=== PATIENT | female | born 1955 | race Caucasian/White ===

== ENCOUNTER 2016-08-06 21:04 | Emergency (ER) | payer OTHER ==
[2016-08-06 21:08] VITALS: RESP 18
[2016-08-06] MEDS ORDERED: RX INFO: IV CONTRAST WAS GIVEN 1 EACH MISC MISCELLANE PRN (21:36)
[2016-08-06] MEDS ORDERED: HYDROmorphone 1 MG/ML 1 ML SYRINGE IVP STA (21:36)
[2016-08-06] MEDS ORDERED: ONDANSETRON 4 MG/2 ML VIAL IVP STA (21:36)
[2016-08-06] MEDS ORDERED: SODIUM CHLORIDE 0.9% 1,000 ML IV STA (21:36)
--- NOTE | 2016-08-06 21:55 | ED ---
Abdominal Pain HPI - General Chief Complaint: Abdominal Pain Stated Complaint: L side pain Time Seen by Provider: 08/06/16 21:32 Source: patient, RN notes reviewed Mode of arrival: wheelchair Limitations: no limitations - History of Present Illness Initial Comments: This a 61-year-old female presents emergency Department with chief complaint of left sided abdominal pain. Patient states that she felt she had some pain a few months ago but states the last few days she's had intense left-sided abdominal pain. Patient states she took her pain medication [place] at home with no relief for her pain. Patient denies any diarrhea, constipation, melena or hematochezia. Patient had some nausea no vomiting. Patient states that nothing seems to make the pain feel better or worse. Patient has no history of kidney stones. She did admit to some urinary frequency and dysuria. Patient states that she called her primary care physician who advised her to come emergency department. Patient denies any history of diverticulitis. Patient states she had a colonoscopy a few years ago which showed no acute abnormality. - Related Data Home Medications Medication Instructions Recorded Confirmed ALPRAZolam [Xanax] 0.25 mg PO TID PRN 08/10/13 08/06/16 Albuterol Nebulized [Ventolin 2.5 mg INHALATION RT-Q6H PRN 08/10/13 08/06/16 Nebulized] Albuterol Sulfate [Ventolin HFA] 2 puff INHALATION RT-Q4H PRN 08/10/13 08/06/16 DULoxetine HCL [Cymbalta] 90 mg PO HS 08/10/13 08/06/16 Fluticasone Propionate [Flonase] 1 spray EA NOSTRIL BID 08/10/13 08/06/16 Levothyroxine Sodium [Synthroid] 25 mcg PO DAILY 08/10/13 08/06/16 Meclizine HCl [Antivert] 12.5 mg PO TID PRN 08/10/13 08/06/16 Omeprazole [PriLOSEC] 20 mg PO AC-BRKFST 08/10/13 08/06/16 Simvastatin [Simvastatin] 40 mg PO HS 08/10/13 08/06/16 Sucralfate [Carafate] 1 gm PO BID 08/10/13 08/06/16 Acetaminophen Tab [Tylenol Tab] 500 mg PO BID PRN 07/13/15 08/06/16 traMADol HCL [Ultram] 50 mg PO Q6H PRN 07/13/15 08/06/16 traZODone HCL [Desyrel] 50 mg PO HS 07/13/15 08/06/16 Amoxicillin 500 mg PO Q8H 08/06/16 08/06/16 Cetirizine HCl [Zyrtec] 5 mg PO DAILY 08/06/16 08/06/16 Diphenox-Atrop 2.5-0.025 mg 1 tab PO QID PRN 08/06/16 08/06/16 [Lomotil] Ferrous Sulfate [Feosol] 325 mg PO BID 08/06/16 08/06/16 HYDROcodone/APAP 5-325MG [[place] 0.5 tab PO Q6H PRN 08/06/16 08/06/16 5-325] HYDROcodone/APAP 5-325MG [[place] 1 tab PO Q6HR PRN 08/06/16 08/06/16 5-325] Pregabalin [Lyrica] 75 mg PO HS 08/06/16 08/06/16 Ranitidine HCl [Zantac] 150 mg PO HS 08/06/16 08/06/16 Previous Rx's Medication Instructions Recorded Bisacodyl [Dulcolax] 5 mg PO DAILY #30 tablet. 08/06/16 Allergies Allergy/AdvReac Type Severity Reaction Status Date / Time aspirin AdvReac Severe GI Bleeding Verified 08/06/16 21:52 codeine AdvReac Abdominal Verified 08/06/16 21:08 Pain menthol AdvReac Chest Pain Verified 08/06/16 21:52 NSAIDS (Non-Steroidal AdvReac Abdominal Verified 08/06/16 21:08 Anti-Inflamma Pain Tetracyclines AdvReac Diarrhea Verified 08/06/16 21:08 Review of Systems ROS Statement: Those systems with pertinent positive or pertinent negative responses have been documented in the HPI. ROS Other: All systems not noted in ROS Statement are negative. 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 HTN IN PAST. HAD STEROID INJ X2 IN PAST WK TO LT SIDE OF THIGH - HAS BURNING PAIN, SCHEDULED TO HAVE EMG. History of Any Multi-Drug Resistant Organisms: None Reported Past Surgical History: Ear Surgery, Joint Replacement, Orthopedic Surgery, Tonsillectomy Additional Past Surgical History / Comment(s): TOTAL LT KNEE. LT ROTATOR CUFF REPAIR. LT HAND JOINT SURG X2. SINUS SURG Past Anesthesia/Blood Transfusion Reactions: Postoperative Nausea & Vomiting ( PONV) Past Psychological History: Anxiety, Depression, Panic Disorder Smoking Status: Never smoker Past Alcohol Use History: None Reported Past Drug Use History: None Reported - Past Family History Mother Family Medical History: Deep Vein Thrombosis (DVT) General Exam Limitations: no limitations General appearance: alert, in no apparent distress Respiratory exam: Present: normal lung sounds bilaterally. Absent: respiratory distress, wheezes, rales, rhonchi, stridor Cardiovascular Exam: Present: regular rate, normal rhythm, normal heart sounds. Absent: systolic murmur, diastolic murmur, rubs, gallop, clicks GI/Abdominal exam: Present: soft, tenderness (Moderate left-sided abdominal tenderness), normal bowel sounds. Absent: distended, guarding, rebound, rigid Back exam: Present: CVA tenderness (L). Absent: CVA tenderness (R) Skin exam: Present: warm, dry, intact, normal color. Absent: rash Course Vital Signs 08/06/16 08/06/16 21:06 22:39 Temperature 98.0 F Pulse Rate 98 89 Respiratory 18 18 Rate Blood Pressure 141/70 134/68 O2 Sat by Pulse 96 96 Oximetry Medical Decision Making - Medical Decision Making 61-year-old female presents emergency Department with left-sided abdominal pain. Patient's laboratory, CT were reviewed there is no acute findings other than chronic constipation. Patient will be given laxatives and enemas to go home with. Return parameters discussed - Lab Data Result diagrams: 08/06/16 21:39 08/06/16 21:39 Lab Results 08/06/16 08/06/16 08/06/16 Range/Units 21:39 21:39 21:39 WBC 6.9 (3.8-10.6) k/uL RBC 4.57 (3.80-5.40) m/uL Hgb 15.1 (11.4-16.0) gm/dL Hct 45.3 (34.0-46.0) % MCV 99.2 (80.0-100.0) fL MCH 33.0 (25.0-35.0) pg MCHC 33.2 (31.0-37.0) g/dL RDW 13.0 (11.5-15.5) % Plt Count 276 (150-450) k/uL Neutrophils % 45 % Lymphocytes % 43 % Monocytes % 5 % Eosinophils % 4 % Basophils % 1 % Neutrophils # 3.1 (1.3-7.7) k/uL Lymphocytes # 3.0 (1.0-4.8) k/uL Monocytes # 0.4 (0-1.0) k/uL Eosinophils # 0.3 (0-0.7) k/uL Basophils # 0.1 (0-0.2) k/uL PT 10.2 (9.0-12.0) sec INR 1.0 (<1.1) APTT 24.1 (22.0-30.0) sec Sodium 143 (137-145) mmol/L Potassium 4.0 (3.5-5.1) mmol/L Chloride 107 (98-107) mmol/L Carbon Dioxide 24 (22-30) mmol/L Anion Gap 12 mmol/L BUN 15 (7-17) mg/dL Creatinine 0.59 (0.52-1.04) mg/dL Est GFR (MDRD) Af Amer >60 (>60 ml/min/1.73 sqM) Est GFR (MDRD) Non-Af >60 (>60 ml/min/1.73 sqM) Glucose 104 H (74-99) mg/dL Calcium 8.8 (8.4-10.2) mg/dL Total Bilirubin 0.5 (0.2-1.3) mg/dL AST 23 (14-36) U/L ALT 28 (9-52) U/L Alkaline Phosphatase 89 (38-126) U/L Total Protein 7.1 (6.3-8.2) g/dL Albumin 4.0 (3.5-5.0) g/dL Amylase 35 (30-110) U/L Lipase 80 (23-300) U/L Urine Color Urine Appearance (Clear) Urine pH (5.0-8.0) Ur Specific [place] (1.001-1.035) Urine Protein (Negative) Urine Glucose (UA) (Negative) Urine Ketones (Negative) Urine Blood (Negative) Urine Nitrite (Negative) Urine Bilirubin (Negative) Urine Urobilinogen (<2.0) mg/dL Ur Leukocyte Esterase (Negative) Urine RBC (0-5) /hpf Urine Mucus (None) /hpf 08/06/16 Range/Units 22:23 WBC (3.8-10.6) k/uL RBC (3.80-5.40) m/uL Hgb (11.4-16.0) gm/dL Hct (34.0-46.0) % MCV (80.0-100.0) fL MCH (25.0-35.0) pg MCHC (31.0-37.0) g/dL RDW (11.5-15.5) % Plt Count (150-450) k/uL Neutrophils % % Lymphocytes % % Monocytes % % Eosinophils % % Basophils % % Neutrophils # (1.3-7.7) k/uL Lymphocytes # (1.0-4.8) k/uL Monocytes # (0-1.0) k/uL Eosinophils # (0-0.7) k/uL Basophils # (0-0.2) k/uL PT (9.0-12.0) sec INR (<1.1) APTT (22.0-30.0) sec Sodium (137-145) mmol/L Potassium (3.5-5.1) mmol/L Chloride (98-107) mmol/L Carbon Dioxide (22-30) mmol/L Anion Gap mmol/L BUN (7-17) mg/dL Creatinine (0.52-1.04) mg/dL Est GFR (MDRD) Af Amer (>60 ml/min/1.73 sqM) Est GFR (MDRD) Non-Af (>60 ml/min/1.73 sqM) Glucose (74-99) mg/dL Calcium (8.4-10.2) mg/dL Total Bilirubin (0.2-1.3) mg/dL AST (14-36) U/L ALT (9-52) U/L Alkaline Phosphatase (38-126) U/L Total Protein (6.3-8.2) g/dL Albumin (3.5-5.0) g/dL Amylase (30-110) U/L Lipase (23-300) U/L Urine Color Light Yellow Urine Appearance Clear (Clear) Urine pH 5.0 (5.0-8.0) Ur Specific [place] 1.026 (1.001-1.035) Urine Protein Negative (Negative) Urine Glucose (UA) Negative (Negative) Urine Ketones Negative (Negative) Urine Blood Negative (Negative) Urine Nitrite Negative (Negative) Urine Bilirubin Negative (Negative) Urine Urobilinogen <2.0 (<2.0) mg/dL Ur Leukocyte Esterase Moderate H (Negative) Urine RBC <1 (0-5) /hpf Urine Mucus Rare H (None) /hpf Disposition Clinical Impression: Constipation, Abdominal pain Disposition: HOME SELF-CARE Condition: Stable Instructions: Constipation (ED) Additional Instructions: Please return to the Emergency Department if symptoms worsen or any other concerns. Prescriptions: Bisacodyl [Dulcolax] 5 mg PO DAILY #30 tablet.dr Referrals: Reid Montano MD [Primary Care Provider] - 1-2 days Time of Disposition: 22:51
[2016-08-06 22:10] LABS: Basophils # (A) 0.1 k/uL (0-0.2); Basophils % (A) 1 %; CH 33.1; CHCM 33.5; Eosinophils # (A) 0.3 k/uL (0-0.7); Eosinophils % (A) 4 %; HCT 45.3 % (34.0-46.0); HDW 2.69; HGB 15.1 gm/dL (11.4-16.0); Luc # (Auto) 0.15; Luc % (Auto) 2; Lymphocytes % (A) 43 %; MCHC 33.2 g/dL (31.0-37.0); MCV 99.2 fL (80.0-100.0); Mean Platelet Volume 7.2; Monocytes # (A) 0.4 k/uL (0-1.0); Monocytes % (A) 5 %; Neutrophils # (A) 3.1 k/uL (1.3-7.7); Neutrophils % (A) 45 %; RBC 4.57 m/uL (3.80-5.40); WBC 6.9 k/uL (3.8-10.6); WBC (Perox) 6.61
[2016-08-06 22:20] LABS: Partial Thromboplastin Time 24.1 sec (22.0-30.0); Prothrombin Time 10.2 sec (9.0-12.0)
[2016-08-06 22:28] LABS: ALT 28 U/L (9-52); AST 23 U/L (14-36); Alkaline Phosphatase 89 U/L (38-126); Amylase 35 U/L (30-110); Anion Gap 12 mmol/L; Blood Urea Nitrogen 15 mg/dL (7-17); Calcium 8.8 mg/dL (8.4-10.2); Carbon Dioxide 24 mmol/L (22-30); Chloride 107 mmol/L (98-107); Glucose 104 mg/dL (74-99); Non-African American GFR(MDRD) >60 (>60 ml/min/1.73 sqM); Sodium 143 mmol/L (137-145); Total Bilirubin 0.5 mg/dL (0.2-1.3); Total Protein 7.1 g/dL (6.3-8.2)
[2016-08-06 22:40] VITALS: BP 134/68; PULSE 89
[2016-08-06 22:45] LABS: Appearance,Urine Clear (Clear); Bilirubin,Urine Negative (Negative); Glucose,Urine (UA) Negative (Negative); Ketones,Urine Negative (Negative); Leukocyte Esterase,Urine Moderate (Negative); Mucus,Urine Rare /hpf; Nitrite,Urine Negative (Negative); Particle Count 577; Protein,Urine Negative (Negative); RBC,Urine <1 /hpf (0-5); Specific Gravity,Urine 1.026 (1.001-1.035); UA Billing (MACRO vs. MICRO) MICRO; Urobilinogen,Urine <2.0 mg/dL (<2.0)
--- NOTE | 2016-08-06 22:47 | CT ---
EXAM: CT Abdomen and Pelvis With Intravenous Contrast CLINICAL HISTORY: Left-sided abdominal pain for 2 days. TECHNIQUE: Axial computed tomography images of the abdomen and pelvis with intravenous contrast. CTDI is 17.60 mGy and DLP is 858.70 mGy-cm. CTDI is 15.70 mGy and DLP is 367 mGy-cm. This CT exam was performed using one or more of the following dose reduction techniques: automated exposure control, adjustment of the mA and/or kV according to patient size, and/or use of iterative reconstruction technique. Coronal and sagittal reformatted images were created and reviewed. CONTRAST: 100 mL of Omniscan administered intravenously. COMPARISON: CT abdomen pelvis dated 04/07/14. FINDINGS: Lower thorax: No acute findings. ABDOMEN: Liver: Unremarkable. Gallbladder and bile ducts: Unremarkable. No calcified stones. Pancreas: Unremarkable. Spleen: Unremarkable. Adrenals: Unremarkable. Kidneys and ureters: Unremarkable. No solid mass. No hydronephrosis. Stomach and bowel: Moderate colonic stool suggesting constipation. No evidence of bowel obstruction. Few colonic diverticula. No evidence of diverticulitis. Appendix: No evidence of appendicitis. PELVIS: Bladder: Unremarkable. Reproductive: Unremarkable as visualized. ABDOMEN and PELVIS: Intraperitoneal space: Unremarkable. No free air. No significant fluid collection. Bones/joints: Degenerative changes. No acute fracture. Soft tissues: Unremarkable. Vasculature: Unremarkable as visualized. No abdominal aortic aneurysm. IMPRESSION: 1. No acute findings to explain left sided abdominal pain. 2. Moderate colonic stool suggesting constipation.
[2016-08-06] MEDS ORDERED: MAGNESIUM CITRATE 296 ML BOTTLE PO ONE (22:54)
[2016-08-06 22:57] VITALS: TEMP 97.4
== END 2016-08-06 22:59 | disposition home or self-care (01) ==
LOC: EC 21:04
DX: K59.00 Constipation, unspecified (principal); R10.9 Unspecified abdominal pain; R11.0 Nausea; R30.0 Dysuria; K21.9 Gastro-esophageal reflux disease without esophagitis; I10 Essential (primary) hypertension; E78.5 Hyperlipidemia, unspecified; E07.9 Disorder of thyroid, unspecified; F41.0 Panic disorder [episodic paroxysmal anxiety]; F32.9 Major depressive disorder, single episode, unspecified; Z79.899 Other long term (current) drug therapy; Z88.6 Allergy status to analgesic agent; Z88.5 Allergy status to narcotic agent; Z88.1 Allergy status to other antibiotic agents; Z88.8 Allergy status to other drugs, medicaments and biological substances
CPT/HCPCS: 36415; 80053; 82150; 83690; 85025; 85610; 85730; 81001; 74177; 99284; 96374; 96375; 96361; J2405; J1170; Q9967

== ENCOUNTER → 2016-12-20 | Outpatient (CLI) | payer OTHER ==
--- NOTE | 2016-12-20 14:39 | XR ---
EXAMINATION TYPE: XR chest 2V DATE OF EXAM: 12/20/2016 COMPARISON: Prior chest x-ray 02/09/2014 HISTORY: Shortness of breath and cough TECHNIQUE: Frontal and lateral views of the chest are obtained. FINDINGS: There is no focal air space opacity, pleural effusion, or pneumothorax seen. The cardiac silhouette size is within normal limits. The osseous structures are intact. IMPRESSION: No acute cardiopulmonary process.
== END | disposition home or self-care (01) ==
LOC: RADXRMAIN 10:17
PROVIDERS: ATTEND Internal Medicine Pulmonary Disease
DX: R05 Cough (principal); R06.02 Shortness of breath
CPT/HCPCS: 71020

== ENCOUNTER → 2017-02-19 | Outpatient (CLI) | payer OTHER | END | disposition home or self-care (01) | LOC: CPPFTMAIN 10:18 | PROVIDERS: ATTEND Internal Medicine | DX: R06.02 Shortness of breath (principal) | CPT/HCPCS: 94060; 94726; 94729 ==

== ENCOUNTER → 2017-03-19 | Outpatient (CLI) | payer OTHER ==
[2017-03-19 11:18] LABS: HCT 39.4 % (34.0-46.0); HGB 13.2 gm/dL (11.4-16.0); MCH 32.8 pg (25.0-35.0); MCHC 33.5 g/dL (31.0-37.0); MCV 97.7 fL (80.0-100.0); Mean Platelet Volume 7.1; Platelet Count 234 k/uL (150-450); RBC 4.03 m/uL (3.80-5.40); RDW 12.7 % (11.5-15.5); WBC 6.1 k/uL (3.8-10.6)
[2017-03-19 11:23] LABS: INR 1.1 (<1.2); Partial Thromboplastin Time 24.9 sec (22.0-30.0); Prothrombin Time 10.6 sec (9.0-12.0)
[2017-03-19 11:24] LABS: Appearance,Urine Clear (Clear); Bacteria,Urine Rare /hpf; Bilirubin,Urine Negative (Negative); Blood,Urine Negative (Negative); Color,Urine Light Yellow; Glucose,Urine (UA) Negative (Negative); Ketones,Urine Negative (Negative); Leukocyte Esterase,Urine Small (Negative); Mucus,Urine Rare /hpf; PH, Urine 5.5 (5.0-8.0); Protein,Urine Negative (Negative); Specific Gravity,Urine 1.003 (1.001-1.035); Squamous Epithelial Cell,Urine <1 /hpf (0-4); Urobilinogen,Urine <2.0 mg/dL (<2.0); WBC,Urine 2 /hpf (0-5)
[2017-03-19 11:35] LABS: ALT 19 U/L (9-52); AST 20 U/L (14-36); Albumin 3.9 g/dL (3.5-5.0); Alkaline Phosphatase 60 U/L (38-126); Anion Gap 8 mmol/L; Blood Urea Nitrogen 15 mg/dL (7-17); Carbon Dioxide 30 mmol/L (22-30); Chloride 105 mmol/L (98-107); Glucose 82 mg/dL (74-99); Potassium 4.1 mmol/L (3.5-5.1); Sodium 143 mmol/L (137-145); Total Bilirubin 0.3 mg/dL (0.2-1.3); Total Protein 6.5 g/dL (6.3-8.2)
== END | disposition home or self-care (01) ==
LOC: LABPAT 10:28
PROVIDERS: ATTEND Orthopaedic Surgery
DX: Z01.812 Encounter for preprocedural laboratory examination (principal); Z79.01 Long term (current) use of anticoagulants
CPT/HCPCS: 36415; 80053; 81001; 85027; 85610; 85730; 87070

== ENCOUNTER 2017-04-02 07:57 | Inpatient (IN) | payer OTHER ==
[2017-03-27 12:07] VITALS: BMI 34.3
[~2017-04-02 07:57] MED LIST: ACETAMINOPHEN TAB 500 MG TAB PO ONE; DEXAMETHASONE SOD PHOSPHATE 10 MG/ML 1 ML VIAL IV ONE; HYDROmorphone 0.5 MG/0.5 ML SYRINGE IVP PRN; LACTATED RINGERS 1,000 ML IV SCH; MELOXICAM 7.5 MG TAB PO ONE; MIDAZOLAM 2 MG/2 ML VIAL IV PRN; ONDANSETRON 4 MG/2 ML VIAL IVP ONE; Pre Op ABX Message 1 EACH MISC MISCELLANE ONE; ROPIVACAINE 246.25 MG, EPINEPHrine 0.5 MG, KETOROLAC 30 MG, cloNIDine HCL/PF 80 MCG, WA... MISCELLANE ONE; TRANEXAMIC ACID 1,000 MG in SODIUM CHLORIDE 0.9% 50 ML IVPB ONE; VANCOMYCIN 1,500 MG in SODIUM CHLORIDE 0.9% 250 ML IVPB ONE
[2017-04-02] MEDS ORDERED: LIDOCAINE 1% 20 ML VIAL (10MG/ML) FOR IV START INTRADERMA ONE (09:48)
--- NOTE | 2017-04-02 11:09 | P.ONQ ---
Anesthesiology Proc Note - PNB - Peripheral Nerve Block Performed Right Adductor Canal Infusion Time Out Performed: Yes Procedure Start Time: 10:53 Procedure Stop Time: 10:59 Indication: Acute Post-Operative Pain, Requested by physician Sedation Type: Sedate with meaningful contact maintained Preparation: Sterile Dressing Position: Supine Catheter: Indwelling Needle Types: On-Q Needle Size: 100mm (4") Needle Gauge: 21 Technique: Ultrasound Injectate: 0.5% Ropivacaine (see comment for volume) (ropi.5% 20cc) Blood Aspirated: No Pain Paresthesia on Injection Noted: No Resistance on Injection: Normal Events: Uneventful and Well Tolerated
[2017-04-02] MEDS ORDERED: ROPIVACAINE 1,100 MG, SODIUM CHLORIDE 0.9% 330 ML MISCELLANE PRN ×2 (11:10)
[2017-04-02] MEDS ORDERED: HYDROcodone/APAP 7.5-325MG 1 EACH TAB PO PRN (11:56)
[2017-04-02] MEDS ORDERED: ONDANSETRON 4 MG/2 ML VIAL IVP PRN (11:56)
[2017-04-02] MEDS ORDERED: NALOXONE 0.4 MG/ML 1 ML VIAL IV PRN (11:56)
[2017-04-02] MEDS ORDERED: NA PHOS,M-B/NA PHOS,DI-BA 133 ML ENEMA RECTAL PRN (11:56)
[2017-04-02] MEDS ORDERED: DIAZEPAM 5 MG TAB PO PRN (11:56)
[2017-04-02] MEDS ORDERED: BISACODYL 10 MG SUPP RECTAL PRN (11:56)
[2017-04-02] MEDS ORDERED: MAGNESIUM HYDROXIDE 2,400 MG/10 ML CUP PO PRN (11:56)
[2017-04-02] MEDS ORDERED: HYDROmorphone 0.5 MG/0.5 ML SYRINGE IVP PRN ×2 (11:56)
[2017-04-02] MEDS ORDERED: MIDAZOLAM 2 MG/2 ML VIAL ONE (12:12)
[2017-04-02] MEDS ORDERED: TRANEXAMIC ACID 1,000 MG/10 ML VIAL ONE (12:12)
[2017-04-02] MEDS ORDERED: LIDOCAINE 1% INJ 10MG/ML (20 ML MDV) ONE (12:12)
[2017-04-02] MEDS ORDERED: SODIUM CHLORIDE 0.9% 100 ML BAG ONE (12:12)
[2017-04-02] MEDS ORDERED: ePHEDrine SULFATE/0.9% NACL/PF 50 MG/5 ML SYRINGE IV ONE (12:12)
[2017-04-02] MEDS ORDERED: PROPOFOL 10 MG/ML 20 ML VIAL IV ONE (12:12)
[2017-04-02] MEDS ORDERED: fentaNYL (PF) 50 MCG/ML 2 ML AMP ONE (12:12)
--- NOTE | 2017-04-02 12:16 | P.OP ---
Date of Procedure: 04/02/17 Preoperative Diagnosis: Severe osteoarthritis right knee Postoperative Diagnosis: Severe osteoarthritis right knee Procedure(s) Performed: Right total knee arthroplasty Implants: Forrest [employer] Nephew Oxinium femoral component size 6, right Forrest [employer] Nephew Savi II right nonporous tibial baseplate size 5 Forrest [employer] Nephew size 11 mm Legion XLPE dished articular insert, size 5-6 Forrest [employer] Nephew Savi II resurfacing patellar component, 32 mm All components were cemented using Jil bone cement.. The articulation is Oxinium on polyethylene. Anesthesia: spinal Surgeon: Josr Mathis Managing Consultant Clinical Professor #1: Eleni Pruitt Estimated Blood Loss (ml): 50 Pathology: other (Bone and cartilage) Condition: stable Disposition: PACU Indications for Procedure: After failure of conservative treatment we discussed the surgical and nonsurgical treatment options at length. Patient wishes to proceed with a total knee arthroplasty. Complications specific to this procedure were discussed at length, including but not limited to infection, bleeding, stiffness , and nerve injury. Patient is aware of all these complications and informed consent was obtained Operative Findings: The operative findings are consistent with severe osteoarthritis of the right knee Description of Procedure: Patient was seen in the preoperative area consent was reviewed and operative site was marked with a skin marker. An adductor canal pain catheter was placed by anesthesia in the preoperative area. Patient was then brought to the operating room and given preoperative antibiotics intravenously. A spinal anesthetic was administered by the anesthesia department. A tourniquet was placed on the upper thigh and the lower extremity was prepped and draped in usual sterile fashion. A gram of transexamic acid was given. A universal timeout was then performed which confirmed the patient's name, surgical site, ALLERGIES, and consent. The lower extremity was then exsanguinated and tourniquet was inflated to 250 mmHg. A standard and anterior midline approach to the knee was performed. The skin and subcutaneous tissue was dissected down to the patellar tendon. A medial parapatellar arthrotomy was then performed. The knee was then extended, the patellar was everted, and the knee was again flexed. Anterior horns of both menisci were excised, and a release was performed to the posterior medial aspect of the knee. On gross visual inspection, there was complete loss of articular cartilage in the medial and patellofemoral joint spaces. There was also significant cartilage damage in the lateral compartment. There were multiple periarticular osteophytes which were then removed with a Ronguer. The femoral canal was then opened with the appropriate drill, and the intramedullary femoral cutting guide was then placed and set for 4 of valgus. The distal femoral cutting block was then pinned in place, and the distal femur was then cut. The cutting block was then removed and the cut was checked for flatness. Next, the sizing guide was then placed and set for 3 external rotation based off of the epicondylar axis and [place] line. After the femur was sized, the appropriate 4-in-1 cutting block was then pinned in place. The anterior condyles were cut without notching. The posterior and chamfer cuts were performed while protecting the collateral ligaments. The cutting block was then removed, and the femoral canal was plugged with autologous bone. Attention was then directed to the tibia. The remaining ACL was removed with a Ronguer, and the tibia was then gently subluxed forward with a large bent knee retractor. Any remaining menisci was excised. The posterior lateral corner was cauterized in order to cauterize the lateral geniculate artery. The extra medullary tibial cutting guide was then placed, set for the appropriate rotation , slope, and depth of resection. The proximal tibia cutting guide was then pinned in place. Proximal tibia was then cut and sized. Next trials were then placed with the appropriate-sized insert. The knee was able to fully extend and flex to 130 and was stable throughout all range of motion. The knee was then extended, patella everted. Patella was then measured, and then using an osteotomy guide, the patella was cut at the appropriate level. The patella was then measured and drilled and the patella trial was then placed. The knee was then taken through range of motion with the patella trial and the patella tracked normally. The knee was then extended patella trial was then removed and the patella was everted. Knee was then flexed and lug holes were drilled through the femoral trial and the femoral trial was then removed. The tibial was then exposed, and the tibial broach guide was then pinned in place after it was set for the appropriate rotation to allow for the most coverage without overhang. The tibia was then reamed and broached. The cut surfaces of bone were then irrigated with pulsatile lavage. The posterior structures were injected with the ropivacaine solution. The knee was also irrigated with Irrisept solution. The components were then opened, the cement was mixed, and the components were then cemented in place. The cement was allowed to harden with the knee in full extension. While the cement was hardening, the remaining soft tissues were then injected with a ropivacaine solution, which consisted of 246.25 mg of ropivacaine, 0.5 mg of epinephrine, 30 mg of Toradol, 80 g of clonidine, and 48.45 mL of sterile water, for a total of 100 mL of fluid injected. After the cemented hardened. The tourniquet was released, and hemostasis was obtained. A second gram of transexamic acid was given. The knee was again irrigated. The knee was again taken through range of motion and found to be stable throughout all range of motion of 0-130 , and the patella tracked normally. The fascia was then closed with #2 strata fix suture. The subcutaneous tissue was closed with 3-0 Vicryl and 3-0 strata fix. Dermabond glue was used for the skin and placed with the knee in flexion. The patient was placed in a sterile silver dressing. Patient was then transferred to recovery room in stable condition. The state tested nursing assistant MALU Brandt was required due the complexity surgery and the need for a skilled surgical orderly. She assisted in positioning, draping, retraction, and closure of the wound.
[2017-04-02] MEDS ORDERED: ceFAZolin 3,000 MG in SODIUM CHLORIDE 0.9% IRRIGATIO 3,000 ML IRRIGATION ONE (12:41)
--- NOTE | 2017-04-02 14:07 | XR ---
Limited right knee HISTORY: Postop 2 views of the right knee correlated to prior exam 10/29/2014 Patient is status post right knee arthroplasty. Alignment is maintained. Lucency in the soft tissues compatible with postop state. IMPRESSION: Orthopedic follow-up.
[2017-04-02] MEDS ORDERED: LACTATED RINGERS 1,000 ML IV ONE (14:48)
[2017-04-02] MEDS ORDERED: DIPHENOX-ATROP 2.5-0.025 MG 1 EACH TAB PO PRN (15:46)
[2017-04-02] MEDS ORDERED: MECLIZINE 12.5 MG TAB PO PRN (15:46)
[2017-04-02] MEDS ORDERED: ACETAMINOPHEN TAB 500 MG TAB PO PRN (15:46)
[2017-04-02] MEDS ORDERED: ALPRAZolam 0.25 MG TAB PO PRN (15:46)
[2017-04-02] MEDS ORDERED: ALBUTEROL NEBULIZED 2.5 MG/3 ML INHALATION PRN (15:46)
[2017-04-02] MEDS: SODIUM CHLORIDE 0.9% 1,000 ML IV SCH (16:06)
--- NOTE | 2017-04-02 17:24 | CONS ---
CONSULTATION DATE OF SERVICE: 04/02/2017 REASON FOR CONSULTATION: Advice regarding DVT, asthma, and other multiple medical issues requested by Dr. Mathis. HISTORY OF PRESENT ILLNESS: This 62-year-old woman with a past medical history of multiple medical problems, possible asthma, DVT, GERD, DJD, history of hypertension, apnea, being followed by Dr. Montano in the outpatient setting underwent right total knee arthroplasty for severe DJD by Dr. Mathis. The patient tolerated the procedure well. There is no history of chest pain. No palpitations. No headache, loss of conscious or seizures. No nausea or vomiting , diarrhea, shortness of breath at this time. PAST MEDICAL HISTORY: History of asthma, DVT, GERD, GI bleed, hypertension, hyperlipidemia, history of degenerative joint disease. MEDICATIONS: Prior to admission include home medications are: 1. Desyrel 100 mg at bedtime. 2. Ultram 50 mg q.6 hours. 3. Carafate 1 gm p.o. b.i.d. 4. Zantac 150 mg q.h.s. 5. Lyrica 75 mg p.o. b.i.d. 6. Prilosec 20 mg b.i.d. 7. Antivert 12.5 mg t.i.d. p.r.n. 8. Synthroid 25 mcg p.o. daily. 9. [place] 7.5 q.4h p.r.n. 10.Flonase 1 spray b.i.d. 11.Lomotil 2.5 q.i.d. p.r.n. 12.Cymbalta 90 mg p.o. q.h.s. 13.Zyrtec 35 mg q.h.s. 14.Pulmicort 1 puff b.i.d. 15.Lipitor 40 mg q.h.s. 16.Ventolin HFA 2 puffs q.4h p.r.n. 17.Tylenol 500 mg b.i.d. p.r.n. 18.Xanax 0.5 t.i.d. p.r.n. ALLERGIES: ARE NAPROSYN, TOPAMAX, ASPIRIN, BENADRYL, CODEINE, MENTHOL, NSAIDS, TETRACYCLINE. FAMILY HISTORY: History of DVT in the family. SOCIAL HISTORY: History of smoking. No history of alcohol intake. REVIEW OF SYSTEMS: ENT: No diminished vision. No diminished hearing. CARDIOVASCULAR: No angina. Respiratory: As mentioned earlier. GI no nausea or vomiting. : No dysuria. NERVOUS SYSTEM: As mentioned earlier. ALLERGY/IMMUNOLOGY: As mentioned earlier. Musculoskeletal: As mentioned earlier . Hematology/Oncology: No history of anemia. Endocrine: No diabetes. Hypothyroidism. Constitutional: As mentioned earlier. Dermatology: Negative. Rheumatology: Negative. Psychiatric: As mentioned earlier. PHYSICAL EXAM: Patient is alert, oriented x3. Pulse is 85, blood pressure 116/74, respiration 16, temp is normal. Pulse ox 94% on room air. HEENT: Conjunctivae normal. Oral mucosa moist. Neck is no jugular venous distention. No carotid bruit. No lymph node enlargement. Cardiovascular S1-S2 muffled. No S3, no S4. Respiratory: Breath sounds diminished in the bases. No rhonchi and no crackles. ABDOMEN: Soft, nontender. No mass palpable. Legs: Status post knee arthroplasty. Nervous system: Higher functions as mentioned earlier. Moves all four limbs. No focal deficits. Lymphatics: No lymph nodes palpable in the neck, axillae or groin. Skin no ulcer, rash or bleeding. LABS: The CBC/BMP within normal limits. Glucose 120. UA unremarkable. ASSESSMENT: 1. Status post right total knee joint arthroplasty. 2. History of asthma. 3. History of deep vein thrombosis. 4. History of gastrointestinal bleed. 5. Gastroesophageal reflux disease. 6. Hypertension. 7. Hyperlipidemia. 8. History of degenerative joint disease. 9. Hypothyroidism. 10.History of joint replacement. 11.Anxiety, depression, panic disorder. RECOMMENDATION: In this 62-year-old woman who presented after surgery at this time I recommend to continue current medications, management and symptomatic treatment. Otherwise I would recommend DVT prophylaxis and the patient is started resume the home medications. Symptomatic treatment. Xanax for anxiety. Otherwise, we will follow incentive spirometry. Follow the patient closely. The patient will also be asked to follow up with primary care physician closely after discharge. Thank you, Dr. Mathis for letting us participate in the care of this patient. MMODL / IJN: [id number] /
[2017-04-02] MEDS: ALBUTEROL NEBULIZED 2.5 MG/3 ML INHALATION PRN (20:25)
[2017-04-02] MEDS: BUDESONIDE 1 MG/2 ML NEBU INHALATION SCH (20:25)
[2017-04-02] MEDS ORDERED: VANCOMYCIN 1,250 MG in SODIUM CHLORIDE 0.9% 250 ML IVPB ONE (21:00)
[2017-04-02] MEDS: FLUTICASONE 50MCG/SPRAY NASAL 16GM EA NOSTRIL SCH (21:19)
[2017-04-02] MEDS: FAMOTIDINE 20 MG TAB PO SCH (21:20)
[2017-04-02] MEDS: SUCRALFATE 1 GM TAB PO SCH (21:20)
[2017-04-02] MEDS: traZODone HCL 50 MG TAB PO SCH (21:20)
[2017-04-02] MEDS: DULoxetine HCL 30 MG CAPSULE.DR PO SCH (21:20)
[2017-04-02] MEDS: ATORVASTATIN 40 MG TAB PO SCH (21:20)
[2017-04-02] MEDS: LORATADINE 10 MG TAB PO SCH (21:20)
[2017-04-02] MEDS: HEPARIN SODIUM,PORCINE 5,000 UNIT/ML 1 ML VIAL SQ SCH (21:21)
[2017-04-02] MEDS: SENNOSIDES-DOCUSATE SODIUM 1 EACH TAB PO SCH (21:28)
[2017-04-02] MEDS: PREGABALIN 75 MG CAP PO SCH (21:29)
[2017-04-03] MEDS: DIAZEPAM 5 MG TAB PO PRN ×2 (00:50→15:12)
[2017-04-03] MEDS: SODIUM CHLORIDE 0.9% 1,000 ML IV SCH ×3 (04:06→17:45)
[2017-04-03] MEDS: LEVOTHYROXINE 25 MCG TAB PO SCH (06:00)
--- NOTE | 2017-04-03 07:24 | P.PN ---
Progress Note - Text Progress Note Date: 04/03/17 . Postoperative day # 1 status post total knee arthroplasty,, and adductor canal catheter placed for postoperative analgesia, currently at ropivacaine 0.2 % 12 mL per hour , ( increased from 8 ) , continuous infusion, visual analogue scale is 5/10, patient using oral pain medication for breakthrough pain. Assessment and plan= Acute postoperative pain, adductor canal catheter for pain control, patient was complaining of pain , and the infusion increased to 12 mL per hour , we'll continue the same management.
[2017-04-03] MEDS: ALBUTEROL NEBULIZED 2.5 MG/3 ML INHALATION PRN (07:27)
[2017-04-03] MEDS: BUDESONIDE 1 MG/2 ML NEBU INHALATION SCH ×2 (07:27→19:06)
[2017-04-03] MEDS: PANTOPRAZOLE 40 MG TABLET PO SCH (07:49)
[2017-04-03 08:21] LABS: Basophils % (A) 0 %; Eosinophils % (A) 0 %; HCT 32.3 % (34.0-46.0); HGB 10.6 gm/dL (11.4-16.0); Lymphocytes # (A) 2.7 k/uL (1.0-4.8); Lymphocytes % (A) 23 %; MCH 31.4 pg (25.0-35.0); MCHC 32.8 g/dL (31.0-37.0); MCV 95.8 fL (80.0-100.0); Mean Platelet Volume 7.6; Monocytes # (A) 0.5 k/uL (0-1.0); Monocytes % (A) 5 %; Neutrophils # (A) 8.1 k/uL (1.3-7.7); Neutrophils % (A) 70 %; Platelet Count 215 k/uL (150-450); RBC 3.37 m/uL (3.80-5.40); RDW 12.9 % (11.5-15.5); WBC 11.5 k/uL (3.8-10.6)
[2017-04-03] MEDS ORDERED: MELOXICAM 7.5 MG TAB PO SCH (09:00)
[2017-04-03] MEDS: HEPARIN SODIUM,PORCINE 5,000 UNIT/ML 1 ML VIAL SQ SCH (09:04)
[2017-04-03] MEDS: SUCRALFATE 1 GM TAB PO SCH ×2 (09:05→22:58)
[2017-04-03] MEDS: FLUTICASONE 50MCG/SPRAY NASAL 16GM EA NOSTRIL SCH ×2 (09:05→23:00)
[2017-04-03] MEDS: PREGABALIN 75 MG CAP PO SCH ×2 (09:05→23:00)
--- NOTE | 2017-04-03 09:06 | P.PN ---
Subjective Progress Note Date: 04/03/17 This is a 62-year-old female who is status post right total knee arthroplasty. This is postoperative day #1. Patient is seen and evaluated at bedside with Dr. Josr Mathis. Patient does complain of muscle cramping to the back of her right lower leg with walking. Patient states she has not been walking with physical therapy yet. Patient denies any fever/chills, numbness, weakness, tingling, abdominal pain, shortness of breath or chest pain. Objective - Vital Signs Vital signs: Vital Signs Temp 98.4 F 04/03/17 07:00 Pulse 80 04/03/17 07:42 Resp 16 04/03/17 07:00 BP 129/74 04/03/17 07:00 Pulse Ox 96 04/03/17 07:00 Intake & Output 04/02/17 04/03/17 04/03/17 18:59 06:59 18:59 Intake Total 1451 715 Output Total 50 Balance 1401 715 Weight 87.997 kg Intake: IV 1451 Intake, IV Titration 715 Amount Sodium Chloride 0.9% 1, 715 000 ml @ 65 mls/hr IV . Q29H18B [facility] Rx#:[id number] Output: Estimated Blood Loss 50 Other: Voiding Method Toilet - Exam Vital signs are stable. Patient is in no acute distress and is alert and oriented 3. Calf is soft but tender to palpation. Discomfort with Mendy's sign. Dressing is clean, dry, and intact. Patient has full foot and ankle motion without difficulty. Neurovascular status and circulatory status are intact. - Labs CBC & Chem 7: 04/03/17 07:35 Labs: Abnormal Lab Results - Last 24 Hours (Table) 04/03/17 Range/Units 07:35 WBC 11.5 H (3.8-10.6) k/uL RBC 3.37 L (3.80-5.40) m/uL Hgb 10.6 L (11.4-16.0) gm/dL Hct 32.3 L (34.0-46.0) % Neutrophils # 8.1 H (1.3-7.7) k/uL Assessment and Plan (1) Primary osteoarthritis of right knee Current Visit: Yes Status: Acute Code(s): M17.11 - UNILATERAL PRIMARY OSTEOARTHRITIS, RIGHT KNEE SNOMED Code(s): 831340824843213 (2) S/P total knee arthroplasty Current Visit: Yes Status: Acute Code(s): Z96.659 - PRESENCE OF UNSPECIFIED ARTIFICIAL KNEE JOINT SNOMED Code(s): 0161330128259 Plan: #1 Continue with routine postoperative care, leave dressing in place for 10 days. #2 Anticoagulation with Coumadin per ortho protocol. Doppler of right lower extremity pending. #3 Physical therapy and CPM today. #4 Appreciate input from medicine. #5 Anticipate discharge to rehab Saturday.
--- NOTE | 2017-04-03 10:25 | US ---
EXAMINATION TYPE: US venous doppler duplex LE RT DATE OF EXAM: 04/03/2017 10:12 AM COMPARISON: Prior right lower extremity venous ultrasound February 09, 2014 CLINICAL HISTORY: pain. Right total knee replacement yesterday (04/02/17). Pain and edema right leg SIDE PERFORMED: right TECHNIQUE: The lower extremity deep venous system is examined utilizing real time linear array sonog raghav with graded compression, doppler sonography and color-flow sonography. VESSELS IMAGED: External Iliac Vein (EIV) Common Femoral Vein Deep Femoral Vein Greater Saphenous Vein * Femoral Vein Popliteal Vein Small Saphenous Vein * Proximal Calf Veins (* superficial vessels) Right Leg: *Technical limitations due to recent surgery and swelling. No evidence of acute DVT as vi sualized. Unable to visualize lower femoral vein for compression. limited evaluation of popliteal vei n due to compression from edema. Grayscale, color doppler, spectral doppler imaging performed of the deep veins of the lower extremiti es. There is normal flow, compressibility, vascular waveforms in visualized portions. Some portions are suboptimally evaluated near site of surgery distal superficial femoral vein and popliteal vein. IMPRESSION: No evidence of acute DVT in visualized portion of right lower extremity above site of s urgery.
[2017-04-03 10:51] LABS: INR 1.3 (<1.2); Prothrombin Time 12.5 sec (9.0-12.0)
[2017-04-03] MEDS ORDERED: HYDROmorphone 2 MG TAB PO PRN ×2 (13:51)
--- NOTE | 2017-04-03 14:27 | XR ---
EXAMINATION TYPE: XR chest 1V DATE OF EXAM: 04/03/2017 COMPARISON: Prior chest x-ray 12/20/2016 HISTORY: Rehabilitation placement TECHNIQUE: Single frontal view of the chest is obtained. FINDINGS: There is no focal air space opacity, pleural effusion, or pneumothorax seen. The cardiac silhouette size is within normal limits. Calcified granuloma present right lower lobe. The osseous structures are intact. IMPRESSION: No acute process.
[2017-04-03] MEDS ORDERED: WARFARIN 5 MG TAB PO ONE (18:00)
[2017-04-03] MEDS ORDERED: WARFARIN 7.5 MG TAB PO ONE (18:00)
[2017-04-03] MEDS ORDERED: WARFARIN 2.5 MG TAB PO ONE (18:00)
[2017-04-03] MEDS: hydrOXYzine PAMOATE 25 MG CAP PO PRN (19:29)
[2017-04-03] MEDS: HYDROcodone/APAP 7.5-325MG 1 EACH TAB PO PRN (19:30)
[2017-04-03] MEDS: ATORVASTATIN 40 MG TAB PO SCH (22:58)
[2017-04-03] MEDS: FAMOTIDINE 20 MG TAB PO SCH (22:59)
[2017-04-03] MEDS: DULoxetine HCL 30 MG CAPSULE.DR PO SCH (22:59)
[2017-04-03] MEDS: LORATADINE 10 MG TAB PO SCH (23:00)
[2017-04-03] MEDS: traZODone HCL 50 MG TAB PO SCH (23:00)
[2017-04-03] MEDS: SENNOSIDES-DOCUSATE SODIUM 1 EACH TAB PO SCH (23:00)
--- NOTE | 2017-04-03 23:00 | PN ---
PROGRESS NOTE DATE OF SERVICE: 04/03/2017 This 62-year-old woman who was admitted after right total knee arthroplasty improved significantly. No chest pain. No palpitations. No fever. EXAM: Alert and oriented x 3. Pulse 90, blood pressure 140/66, respirations 16, temperature 97.8, pulse ox 97% on room air. HEENT: Conjunctivae normal. NECK: No jugular venous distention. CARDIOVASCULAR: S1, S2 muffled. RESPIRATORY: Breath sounds diminished in the bases. A few scattered rhonchi. No crackles. ABDOMEN: Soft, nontender. LEGS: Status post surgery. NERVOUS SYSTEM: Nonfocal. LABS: WBC 7.8, hemoglobin is 10.8, INR 1.3. ASSESSMENT: 1. Status post right total knee arthroplasty. 2. History of asthma. 3. History of deep venous thrombosis. 4. History of gastrointestinal bleed. 5. Gastroesophageal reflux disease. 6. Hypertension. 7. Hyperlipidemia. 8. History of degenerative joint disease. 9. History of hypothyroidism. 10.History of joint replacement. 11.History of anxiety, depression, panic disorder. RECOMMENDATION AND DISCUSSION: Recommend to continue current medical management and symptomatic treatment. incentive spirometry, DVT prophylaxis. Closely follow with Orthopedic Surgery. The patient is started on orthopedic Coumadin protocol. Continue to monitor. Further recommendations to follow. MMODL / IJN: [id number] /
[2017-04-04] MEDS: HYDROcodone/APAP 7.5-325MG 1 EACH TAB PO PRN ×2 (01:04→07:14)
[2017-04-04] MEDS: DIAZEPAM 5 MG TAB PO PRN (01:04)
--- NOTE | 2017-04-04 06:34 | P.PN ---
Progress Note - Text Progress Note Date: 04/04/17 The patient is doing well status post RT total knee replacement on 04/02/17. Her pain is well controlled by a combination of local anesthetic infusion through her adductor canal catheter and oral analgesics. There are no signs of infection around the catheter skin entry site. The local anesthetic infusion will be continued as per protocol.
[2017-04-04] MEDS: LEVOTHYROXINE 25 MCG TAB PO SCH (07:14)
[2017-04-04 07:18] LABS: INR 1.4 (<1.2); Prothrombin Time 13.1 sec (9.0-12.0)
[2017-04-04 07:40] VITALS: BP 119/68; RESP 14; TEMP 97.9
[2017-04-04] MEDS: PREGABALIN 75 MG CAP PO SCH (07:44)
[2017-04-04] MEDS: PANTOPRAZOLE 40 MG TABLET PO SCH (07:44)
[2017-04-04] MEDS: SUCRALFATE 1 GM TAB PO SCH (07:44)
[2017-04-04] MEDS: FLUTICASONE 50MCG/SPRAY NASAL 16GM EA NOSTRIL SCH (07:44)
[2017-04-04] MEDS: SODIUM CHLORIDE 0.9% 1,000 ML IV SCH (07:45)
[2017-04-04] MEDS ORDERED: HYDROcodone/APAP 10-325MG 1 EACH TAB PO PRN ×2 (09:05)
--- NOTE | 2017-04-04 09:09 | P.PN ---
Subjective Progress Note Date: 04/04/17 This is a 62-year-old female who is status post right total knee arthroplasty. This is postoperative day #2. Patient states she had quite a bit of pain in the right knee overnight. Patient states she was up and walking with physical therapy and to the bathroom several times last night. Patient denies any new complaints today. Patient denies any fever/chills, numbness, weakness, tingling , abdominal pain, shortness of breath or chest pain. Objective - Vital Signs Vital signs: Vital Signs Temp 97.9 F 04/04/17 07:00 Pulse 80 04/04/17 07:00 Resp 14 04/04/17 07:00 BP 119/68 04/04/17 07:00 Pulse Ox 96 04/04/17 07:00 Intake & Output 04/03/17 04/04/17 04/04/17 18:59 06:59 18:59 Intake Total 500 Balance 500 Intake: Oral 500 Other: Voiding Method Toilet Toilet # Voids 2 1 - Exam Vital signs are stable. Patient is in no acute distress and is alert and oriented 3. Calf is soft and nontender to palpation. Dressing is clean, dry, and intact. Patient has full foot and ankle motion without difficulty. Neurovascular status and circulatory status are intact. - Labs CBC & Chem 7: 04/03/17 07:35 Labs: Abnormal Lab Results - Last 24 Hours (Table) 04/03/17 04/04/17 Range/Units 10:28 06:52 PT 12.5 H 13.1 H (9.0-12.0) sec INR 1.3 H 1.4 H (<1.2) Assessment and Plan (1) Primary osteoarthritis of right knee Current Visit: Yes Status: Acute Code(s): M17.11 - UNILATERAL PRIMARY OSTEOARTHRITIS, RIGHT KNEE SNOMED Code(s): 907275064979373 (2) S/P total knee arthroplasty Current Visit: Yes Status: Acute Code(s): Z96.659 - PRESENCE OF UNSPECIFIED ARTIFICIAL KNEE JOINT SNOMED Code(s): 8017449921868 Plan: #1 Continue with routine postoperative care, leave dressing in place for 10 days. #2 Anticoagulation with Coumadin per ortho protocol. Doppler of right lower extremity is negative for DVT. #3 Physical therapy and CPM today. #4 Appreciate input from medicine. #5 Will increase [place] for better pain control. #6 Anticipate discharge to rehab Saturday.
[2017-04-04] MEDS: BUDESONIDE 1 MG/2 ML NEBU INHALATION SCH (09:12)
[2017-04-04 09:16] VITALS: PULSE 66
--- NOTE | 2017-04-04 12:53 | P.DS ---
Providers Date of admission: 04/02/17 07:57 Expected date of discharge: 04/04/17 Attending physician: Josr Mathis Consults: 04/02/17 11:56 Consult Physician Routine Consulting Provider: Mac Austin Consult Reason/Comments: medical management and anticoagulation Do you want consulting provider notified?: Yes Primary care physician: Reid Montano - Discharge Diagnosis(es) (1) Primary osteoarthritis of right knee Current Visit: Yes Status: Acute (2) S/P total knee arthroplasty Current Visit: Yes Status: Acute Hospital Course: This is a 62-year-old female with known history of degenerative arthritis of the right knee. The patient presents for evaluation. After discussion and consideration patient elects to proceed with total knee arthroplasty. The patient is seen preoperatively by Dr. Mathis and cleared for surgery. Patient is admitted to [facility] on 04/02/2017 for total knee arthroplasty. The procedures performed without complication or sequelae. The patient is doing well postoperatively. Labs and vital signs are stable on day of discharge. Patient did have a venous Doppler ultrasound of the right lower extremity during admission and this was negative for DVT. On day of discharge patient's knee incision is healing well. There is minimal erythema. There is no drainage noted at this time. There is minimal soft tissue swelling to the knee. Patient has full foot and ankle motion without difficulty or pain. Neurovascular status to the right lower extremity is intact. Patient is discharged to rehab in good condition. Please see med rec for accurate list of home medications. Plan - Discharge Summary Discharge Rx Participant: No New Discharge Prescriptions: New Sennosides-Docusate Sodium [Senokot-S] 2 each PO HS tab HYDROcodone/APAP 10-325MG [Dwight 10-325] 1 - 2 tab PO Q4-6H PRN #90 tab PRN Reason: Pain Warfarin Sodium [Coumadin] 2.5 mg PO DAILY #30 tablet Continue Albuterol Nebulized [Ventolin Nebulized] 2.5 mg INHALATION RT-Q6H PRN PRN Reason: Dyspnea Levothyroxine Sodium [Synthroid] 25 mcg PO DAILY Omeprazole [PriLOSEC] 20 mg PO BID Fluticasone Propionate [Flonase] 1 spray EA NOSTRIL BID DULoxetine HCL [Cymbalta] 90 mg PO HS Sucralfate [Carafate] 1 gm PO BID Meclizine HCl [Antivert] 12.5 mg PO TID PRN PRN Reason: Vertigo Albuterol Sulfate [Ventolin HFA] 2 puff INHALATION RT-Q4H PRN PRN Reason: Dyspnea ALPRAZolam [Xanax] 0.25 mg PO TID PRN PRN Reason: Anxiety/Insomnia Acetaminophen Tab [Tylenol] 500 mg PO BID PRN PRN Reason: Pain traMADol HCL [Ultram] 50 mg PO Q6H PRN PRN Reason: Pain traZODone HCL [Desyrel] 100 mg PO HS Pregabalin [Lyrica] 75 mg PO BID Cetirizine HCl [Zyrtec] 5 mg PO HS Diphenox-Atrop 2.5-0.025 mg [Lomotil] 1 tab PO QID PRN PRN Reason: Diarrhea Ranitidine HCl [Zantac] 150 mg PO HS HYDROcodone/APAP 7.5-325MG [Dwight 7.5-325] 1 tab PO Q4-6H PRN PRN Reason: Pain Atorvastatin [Lipitor] 40 mg PO HS Budesonide [Pulmicort Flexhaler] 1 puff INHALATION RT-BID Discharge Medication List ALPRAZolam [Xanax] 0.25 mg PO TID PRN 08/10/13 [History] Albuterol Nebulized [Ventolin Nebulized] 2.5 mg INHALATION RT-Q6H PRN 08/10/13 [ History] Albuterol Sulfate [Ventolin HFA] 2 puff INHALATION RT-Q4H PRN 08/10/13 [History] DULoxetine HCL [Cymbalta] 90 mg PO HS 08/10/13 [History] Fluticasone Propionate [Flonase] 1 spray EA NOSTRIL BID 08/10/13 [History] Levothyroxine Sodium [Synthroid] 25 mcg PO DAILY 08/10/13 [History] Meclizine HCl [Antivert] 12.5 mg PO TID PRN 08/10/13 [History] Omeprazole [PriLOSEC] 20 mg PO BID 08/10/13 [History] Sucralfate [Carafate] 1 gm PO BID 08/10/13 [History] Acetaminophen Tab [Tylenol] 500 mg PO BID PRN 07/13/15 [History] traMADol HCL [Ultram] 50 mg PO Q6H PRN 07/13/15 [History] traZODone HCL [Desyrel] 100 mg PO HS 07/13/15 [History] Cetirizine HCl [Zyrtec] 5 mg PO HS 08/06/16 [History] Diphenox-Atrop 2.5-0.025 mg [Lomotil] 1 tab PO QID PRN 08/06/16 [History] Pregabalin [Lyrica] 75 mg PO BID 08/06/16 [History] Ranitidine HCl [Zantac] 150 mg PO HS 08/06/16 [History] Atorvastatin [Lipitor] 40 mg PO HS 03/27/17 [History] Budesonide [Pulmicort Flexhaler] 1 puff INHALATION RT-BID 03/27/17 [History] HYDROcodone/APAP 7.5-325MG [Dwight 7.5-325] 1 tab PO Q4-6H PRN 03/27/17 [History] Sennosides-Docusate Sodium [Senokot-S] 2 each PO HS tab 04/03/17 [Rx] HYDROcodone/APAP 10-325MG [Dwight 10-325] 1 - 2 tab PO Q4-6H PRN #90 tab [Rx] Warfarin Sodium [Coumadin] 2.5 mg PO DAILY #30 tablet 04/04/17 [Rx] Follow up Appointment(s)/Referral(s): Reid Montano MD [Primary Care Provider] - 1 Week Josr Mathis DO [Doctor of Osteopathic Medicine] - 04/18/17 1:00 pm (With Eleni) Ambulatory/Diagnostic Orders: Continuous Passive Motion (CPM) Machine [DME.AMB1] Time Frame: 3 Weeks, Location : Determined By Patient Activity/Diet/Wound Care/Special Instructions: Weightbearing as tolerated with a walker CPM 5-6h daily Leave dressing intact. May be removed by home care nurse in 10 days, 2017. May shower with dressing on. [facility] with questions or concerns [phone] Discharge Disposition: TRANSFER TO SNF/ECF
--- NOTE | 2017-04-04 13:44 | PN ---
PROGRESS NOTE DATE OF SERVICE: 04/04/2017 This 62-year-old woman who was admitted after right total knee arthroplasty is improving significantly. No chest pain. No palpitations. No fever. PHYSICAL EXAM: Alert and oriented x3. Pulse 80, blood pressure 119/60, respirations 14, temperature 97.2, pulse ox 98% on room air. HEENT: Conjunctivae normal. Oral mucosa moist. Neck is no jugular venous distention. No carotid bruit. No lymph node enlargement. No thyroid enlargement. CARDIOVASCULAR: S1, S2. No S3, no S4. RESPIRATORY: Breath sounds diminished in the bases. No rhonchi, no crackles. ABDOMEN: Soft. LEGS: Status post knee arthroplasty. NERVOUS SYSTEM: No focal deficits. LABS: INR 1.4. ASSESSMENT: 1. Status post right total knee joint arthroplasty. 2. History of asthma. 3. History of deep vein thrombosis. 4. History of GI bleed. 5. History of gastroesophageal reflux disease. 6. Hypertension. 7. Hyperlipidemia. 8. History of degenerative joint disease. 9. Hypothyroidism. 10.History of joint replacement. 11.Anxiety, depression and panic disorder. RECOMMENDATIONS AND DISCUSSION I recommend to continue current management and symptomatic treatment. Otherwise closely monitor. PT, OT evaluation, possible ECF rehab. Closely follow with outpatient surgery. Further recommendations to follow. MMODL / IJN: [id number] /
[2017-04-04] MEDS: hydrOXYzine PAMOATE 25 MG CAP PO PRN (14:25)
[2017-04-04] MEDS ORDERED: WARFARIN 7.5 MG TAB PO ONE (18:00)
== END 2017-04-04 15:50 | DRG 470 ==
LOC: 2ORMAIN 07:57 → 3SUR 14:43
PROVIDERS: ADMIT Orthopaedic Surgery; ATTEND Orthopaedic Surgery
PROC: 0SRC069 Replacement of Right Knee Joint with Oxidized Zirconium on Polyethylene Synthetic Substitute, Cemented, Open Approach (ICD-10-PCS; principal; 2017-04-02 11:35)
DX: M17.11 Unilateral primary osteoarthritis, right knee (principal); E03.9 Hypothyroidism, unspecified; H91.90 Unspecified hearing loss, unspecified ear; J45.909 Unspecified asthma, uncomplicated; G89.18 Other acute postprocedural pain; F32.9 Major depressive disorder, single episode, unspecified; E78.5 Hyperlipidemia, unspecified; K21.9 Gastro-esophageal reflux disease without esophagitis; I10 Essential (primary) hypertension; F41.0 Panic disorder [episodic paroxysmal anxiety]; Z79.51 Long term (current) use of inhaled steroids; Z79.899 Other long term (current) drug therapy; Z87.891 Personal history of nicotine dependence; Z87.81 Personal history of (healed) traumatic fracture; Z86.718 Personal history of other venous thrombosis and embolism; Z96.652 Presence of left artificial knee joint; Z90.710 Acquired absence of both cervix and uterus; Z87.11 Personal history of peptic ulcer disease; Z88.6 Allergy status to analgesic agent; Z88.1 Allergy status to other antibiotic agents; Z88.5 Allergy status to narcotic agent; Z88.8 Allergy status to other drugs, medicaments and biological substances
CPT/HCPCS: 71045; 85025; 85610; 88300; 94640

== ENCOUNTER → 2017-07-16 | Outpatient (CLI) | payer OTHER ==
--- NOTE | 2017-07-16 10:51 | XR ---
EXAMINATION TYPE: XR ribs RT w pa chest xray DATE OF EXAM: 07/16/2017 COMPARISON: 04/03/2017 HISTORY: Pain TECHNIQUE: 4 views of the ribs and a PA view of the chest are submitted FINDINGS: Arthropathy of the AC joint noted. Lung the anterolateral margin of the right sixth rib the re is a cortical step-off suspicious for a minimally displaced fracture. The lungs are clear. Biapical pleural thickening. No pneumothorax. Linear density in the left upper l obe stable. IMPRESSION: 1. Findings are suggestive of a acute fracture anterolateral right sixth rib.
== END | disposition home or self-care (01) ==
LOC: RADXRMAIN 09:58
PROVIDERS: ATTEND Family Medicine
DX: R07.82 Intercostal pain (principal)

== ENCOUNTER 2022-02-15 16:15 | Inpatient (IN) | payer MEDICARE, OTHER ==
--- NOTE | 2022-02-15 17:48 | XR ---
EXAMINATION: XR chest 2V: 02/15/2022 5:26 PM CLINICAL INDICATION: Chest Pain TECHNIQUE: Departmental protocol COMPARISON: 07/16/2017 FINDINGS: The lungs are clear. The pleural spaces are negative. The cardiac silhouette is not enlarged. The remainder of the mediastinal silhouette is unremarkable. The skeletal structures and soft tissues are negative for acute findings. IMPRESSION: No acute process.
[2022-02-15 17:56] LABS: Basophils # (A) 0.1 k/uL (0-0.2); Basophils % (A) 1 %; Eosinophils # (A) 0.2 k/uL (0-0.7); Eosinophils % (A) 2 %; HCT 39.2 % (34.0-46.0); HGB 13.7 gm/dL (11.4-16.0); Lymphocytes # (A) 2.5 k/uL (1.0-4.8); Lymphocytes % (A) 34 %; MCH 32.2 pg (25.0-35.0); MCHC 34.9 g/dL (31.0-37.0); MCV 92.1 fL (80.0-100.0); Mean Platelet Volume 7.9; Monocytes # (A) 0.4 k/uL (0-1.0); Monocytes % (A) 5 %; Neutrophils # (A) 4.1 k/uL (1.3-7.7); Neutrophils % (A) 55 %; Platelet Count 292 k/uL (150-450); RBC 4.26 m/uL (3.80-5.40); RDW 12.7 % (11.5-15.5); WBC 7.5 k/uL (3.8-10.6)
[2022-02-15 18:18] LABS: ALT 19 U/L (4-34); AST 35 U/L (14-36); African American GFR (CKD) >90 (>60 ml/min/1.73 sqM); Albumin 4.1 g/dL (3.5-5.0); Alkaline Phosphatase 77 U/L (38-126); Anion Gap 6 mmol/L; Blood Urea Nitrogen 16 mg/dL (7-17); Calcium 8.8 mg/dL (8.4-10.2); Carbon Dioxide 27 mmol/L (22-30); Chloride 108 mmol/L (98-107); Glucose 102 mg/dL (74-99); Non-African American GFR(CKD) >90 (>60 ml/min/1.73 sqM); Potassium 4.1 mmol/L (3.5-5.1); Sodium 141 mmol/L (137-145); Total Bilirubin 0.5 mg/dL (0.2-1.3); Total Protein 6.8 g/dL (6.3-8.2)
[2022-02-15 18:30] LABS: Partial Thromboplastin Time 24.8 sec (22.0-30.0); Prothrombin Time 10.3 sec (9.0-12.0)
[2022-02-15] MEDS ORDERED: HEPARIN SODIUM 1,000 UN/ML (10ML VL) IV ONE (20:12)
[2022-02-15] MEDS ORDERED: HEPARIN SODIUM 1,000 UN/ML (10ML VL) IV PRN (20:12)
--- NOTE | 2022-02-15 20:43 | ED ---
Chest Pain HPI - General Chief Complaint: Chest Pain Stated Complaint: Irregular labs-sent by PCP Time Seen by Provider: 02/15/22 20:00 Source: patient, family Mode of arrival: ambulatory Limitations: no limitations - History of Present Illness Initial Comments: 67-year-old female with past medical history of gastric ulcer, hypertension, hyperlipidemia who presents to the emergency department with abnormal labs. States that she had some heartburn sensation yesterday morning. She went into the clinic for evaluation. She had her labs drawn. This morning she received a call stating that her labs were abnormal and she had a going to the emergency room for evaluation. Patient denies any current pain. No history of CO. Denies fevers, chills or cough. No ripping or tearing sensation to her back. She does have a history of gastric ulcer however this was several years ago. Denies any active black or bloody stools. No abdominal pain. No other alleviating, precipitating or modifying factors - Related Data Home Medications Medication Instructions Recorded Confirmed Albuterol Nebulized [Ventolin 2.5 mg INHALATION RT-Q6H PRN 08/10/13 02/15/22 Nebulized] Albuterol Sulfate [Ventolin HFA] 2 puff INHALATION RT-Q4H PRN 08/10/13 02/15/22 DULoxetine HCL [Cymbalta] 90 mg PO HS 08/10/13 02/15/22 Fluticasone Propionate [Flonase] 1 spray EA NOSTRIL BID 08/10/13 02/15/22 Levothyroxine Sodium [Synthroid] 25 mcg PO DAILY 08/10/13 02/15/22 Omeprazole [PriLOSEC] 20 mg PO DAILY 08/10/13 02/15/22 Acetaminophen Tab [Tylenol] 500 mg PO BID PRN 07/13/15 02/15/22 traZODone HCL [Desyrel] 50 mg PO HS 07/13/15 02/15/22 Cetirizine HCl [Zyrtec] 5 mg PO HS 08/06/16 02/15/22 Atorvastatin [Lipitor] 40 mg PO HS 03/27/17 02/15/22 ALPRAZolam [Xanax] 0.125 mg PO DAILY PRN 02/15/22 02/15/22 Ascorbic Acid [Vitamin C] 1,000 mg PO DAILY 02/15/22 02/15/22 Budesonide [Pulmicort Flexhaler] 1 puff INHALATION RT-BID 02/15/22 02/15/22 Cholecalciferol [Vitamin D3 (25 25 mcg PO DAILY 02/15/22 02/15/22 Mcg = 1000 Iu)] Montelukast [Singulair] 10 mg PO DAILY 02/15/22 02/15/22 Vitamin B Complex 1 cap PO DAILY 02/15/22 02/15/22 Zinc Gluconate [Zinc] 50 mg PO DAILY 02/15/22 02/15/22 flaxseed oiL [[place]-3 Flaxseed Oil] 1,000 mg PO DAILY 02/15/22 02/15/22 Previous Rx's Medication Instructions Recorded Diphenox-Atrop 2.5-0.025 mg 1 tab PO QID PRN #10 tab 04/04/17 [Lomotil] Aspirin 81 mg PO DAILY tab 02/18/22 Nitroglycerin Sl Tabs [Nitrostat] 0.4 mg SUBLINGUAL Q5M PRN #30 tab 02/18/22 Allergies Allergy/AdvReac Type Severity Reaction Status Date / Time naproxen [From Aleve] Allergy Abdominal Verified 02/15/22 20:23 Pain topiramate [From Topamax] Allergy Abdominal Verified 02/15/22 20:23 Pain aspirin AdvReac Severe GI Bleeding Verified 02/15/22 20:23 diphenhydramine AdvReac Severe Wheezing Verified 02/15/22 20:23 [From Benadryl] codeine AdvReac Abdominal Verified 02/15/22 20:23 Pain menthol AdvReac Chest Pain Verified 02/15/22 20:23 NSAIDS (Non-Steroidal AdvReac Abdominal Verified 02/15/22 20:23 Anti-Inflamma Pain Tetracyclines AdvReac Diarrhea Verified 02/15/22 20:23 Review of Systems ROS Statement: Those systems with pertinent positive or pertinent negative responses have been documented in the HPI. ROS Other: All systems not noted in ROS Statement are negative. EKG Findings - EKG Comments: EKG Findings:: EKG demonstrates sinus rhythm with a rate of 97. CT interval 139. QRS 102. QTC of 434. No acute ST segment elevations or depressions Past Medical History Past Medical History: Asthma, GERD/Reflux, GI Bleed, Hearing Disorder / Deafness, Hyperlipidemia, Hypertension, Musculoskeletal Disorder, Osteoarthritis (OA), Thyroid Disorder Additional Past Medical History / Comment(s): DEAF LT EAR, TABLE MOUNTAIN RT EAR. HTN IN PAST. HAD STEROID INJ X2 IN PAST WK TO LT SIDE OF THIGH - HAS BURNING PAIN, SCHEDULED TO HAVE EMG. History of Any Multi-Drug Resistant Organisms: None Reported Past Surgical History: Ear Surgery, Joint Replacement, Orthopedic Surgery, Tonsillectomy Additional Past Surgical History / Comment(s): TOTAL LT KNEE. LT ROTATOR CUFF REPAIR. LT HAND JOINT SURG X2. SINUS SURG, LEFT FEMUR SURGERY, TOTAL RIGHT KNEE Past Anesthesia/Blood Transfusion Reactions: Postoperative Nausea & Vomiting (PONV) Past Psychological History: Anxiety, Depression, Panic Disorder Past Alcohol Use History: None Reported Past Drug Use History: None Reported - Past Family History Brother(s) Family Medical History: Cancer Mother Family Medical History: Deep Vein Thrombosis (DVT) General Exam Limitations: no limitations General appearance: alert, in no apparent distress Head exam: Present: atraumatic, normocephalic, normal inspection Eye exam: Present: normal appearance, PERRL, EOMI. Absent: scleral icterus, conjunctival injection, periorbital swelling ENT exam: Present: normal exam, mucous membranes moist Neck exam: Present: normal inspection. Absent: tenderness, meningismus, lymphadenopathy Respiratory exam: Present: normal lung sounds bilaterally. Absent: respiratory distress, wheezes, rales, rhonchi, stridor Cardiovascular Exam: Present: regular rate, normal rhythm, normal heart sounds. Absent: systolic murmur, diastolic murmur, rubs, gallop, clicks GI/Abdominal exam: Present: soft, normal bowel sounds. Absent: distended, te nderness, guarding, rebound, rigid Extremities exam: Present: normal inspection, full ROM, normal capillary refill. Absent: tenderness, pedal edema, joint swelling, calf tenderness Back exam: Present: normal inspection Neurological exam: Present: alert, oriented X3, CN II-XII intact Psychiatric exam: Present: normal affect, normal mood Skin exam: Present: warm, dry, intact, normal color. Absent: rash Course Vital Signs 02/15/22 02/15/22 02/15/22 16:53 19:29 22:20 Temperature 97.7 F Pulse Rate 95 90 97 Pulse Rate [ 90 Apical] Respiratory 16 16 16 Rate Blood Pressure 157/87 180/96 154/77 O2 Sat by Pulse 95 97 97 Oximetry 02/16/22 02/16/22 02/16/22 01:49 04:34 08:35 Temperature Pulse Rate 77 81 87 Pulse Rate [ Apical] Respiratory 16 14 18 Rate Blood Pressure 118/73 117/74 122/75 O2 Sat by Pulse 96 97 95 Oximetry Chest Pain MDM - MDM Was pt. sent in by a medical professional or institution? PCP office Did you speak to anyone other than the patient for history? brother and niece Did you review nursing and triage notes? yes and I agree Were old charts reviewed? None Differential Diagnosis? pleurisy, NSTEMI, STEMI, coronary vasospasm, takosubo, lab error. This list is not all inclusive EKG interpreted by me (3pts min.)? yes X-rays interpreted by me (1pt min.)? yes CT interpreted by me (1pt min.)? no U/S interpreted by me (1pt. min.)? no What testing was considered but not performed? (CT, X-rays, U/S, labs)? Why? none What meds were considered but not given? Why? SL nitro - patient not having any pain Did you discuss the management of the patient with other professionals? Admitting physician - Dr. redd Did you reconcile home meds? yes Was smoking cessation discussed for >3mins.? no Was critical care preformed (if so, how long)? yes, 35 minutes Were there social determinants of health that impacted care today? How? (Homelessness, low income, unemployed, alcoholism, drug addiction, transportation, low edu. Level, literacy, decrease access to med. care, skilled nursing, rehab)? no Was there de-escalation of care discussed even if they declined? (Discuss DNR or withdrawal of care, Hospice)? no What co-morbidities impacted this encounter? (DM, HTN, Smoking, COPD, CAD, Cancer, CVA, Hep., AIDS, mental health diagnosis, sleep apnea, morbid obesity)? @ -[htn, hld, gi bleed Was patient admitted / discharged? @ -Upon arrival patient was placed into room 28. A thorough history and physical exam was performed. Laboratory studies are conducted. Patient does have a markedly elevated troponin of 0.665. I did recommend aspirin however patient refuses as she does have history of ulcers. States that she cannot have aspirin because she will bleed. She is agreeable to heparin IV. Patient will be admitted for cardiac evaluation and possible cath. Spoke with Dr. Redd who agreed to admission. Undiagnosed new problem with uncertain prognosis? yes Drug Therapy requiring intensive monitoring for toxicity (Heparin, Nitro, Insulin, Cardizem)? heparin Were any procedures done? no Diagnosis/symptom? NSTEMI Acute, or Chronic, or Acute on Chronic? acute Uncomplicated (without systemic symptoms) or Complicated (systemic symptoms)? complicated Side effects of treatment? none Exacerbation, Progression, or Severe Exacerbation] no Poses a threat to life or bodily function? yes Critical Care Time Critical Care Time: Yes Critical Care Time: 35 minutes Disposition Clinical Impression: Acute non-ST elevation myocardial infarction (NSTEMI), Chest pain Disposition: ADMITTED IP TO THIS HOSP Is patient prescribed a controlled substance at d/c from ED?: No Time of Disposition: 20:45 Decision to Admit Reason: Admit from EC Decision Date: 02/15/22 Decision Time: 20:45
[2022-02-15] MEDS ORDERED: NALOXONE 0.4 MG/ML 1 ML VIAL IV PRN (20:51)
[2022-02-15] MEDS ORDERED: ALPRAZolam 0.25 MG TAB PO PRN (21:27)
[2022-02-15] MEDS: HEPARIN SOD,PORK IN 0.45% NACL 25,000 UNIT in 0.45% NACL 1 250ML.BAG IV SCH (21:37)
[2022-02-15] MEDS: traZODone HCL 50 MG TAB PO SCH (21:46)
[2022-02-15] MEDS: DULoxetine HCL 30 MG CAPSULE.DR PO SCH (22:19)
[2022-02-16] MEDS ORDERED: ATORVASTATIN 40 MG TAB PO STA (00:18)
[2022-02-16 02:24] LABS: Basophils # (A) 0.1 k/uL (0-0.2); Basophils % (A) 1 %; Eosinophils # (A) 0.2 k/uL (0-0.7); Eosinophils % (A) 2 %; HCT 37.9 % (34.0-46.0); HGB 12.9 gm/dL (11.4-16.0); Lymphocytes # (A) 3.5 k/uL (1.0-4.8); Lymphocytes % (A) 43 %; MCHC 34.1 g/dL (31.0-37.0); MCV 93.8 fL (80.0-100.0); Mean Platelet Volume 8.1; Monocytes # (A) 0.5 k/uL (0-1.0); Monocytes % (A) 6 %; Neutrophils # (A) 3.7 k/uL (1.3-7.7); Neutrophils % (A) 45 %; Platelet Count 258 k/uL (150-450); RBC 4.04 m/uL (3.80-5.40); WBC 8.2 k/uL (3.8-10.6)
[2022-02-16 02:47] LABS: Partial Thromboplastin Time 45.5 sec (22.0-30.0); Prothrombin Time 10.7 sec (9.0-12.0)
[2022-02-16 08:30] LABS: Basophils # (A) 0.1 k/uL (0-0.2); Basophils % (A) 1 %; Eosinophils # (A) 0.2 k/uL (0-0.7); Eosinophils % (A) 3 %; HGB 13.3 gm/dL (11.4-16.0); Lymphocytes # (A) 2.6 k/uL (1.0-4.8); Lymphocytes % (A) 43 %; MCH 31.6 pg (25.0-35.0); MCHC 34.1 g/dL (31.0-37.0); MCV 92.7 fL (80.0-100.0); Mean Platelet Volume 8.1; Monocytes # (A) 0.4 k/uL (0-1.0); Monocytes % (A) 6 %; Neutrophils # (A) 2.8 k/uL (1.3-7.7); Neutrophils % (A) 45 %; Platelet Count 265 k/uL (150-450); RBC 4.21 m/uL (3.80-5.40); RDW 13.2 % (11.5-15.5); WBC 6.1 k/uL (3.8-10.6)
[2022-02-16] MEDS: MONTELUKAST 10 MG TAB PO SCH (08:32)
[2022-02-16] MEDS: PANTOPRAZOLE 40 MG TABLET PO SCH (08:32)
[2022-02-16] MEDS: LEVOTHYROXINE 25 MCG TAB PO SCH (08:33)
[2022-02-16 08:50] LABS: African American GFR (CKD) >90 (>60 ml/min/1.73 sqM); Anion Gap 6 mmol/L; Blood Urea Nitrogen 15 mg/dL (7-17); Carbon Dioxide 26 mmol/L (22-30); Chloride 108 mmol/L (98-107); Glucose 110 mg/dL (74-99); Non-African American GFR(CKD) >90 (>60 ml/min/1.73 sqM); Sodium 140 mmol/L (137-145)
[2022-02-16 08:51] LABS: Calcium 8.3 mg/dL (8.4-10.2)
[2022-02-16] MEDS ORDERED: ALBUTEROL HFA INHALER INHALATION PRN (09:16)
[2022-02-16] MEDS ORDERED: ALBUTEROL NEBULIZED 2.5 MG/3 ML INHALATION PRN (09:16)
[2022-02-16] MEDS ORDERED: DIPHENOX-ATROP 2.5-0.025 MG 1 EACH TAB PO PRN (09:16)
[2022-02-16] MEDS ORDERED: ACETAMINOPHEN TAB 500 MG TAB PO PRN (09:16)
[2022-02-16] MEDS ORDERED: NITROGLYCERIN SL TABS 0.4 MG TAB SUBLINGUAL PRN (11:04)
[2022-02-16] MEDS ORDERED: ALPRAZolam 0.5 MG TAB PO PRN (11:04)
[2022-02-16] MEDS ORDERED: ALPRAZolam 0.25 MG TAB PO PRN (11:04)
[2022-02-16] MEDS ORDERED: ATORVASTATIN 80 MG TAB PO STA (11:04)
--- NOTE | 2022-02-16 11:17 | P.CRDCN ---
History of Present Illness Consult date: 02/16/22 Consult reason: non-Q-wave SD, chest pain History of present illness: History of present illness: This is a 67-year-old female patient of Dr. Arriaga with past medical history ofhyperlipidemia, asthma, hypothyroidism, gastroesophageal reflux disease, hypertension, asthma. Patient complains of burning in the upper chest area that started at night and thought it was just acid reflux but lasted all day. She had it recur when she was sitting upright. Patient states she went to the [facility] days ago and received a call yesterday that she needed to come in the hospital due to abnormal blood work which was an elevated troponin. She denies having any shortness of breath or difficulty breathing. No nausea. No lightheadedness or dizziness. No cough. Patient denies history of cardiac catheterization. She had a stress test that approximately 2 years ago. Initial blood pressure 157/87 and 180/96. Blood pressure now is 122/75, heart rate in the 80s, playground monitor sinus rhythm. Patient is seen in the emergency center as patient is waiting for a bed on the cardiac stepdown unit. EKG Sinus rhythm with no acute ST changes Chest x-ray reveals no acute process WBC 6.1, hemoglobin 13.3, platelet count 265. Sodium 140, potassium 4.0, BUN 15 and creatinine 0.62. Troponins 0.665, 0.6-0 and 0.584. Home cardiac medications: Atorvastatin 40 mg at bedtime Review Of Systems: At the time of my evaluation: Constitutional: No fever, no chills. No weakness, fatigue or lethargy. EENT: No headache. No dizziness. Lungs: No shortness of breath, cough, no sputum production. No wheezing. Cardiovascular: No chest pain, no lower extremity edema. No palpitations. No paroxysmal nocturnal dyspnea. No orthopnea. No lightheadedness or dizziness. No syncopal episodes. Abdominal: No abdominal pain. No nausea, vomiting. No diarrhea. No constipation. No bloody or tarry stools. No loss of appetite. Genitourinary: No dysuria.. No urinary retention. Musculoskeletal: No myalgias. No muscle weakness, no gait dysfunction, no frequent falls. No back pain. No neck pain. Integumentary: No wounds, no lesions. No rash or pruritus. No unusual bruising. Neurologic: No aphasia. No facial droop. No change in mentation. No head injury. No headache. No paralysis. No paresthesia. Psychiatric: No depression. No anxiety. Endocrine: No abnormal blood sugars. Physical examination: Gen: This is a 67-year-old female. She is resting on ER stretcher and appears to be in no acute distress VS: reviewed HEENT: Head is atraumatic, normocephalic. Pupils equal, round. Sclerae is anicteric. NECK: Supple. No JVD. No lymphadenopathy. No thyromegaly. LUNGS: Clear to auscultation. No wheezes or rhonchi. No intercostal retractions. HEART: Regular rate and rhythm. . ABDOMEN: Soft. Bowel sounds are present. No masses. No tenderness. EXTREMITIES: No pedal edema. No calf tenderness. NEUROLOGICAL: Patient is awake, alert and oriented x3. Cranial nerves 2 through 12 are grossly intact. Assessment: Non-ST elevated myocardial infarction Hypertension Hyperlipidemia asthma Gastroesophageal reflux disease Hypothyroidism Plan: Patient will be scheduled for cardiac catheterization with Dr. Arriaga for today Continue patient on heparin drip Note that patient has a listed allergy to aspirin of GIB Obtain 2-D echocardiogram and Doppler study to assess cardiac structure and function Further recommendations to follow based upon clinical course Thank you kindly for this consultation. Nurse practitioner note has been reviewed, I agree with documented findings and plan of care. Patient was seen and examined. Past Medical History Past Medical History: Asthma, GERD/Reflux, GI Bleed, Hearing Disorder / Deafness, Hyperlipidemia, Hypertension, Musculoskeletal Disorder, Osteoarthritis (OA), Thyroid Disorder Additional Past Medical History / Comment(s): DEAF LT EAR, HABEMATOLEL RT EAR. HTN IN PAST. HAD STEROID INJ X2 IN PAST WK TO LT SIDE OF THIGH - HAS BURNING PAIN, SCHEDULED TO HAVE EMG. History of Any Multi-Drug Resistant Organisms: None Reported Past Surgical History: Ear Surgery, Joint Replacement, Orthopedic Surgery, Tonsillectomy Additional Past Surgical History / Comment(s): TOTAL LT KNEE. LT ROTATOR CUFF REPAIR. LT HAND JOINT SURG X2. SINUS SURG, LEFT FEMUR SURGERY, TOTAL RIGHT KNEE Past Anesthesia/Blood Transfusion Reactions: Postoperative Nausea & Vomiting (PONV) Past Psychological History: Anxiety, Depression, Panic Disorder Past Alcohol Use History: None Reported Past Drug Use History: None Reported - Past Family History Brother(s) Family Medical History: Cancer Mother Family Medical History: Deep Vein Thrombosis (DVT) Medications and Allergies Home Medications Medication Instructions Recorded Confirmed Type Albuterol Nebulized [Ventolin 2.5 mg INHALATION RT-Q6H PRN 08/10/13 02/15/22 History Nebulized] Albuterol Sulfate [Ventolin HFA] 2 puff INHALATION RT-Q4H PRN 08/10/13 02/15/22 History DULoxetine HCL [Cymbalta] 90 mg PO HS 08/10/13 02/15/22 History Fluticasone Propionate [Flonase] 1 spray EA NOSTRIL BID 08/10/13 02/15/22 History Levothyroxine Sodium [Synthroid] 25 mcg PO DAILY 08/10/13 02/15/22 History Omeprazole [PriLOSEC] 20 mg PO DAILY 08/10/13 02/15/22 History Acetaminophen Tab [Tylenol] 500 mg PO BID PRN 07/13/15 02/15/22 History traZODone HCL [Desyrel] 50 mg PO HS 07/13/15 02/15/22 History Cetirizine HCl [Zyrtec] 5 mg PO HS 08/06/16 02/15/22 History Atorvastatin [Lipitor] 40 mg PO HS 03/27/17 02/15/22 History Diphenox-Atrop 2.5-0.025 mg 1 tab PO QID PRN #10 tab 04/04/17 02/15/22 Rx [Lomotil] ALPRAZolam [Xanax] 0.125 mg PO DAILY PRN 02/15/22 02/15/22 History Ascorbic Acid [Vitamin C] 1,000 mg PO DAILY 02/15/22 02/15/22 History Budesonide [Pulmicort Flexhaler] 1 puff INHALATION RT-BID 02/15/22 02/15/22 History Cholecalciferol [Vitamin D3 (25 25 mcg PO DAILY 02/15/22 02/15/22 History Mcg = 1000 Iu)] Montelukast [Singulair] 10 mg PO DAILY 02/15/22 02/15/22 History Vitamin B Complex 1 cap PO DAILY 02/15/22 02/15/22 History Zinc Gluconate [Zinc] 50 mg PO DAILY 02/15/22 02/15/22 History flaxseed oiL [[place]-3 Flaxseed Oil] 1,000 mg PO DAILY 02/15/22 02/15/22 History Allergies Allergy/AdvReac Type Severity Reaction Status Date / Time naproxen [From Aleve] Allergy Abdominal Verified 02/15/22 20:23 Pain topiramate [From Topamax] Allergy Abdominal Verified 02/15/22 20:23 Pain aspirin AdvReac Severe GI Bleeding Verified 02/15/22 20:23 diphenhydramine AdvReac Severe Wheezing Verified 02/15/22 20:23 [From Benadryl] codeine AdvReac Abdominal Verified 02/15/22 20:23 Pain menthol AdvReac Chest Pain Verified 02/15/22 20:23 NSAIDS (Non-Steroidal AdvReac Abdominal Verified 02/15/22 20:23 Anti-Inflamma Pain Tetracyclines AdvReac Diarrhea Verified 02/15/22 20:23 Physical Exam Vitals: Vital Signs Temp Pulse Pulse Resp BP Pulse Ox 02/16/22 04:34 81 14 117/74 97 02/16/22 01:49 77 16 118/73 96 02/15/22 22:20 97 16 154/77 97 02/15/22 19:29 90 90 16 180/96 97 02/15/22 16:53 97.7 F 95 16 157/87 95 Intake and Output 02/15/22 02/16/22 02/16/22 22:59 06:59 14:59 Other: Weight 99.79 kg Results 02/16/22 07:50 02/16/22 07:50 Cardiac Enzymes 02/15/22 02/15/22 02/15/22 Range/Units 17:39 17:39 21:45 AST 35 (14-36) U/L Troponin I 0.665 H* 0.620 H* (0.000-0.034) ng/mL 02/16/22 Range/Units 02:03 AST (14-36) U/L Troponin I 0.584 H* (0.000-0.034) ng/mL Coagulation 02/15/22 02/16/22 Range/Units 17:39 01:58 PT 10.3 10.7 (9.0-12.0) sec APTT 24.8 45.5 H (22.0-30.0) sec CBC 02/15/22 02/16/22 Range/Units 17:39 02:03 WBC 7.5 8.2 (3.8-10.6) k/uL RBC 4.26 4.04 (3.80-5.40) m/uL Hgb 13.7 12.9 (11.4-16.0) gm/dL Hct 39.2 37.9 (34.0-46.0) % Plt Count 292 258 (150-450) k/uL Comprehensive Metabolic Panel 02/15/22 Range/Units 17:39 Sodium 141 (137-145) mmol/L Potassium 4.1 (3.5-5.1) mmol/L Chloride 108 H (98-107) mmol/L Carbon Dioxide 27 (22-30) mmol/L BUN 16 (7-17) mg/dL Creatinine 0.61 (0.52-1.04) mg/dL Glucose 102 H (74-99) mg/dL Calcium 8.8 (8.4-10.2) mg/dL AST 35 (14-36) U/L ALT 19 (4-34) U/L Alkaline Phosphatase 77 (38-126) U/L Total Protein 6.8 (6.3-8.2) g/dL Albumin 4.1 (3.5-5.0) g/dL Current Medications Generic Name Dose Route Start Last Admin Trade Name Freq PRN Reason Stop Dose Admin Alprazolam 0.125 mg 02/15/22 21:27 Alprazolam 0.25 Mg Tab PO DAILY PRN Anxiety/Insomnia Duloxetine HCl 90 mg 02/15/22 21:45 02/15/22 22:19 Duloxetine Hcl 30 Mg Capsule.Dr PO 90 mg HS FARIBA Administration Heparin Sodium (Porcine) 0 unit 02/15/22 20:12 Heparin Sodium 1,000 Un/Ml (10ml Vl) IV PER PROTOCOL PRN Low PTT Protocol Heparin Sodium/Sodium Chloride 250 mls @ 9.979 mls/hr 02/15/22 20:15 02/15/22 21:37 25,000 unit/ Sodium Chloride IV 10 units/kg/hr .Q24H FARIBA 9.979 mls/hr Administration Protocol 10 UNITS/KG/HR Levothyroxine Sodium 25 mcg 02/16/22 06:30 Levothyroxine 25 Mcg Tab PO DAILY@0630 [facility] Montelukast Sodium 10 mg 02/16/22 09:00 Montelukast 10 Mg Tab PO DAILY [facility] Naloxone HCl 0.2 mg 02/15/22 20:51 Naloxone 0.4 Mg/Ml 1 Ml Vial IV Q2M PRN Opioid Reversal Pantoprazole Sodium 40 mg 02/16/22 09:00 Pantoprazole 40 Mg Tablet PO DAILY [facility] Trazodone HCl 50 mg 02/15/22 21:45 02/15/22 21:46 Trazodone Hcl 50 Mg Tab PO 50 mg [facility] Administration Intake and Output 02/15/22 02/16/22 02/16/22 22:59 06:59 14:59 Other: Weight 99.79 kg 02/16/22 02:03 02/15/22 17:39
[2022-02-16] MEDS ORDERED: CALCIUM CARBONATE 500 MG CHEWABLE PO PRN (11:29)
[2022-02-16] MEDS ORDERED: MELATONIN 3 MG TABLET PO PRN (11:29)
[2022-02-16] MEDS ORDERED: ONDANSETRON 4 MG/2 ML VIAL IVP PRN (11:29)
[2022-02-16] MEDS ORDERED: LACTULOSE 20 GM/30 ML CUP PO PRN (11:29)
[2022-02-16] MEDS: ASPIRIN 325 MG TAB PO STA ×2 (11:32→11:35)
[2022-02-16] MEDS: ASCORBIC ACID 500 MG TAB PO SCH (11:35)
[2022-02-16] MEDS ORDERED: VERAPAMIL 2.5 MG/ML 2 ML AMP ONE (11:56)
[2022-02-16] MEDS ORDERED: IV FLUID CONTINUATION 1,000 ML IV ONE (12:15)
[2022-02-16] MEDS ORDERED: fentaNYL (PF) 50 MCG/ML 2 ML AMP ONE (12:23)
[2022-02-16] MEDS ORDERED: HEPARIN SODIUM 1,000 UN/ML (10ML VL) ONE (12:25)
[2022-02-16] MEDS ORDERED: fentaNYL (PF) 50 MCG/ML 2 ML AMP IV ONE (12:26)
[2022-02-16] MEDS ORDERED: LIDOCAINE 1% INJ 10MG/ML (5 ML VIAL-PF) SQ ONE (12:26)
[2022-02-16] MEDS ORDERED: VERAPAMIL SYRINGE (5 MG/10 ML) INTRAARTER ONE (12:27)
[2022-02-16] MEDS ORDERED: HEPARIN SODIUM 1,000 UN/ML (10ML VL) IV ONE (12:33)
[2022-02-16] MEDS: MIDAZOLAM 2 MG/2 ML VIAL IV ONE ×2 (12:35→12:49)
[2022-02-16] MEDS ORDERED: IOPAMIDOL-370 125ML BTL INJ ONE (12:59)
--- NOTE | 2022-02-16 13:04 | P.HPIM ---
History of Present Illness H&P Date: 02/16/22 Chief Complaint: Chest burning This is a pleasant 67-year-old patient who follows with Dr. Montano. Transitional Living Specialist Dr. Arriaga. No prior cardiac history. Chronic stable medical conditions include asthma, GERD, decreased hearing, hypertension, hyperlipidemia, osteoarthritis, hypothyroid, anxiety depression. Patient does have baseline reflux intermittently. Patient started off 2 days ago what she described as a heartburn but much more severe and going across the chest to the left shoulder which progressively got worse yesterday. She did quit out of the clinic and had some blood draw. There was some positive troponin and she was sent in to the hospital. Same. Denies a ny shortness of breath dizziness perspiration did feel tired. Seen by cardiology today for cardiac catheterization. This heartburn feels quite different from her usual heartburn Review of systems: GEN.: Tired EYES: None HEENT: None NECK: None RESPIRATORY: None CARDIOVASCULAR: As above GASTROINTESTINAL: Heartburn GENITOURINARY: None MUSCULOSKELETAL: Joint pain LYMPHATICS: None HEMATOLOGICAL: None PSYCHIATRY: None NEUROLOGICAL: None. Past medical history to include: Asthma, GERD, GI bleed, decreased hearing, hypertension, hyperlipidemia, osteoporosis, hypothyroid, anxiety depression Social history: No smoking or alcohol. Lives alone. 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 Physical examination: VITAL SIGNS: Afebrile, 57, 95/75, 95% room air GENERAL: BMI 39, reclining but awake, not in distress. EYES: Pupils equal. Conjunctiva normal. HEENT: External appearance of nose and ears normal, oral cavity grossly normal. NECK: JVD not raised; masses not palpable. HEART: First and second heart sounds are normal; no edema. LUNGS: Respiratory rate normal; clear to auscultation. ABDOMEN: Soft, nontender, liver spleen not palpable, no masses palpable. PSYCH: Alert and oriented x3; mood and affect normal. MUSCULOSKELETAL:No Clubbing/cyanosis;muscles-grossly intact. OA NEUROLOGICAL: Cranial nerves grossly intact; no facial asymmetry, power and sensation grossly intact. LYMPHATICS: No lymph nodes palpable in the axilla and neck INVESTIGATIONS, reviewed in the clinical context: EKG tracing personally reviewed by me-no sinus rhythm. Chest x-ray film personally reviewed by me-unremarkable White count 6.1 hemoglobin 13.3 platelets 265 sodium 140 potassium 4 creatinine 0.62 Troponin I 0.065, 0.6-0, 0.584 Assessment and plan: -Possible acute non-Q wave ID. Cardiac risk factors include hypertension, hyperlipidemia, age. Patient declined today gastric Plavix because prior GI bleed. Was started on IV heparin the ER. Due for a cardiac cath by cardiology. -Obesity BMI 39 Weight loss measures -Hypothyroid Synthroid 25 g -Primary osteoarthritis Tylenol as needed -Hyperlipidemia Lipitor 40 mg daily at bedtime -GERD PPI -Depression and anxiety not otherwise specified Xanax when necessary, Cymbalta -IV heparin monitoring IV heparin. Home medications resumed. For cardiac catheterization this afternoon. Discussed with patient. Patient does not want to take any aspirin products because of prior GI bleed. 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 HTN IN PAST. HAD STEROID INJ X2 IN PAST WK TO LT SIDE OF THIGH - HAS BURNING PAIN, SCHEDULED TO HAVE EMG. History of Any Multi-Drug Resistant Organisms: None Reported Past Surgical History: Ear Surgery, Joint Replacement, Orthopedic Surgery, Tonsillectomy Additional Past Surgical History / Comment(s): TOTAL LT KNEE. LT ROTATOR CUFF REPAIR. LT HAND JOINT SURG X2. SINUS SURG, LEFT FEMUR SURGERY, TOTAL RIGHT K NEE Past Anesthesia/Blood Transfusion Reactions: Postoperative Nausea & Vomiting (PONV) Past Psychological History: Anxiety, Depression, Panic Disorder Past Alcohol Use History: None Reported Past Drug Use History: None Reported - Past Family History Brother(s) Family Medical History: Cancer Mother Family Medical History: Deep Vein Thrombosis (DVT) Medications and Allergies Home Medications Medication Instructions Recorded Confirmed Type Albuterol Nebulized [Ventolin 2.5 mg INHALATION RT-Q6H PRN 08/10/13 02/15/22 History Nebulized] Albuterol Sulfate [Ventolin HFA] 2 puff INHALATION RT-Q4H PRN 08/10/13 02/15/22 History DULoxetine HCL [Cymbalta] 90 mg PO HS 08/10/13 02/15/22 History Fluticasone Propionate [Flonase] 1 spray EA NOSTRIL BID 08/10/13 02/15/22 History Levothyroxine Sodium [Synthroid] 25 mcg PO DAILY 08/10/13 02/15/22 History Omeprazole [PriLOSEC] 20 mg PO DAILY 08/10/13 02/15/22 History Acetaminophen Tab [Tylenol] 500 mg PO BID PRN 07/13/15 02/15/22 History traZODone HCL [Desyrel] 50 mg PO HS 07/13/15 02/15/22 History Cetirizine HCl [Zyrtec] 5 mg PO HS 08/06/16 02/15/22 History Atorvastatin [Lipitor] 40 mg PO HS 03/27/17 02/15/22 History Diphenox-Atrop 2.5-0.025 mg 1 tab PO QID PRN #10 tab 04/04/17 02/15/22 Rx [Lomotil] ALPRAZolam [Xanax] 0.125 mg PO DAILY PRN 02/15/22 02/15/22 History Ascorbic Acid [Vitamin C] 1,000 mg PO DAILY 02/15/22 02/15/22 History Budesonide [Pulmicort Flexhaler] 1 puff INHALATION RT-BID 02/15/22 02/15/22 History Cholecalciferol [Vitamin D3 (25 25 mcg PO DAILY 02/15/22 02/15/22 History Mcg = 1000 Iu)] Montelukast [Singulair] 10 mg PO DAILY 02/15/22 02/15/22 History Vitamin B Complex 1 cap PO DAILY 02/15/22 02/15/22 History Zinc Gluconate [Zinc] 50 mg PO DAILY 02/15/22 02/15/22 History flaxseed oiL [[place]-3 Flaxseed Oil] 1,000 mg PO DAILY 02/15/22 02/15/22 History Allergies Allergy/AdvReac Type Severity Reaction Status Date / Time naproxen [From Aleve] Allergy Abdominal Verified 02/15/22 20:23 Pain topiramate [From Topamax] Allergy Abdominal Verified 02/15/22 20:23 Pain aspirin AdvReac Severe GI Bleeding Verified 02/15/22 20:23 diphenhydramine AdvReac Severe Wheezing Verified 02/15/22 20:23 [From Benadryl] codeine AdvReac Abdominal Verified 02/15/22 20:23 Pain menthol AdvReac Chest Pain Verified 02/15/22 20:23 NSAIDS (Non-Steroidal AdvReac Abdominal Verified 02/15/22 20:23 Anti-Inflamma Pain Tetracyclines AdvReac Diarrhea Verified 02/15/22 20:23 Physical Exam Vitals: Vital Signs Temp Pulse Pulse Resp BP Pulse Ox 02/16/22 08:35 87 18 122/75 95 02/16/22 04:34 81 14 117/74 97 02/16/22 01:49 77 16 118/73 96 02/15/22 22:20 97 16 154/77 97 02/15/22 19:29 90 90 16 180/96 97 02/15/22 16:53 97.7 F 95 16 157/87 95 Intake and Output 02/15/22 02/16/22 02/16/22 22:59 06:59 14:59 Other: Weight 99.79 kg Results CBC & Chem 7: 02/16/22 07:50 02/16/22 07:50 Labs: Abnormal Lab Results - Last 24 Hours (Table) 02/15/22 02/15/22 02/15/22 Range/Units 17:39 17:39 21:45 APTT (22.0-30.0) sec Chloride 108 H (98-107) mmol/L Glucose 102 H (74-99) mg/dL Calcium (8.4-10.2) mg/dL Troponin I 0.665 H* 0.620 H* (0.000-0.034) ng/mL 02/16/22 02/16/22 02/16/22 Range/Units 01:58 02:03 07:50 APTT 45.5 H (22.0-30.0) sec Chloride 108 H (98-107) mmol/L Glucose 110 H (74-99) mg/dL Calcium 8.3 L (8.4-10.2) mg/dL Troponin I 0.584 H* (0.000-0.034) ng/mL 02/16/22 Range/Units 07:50 APTT 39.1 H (22.0-30.0) sec Chloride (98-107) mmol/L Glucose (74-99) mg/dL Calcium (8.4-10.2) mg/dL Troponin I (0.000-0.034) ng/mL
[2022-02-16] MEDS ORDERED: RX INFO: IV CONTRAST WAS GIVEN 1 EACH MISC MISCELLANE PRN (13:06)
--- NOTE | 2022-02-16 13:14 | P.CARDCATH ---
Date of Procedure: 02/16/22 Description of Procedure: Cardiac Catheterization: The patient is a 67 year old female with known history of hyperlipidemia who has been complaining of severe heartburn 2 days ago had an outpatient troponin evaluation that was abnormal. She was referred to the emergency room, her EKG showed no acute changes. She was evaluated by Dr. Hamlin. Recommendations were made regarding cardiac catheterization, the risks and the complications were discussed with the patient who is in full understanding and agreement. Procedure Description: Patient was brought to veterinary laboratory technician in fasting semi-sedated state after receiving Fentanyl and Benadryl achieiving moderate conscious sedated state. Using Xylocaine Anesthesia and Seldinger technique, a 6-[place] sheath was introduced in the right radial artery . Subsequently, selective coronary angiography was performed using a 5-[place] 3- 1/2 bend right Carmen catheter, the left coronary artery was cannulated using a 5-[place] TIG 4.0 catheter. Attempt to cannulate the left main using a 3.5 left Carmen, 4 Carmen, and Cass catheter were unsuccessful. Multiple views of the coronary artery including hemiaxial views were obtained. The left Carmen catheter was used to cross the aortic valve and LVEDP was calculated. Following that, catheter and sheath were removed. Hemostasis was obtained with deployment of TR band . There was no immediate complication. Patient was returned to room in stable condition. Of note, the patient received a total of 5000 units of intravenous heparin as well as intra-arterial verapamil. Findings: Left main: This is a large size vessel, bifurcating into LAD and left circumflex, left main has no high-grade stenosis LAD: This is a large size vessel, giving rise to large proximal diagonal branch, the LAD tapers down in the distal third. The LAD and its branches have no evidence of high-grade stenosis. Left circumflex: This is a large nondominant vessel giving rise to one large obtuse marginal branch that has no evidence of high-grade stenosis RCA: This is a dominant vessel, large in caliber, bifurcating into PDA and PLV, the RCA and its branches have no evidence of obstructive coronary disease Left Ventriculogram: Not performed Hemodynamics: There was no gradient across the aortic valve, LVEDP was 15-18 mmHg Conclusion: 1. Normal coronary arteries 2. Right dominance Recommendations: I see no evidence of obstructive disease to explain her symptoms, we will continue with medical therapy, review her echocardiogram to rule out any evidence to suggest myocarditis or MIN[place]A. The findings and the recommendations were discussed with the patient and the family and they were in full understanding and agreement. Duration of sedation is 32 minutes.
[2022-02-16] MEDS ORDERED: SODIUM CHLORIDE 0.9% 1,000 ML IV SCH (13:15)
[2022-02-16] MEDS: FLUTICASONE 44 MCG INHALER INHALATION SCH ×2 (14:39→20:37)
[2022-02-16] MEDS: FLUTICASONE 50MCG/SPRAY NASAL 16GM EA NOSTRIL SCH ×2 (14:39→21:05)
[2022-02-16] MEDS: HEPARIN SOD,PORK IN 0.45% NACL 25,000 UNIT in 0.45% NACL 1 250ML.BAG IV SCH (14:40)
--- NOTE | 2022-02-16 17:22 | CA ---
Transthoracic Echo Report Name: Humaira Garza Age: 67 Gender: F : 1955 Exam Date: 02/16/2022 15:12 Exam Location: [facility] Ht (in): 63 Wt (lb): 220 Ordering Physician: Modesta Hedrick Attending/Referring Phys: [id number], [place] Automatic Serging Machine Operator Robyn Malave RDCS Procedure CPT: Indications: LVF Cardiac Hx: Technical Quality: Fair Contrast 1: Total Dose (mL): Contrast 2: Total Dose (mL): MEASUREMENTS (Male / Female) Normal Values 2D ECHO LV Diastolic Diameter PLAX 3.7 cm 4.2 - 5.9 / 3.9 - 5.3 cm LV Systolic Diameter PLAX 2.8 cm IVS Diastolic Thickness 1.2 cm 0.6 - 1.0 / 0.6 - 0.9 cm LVPW Diastolic Thickness 1.1 cm 0.6 - 1.0 / 0.6 - 0.9 cm LV Relative Wall Thickness 0.6 RV Internal Dim ED PLAX 2.9 cm LA Volume 68.0 cm??? 18 - 58 / 22 - 52 cm??? M-MODE Aortic Root Diameter MM 1.8 cm LA Systolic Diameter MM 3.8 cm LA Ao Ratio MM 2.1 AV Cusp Separation MM 1.7 cm DOPPLER AV Peak Velocity 153.9 cm/s AV Peak Gradient 9.5 mmHg AV Mean Velocity 121.3 cm/s AV Mean Gradient 6.3 mmHg AV Velocity Time Integral 34.1 cm LVOT Peak Velocity 132.0 cm/s LVOT Peak Gradient 7.0 mmHg MV Area PHT 4.8 cm??? Mitral E Point Velocity 72.5 cm/s Mitral A Point Velocity 87.3 cm/s Mitral E to A Ratio 0.8 MV Deceleration Time 157.5 ms MV E' Velocity 8.4 cm/s Mitral E to MV E' Ratio 8.6 TR Peak Velocity 178.5 cm/s TR Peak Gradient 12.7 mmHg Right Ventricular Systolic Press 17.6 mmHg FINDINGS Left Ventricle Mildly increased septal wall thickness. Mildly increased posterior wall thickness. Normal left ventricular systolic function with no obvious regional wall motion abnormalities. Left ventricular ejection fraction is estimated at 55-60 %. Right Ventricle Normal right ventricular size and function. Right ventricular systolic pressure within normal limits. Right Atrium Normal right atrial size. Left Atrium Moderately increased left atrial volume. Mildly increased left atrial area. Mitral Valve Structurally normal mitral valve. Mild mitral annular calcification. Mild mitral regurgitation. Aortic Valve No aortic valve stenosis or regurgitation. Tricuspid Valve Structurally normal tricuspid valve. Mild tricuspid regurgitation. Pulmonic Valve Structurally normal pulmonic valve. Trace pulmonic regurgitation. Pericardium No pericardial effusion. Aorta Normal size aortic root and proximal ascending aorta. Transthoracic does not fully evaluate descending aorta however appears to be echodensity of the descending aorta which does not appear clearly artifact. Consider CTA to further evaluate if clinically indicated with differential of dissection or mass. CONCLUSIONS Mild increased left ventricular wall thickness Normal left ventricular ejection fraction 55-60% Mild to moderately dilated left atrium Mild mitral annular calcification Mild mitral regurgitation Mild tricuspid regurgitation No pericardial effusion Transthoracic does not fully evaluate descending aorta however appears to be echodensity of the descending aorta which does not appear clearly artifact. Consider CTA to further evaluate if clinically indicated with differential of dissection or mass. Previewed by: Dr. Logan Ballard DO (Electronically Signed) Final Date: 16 February 2022 17:21
[2022-02-16] MEDS: DULoxetine HCL 30 MG CAPSULE.DR PO SCH (21:04)
[2022-02-16] MEDS: ATORVASTATIN 40 MG TAB PO SCH (21:04)
[2022-02-16] MEDS: traZODone HCL 50 MG TAB PO SCH (21:05)
[2022-02-16] MEDS: LORATADINE 10 MG TAB PO SCH (21:05)
--- NOTE | 2022-02-16 22:51 | CT ---
EXAMINATION TYPE: CT angio chest DATE OF EXAM: 02/16/2022 COMPARISON: None HISTORY: R/O DISSECTION CT DLP: 664.4 mGycm Automated exposure control for dose reduction was used. CONTRAST: Performed with IV Contrast, patient injected with 90 mL of Isovue 370. Images obtained from the thoracic inlet to the diaphragm without and with the IV contrast. There are Three-D postprocessed images. There is normal branching pattern of the great vessels on the aortic arch. Thoracic aorta is intact. No aneurysm or dissection. The ascending aorta measures 2.8 cm. No filling defects seen in the pulmon vaughn arteries. There is no mediastinal adenopathy. There are no hilar masses. The lungs are clear of consolidation. No evidence of a pulmonary mass. No pleural effusion. The upper abdominal soft tissues are intact. There is some spurring in the thoracic spine. No compression frac ture. Sternum is intact. IMPRESSION: Negative exam. No evidence of arterial aneurysm or dissection. No evidence of pulmonary embolism. No suspicious pulmonary mass.
[2022-02-17] MEDS: LEVOTHYROXINE 25 MCG TAB PO SCH (06:15)
[2022-02-17] MEDS ORDERED: HEPARIN SODIUM,PORCINE 2,500 UNIT in SODIUM CHLORIDE 0.9% 250 ML IRRIGATION PRN (07:00)
[2022-02-17] MEDS ORDERED: HEPARIN SODIUM,PORCINE 10,000 UNIT in SODIUM CHLORIDE 0.9% 1,000 ML IRRIGATION PRN (07:00)
[2022-02-17] MEDS: FLUTICASONE 44 MCG INHALER INHALATION SCH ×2 (07:51→19:33)
[2022-02-17] MEDS: ZINC SULFATE 220 MG CAP PO SCH (08:28)
[2022-02-17] MEDS: ASCORBIC ACID 500 MG TAB PO SCH (08:28)
[2022-02-17] MEDS: PANTOPRAZOLE 40 MG TABLET PO SCH (08:28)
[2022-02-17] MEDS: FLUTICASONE 50MCG/SPRAY NASAL 16GM EA NOSTRIL SCH ×2 (08:28→21:03)
[2022-02-17] MEDS: CHOLECALCIFEROL 25 MCG (1000 IU) TABLET PO SCH (08:28)
[2022-02-17] MEDS: MONTELUKAST 10 MG TAB PO SCH (08:28)
[2022-02-17] MEDS: ASPIRIN 81 MG PO SCH (08:29)
[2022-02-17] MEDS ORDERED: NON FORMULARY DRUG (Vitamin B Complex [Vitamin B Complex] 1 EACH Capsule) PO SCH (09:00)
[2022-02-17 11:51] LABS: African American GFR (CKD) >90 (>60 ml/min/1.73 sqM); Anion Gap 10 mmol/L; Blood Urea Nitrogen 16 mg/dL (7-17); Calcium 8.3 mg/dL (8.4-10.2); Carbon Dioxide 21 mmol/L (22-30); Chloride 110 mmol/L (98-107); Glucose 132 mg/dL (74-99); Non-African American GFR(CKD) >90 (>60 ml/min/1.73 sqM); Sodium 141 mmol/L (137-145)
[2022-02-17 11:54] LABS: Potassium 4.1 mmol/L (3.5-5.1)
--- NOTE | 2022-02-17 13:42 | P.PN ---
Subjective Progress Note Date: 02/17/22 This is Zheng Gonzalez NP, I'm dictating on behalf of Dr. Hamlin's H&P and A&P. Patient was interviewed and examined. Patient is a pleasant 67-year-old female who initially came to the hospital with acute chest pain and possible non-ST elevated ID. Patient underwent heart cath yesterday which demonstrated no obvious large vessel disease. Patient had an echocardiogram demonstrating an ejection fraction of 55-60%. Mild to moderately dilated left atrium, mild mitral annular calcification, mild mitral regurgitation, mild tricuspid regurgitation, no pericardial effusion, and what appeared to be a possible echodensity of the descending aorta which wasn't clearly appearing as artifact. Patient underwent a CT angiogram of the chest afterwards to determine the etiology of the echodensity, which was found to be shadow and no obvious acute abnormality. Patient reports today that she is feeling fine. She has had no more episodes of chest pain since admission. From a cardiovascular standpoint the patient can be discharged home. She should continue her atorvastatin and aspirin. She should follow-up with Dr. Arriaga in one week GENERAL: Well-appearing, well-nourished and in no acute distress. NECK: Supple without JVD or thyromegaly. LUNGS: Breath sounds clear to auscultation bilaterally. Respiration equal and unlabored. No wheezes, rales or rhonchi. HEART: Regular rate and rhythm without murmurs, rubs or gallops. S1 and S2 heard. EXTREMITIES: Normal range of motion, no edema. No clubbing or cyanosis. Peripheral pulses intact and strong. VITALS: Temp 98.4, pulse 75, respirations 18, blood pressure 141/64, O2 saturation 99% on room air TELEMETRY: Normal sinus rhythm LABS: Sodium 141, potassium 4.1, B1 16, creatinine 0.57, calcium 8.3 IMPRESSION: 1. Non-ST elevated ID 2. Hypertension 3. Hyperlipidemia 4. Asthma 5. Gastroesophageal reflux disease 6. Hypothyroidism PLAN: Patient may be discharged from a cardiology standpoint Patient should continue atorvastatin and aspirin as prescribed Follow-up with Dr. Arriaga in one week It's felt the origin of the elevated troponins may be from microvessel disease in the heart, as the patient's heart cath demonstrated no large vessel disease Thank you for allowing us to participate in the care of this patient. If leslie keene recommendations are needed, please do not hesitate to contact us. Objective - Vital Signs Vital signs: Vital Signs Temp 98.4 F 02/17/22 08:27 Pulse 85 02/17/22 11:56 Resp 16 02/17/22 11:56 BP 132/62 02/17/22 11:56 Pulse Ox 97 02/17/22 11:56 FiO2 Intake & Output 02/16/22 02/17/22 02/17/22 18:59 06:59 18:59 Intake Total 200 30 848 Balance 200 30 848 Intake: IV 200 30 0.9 30 Intake, IV Titration 250 Amount Heparin Sod,Pork in 0.45% 250 NaCl 25,000 unit In 0.45 % NaCl 1 250ml.bag @ 10 UNITS/KG/HR 9.979 mls/hr IV .Q24H [facility] Rx#: [id number] Oral 598 Other: Voiding Method Toilet Toilet # Voids 2 2 - Labs CBC & Chem 7: 02/16/22 07:50 02/17/22 10:31 Labs: Abnormal Lab Results - Last 24 Hours (Table) 02/17/22 Range/Units 10:31 Chloride 110 H (98-107) mmol/L Carbon Dioxide 21 L (22-30) mmol/L Glucose 132 H (74-99) mg/dL Calcium 8.3 L (8.4-10.2) mg/dL
--- NOTE | 2022-02-17 14:12 | P.PN ---
Progress Note - Text Progress Note Date: 02/17/22 Chief Complaint: Chest burning This is a pleasant 67-year-old patient who follows with Dr. Montano. 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 No prior cardiac history. Chronic stable medical conditions include asthma, GERD, decreased hearing, hypertension, hyperlipidemia, osteoarthritis, hypothyroid, anxiety depression. Patient does have baseline reflux intermittently. Patient started off 2 days ago what she described as a heartburn but much more severe and going across the chest to the left shoulder which progressively got worse yesterday. She did quit out of the clinic and had some blood draw. There was some positive troponin and she was sent in to the hospital. Same. Denies any shortness of breath dizziness perspiration did feel tired. Seen by cardiology today for cardiac catheterization. This heartburn feels quite different from her usual heartburn 02/17/2022: Patient had extravasation of contrast in the left forearm. Hard and cold treatment was done. Arm was elevated overnight. Pain swelling better. Able to make a fist much better. Computed tomography scan of the chest negative for dissection. Cardiac catheterization showed normal coronaries. [place] to be [place]. No chest pain or shortness of breath. Vascular consulted to evaluate left forearm Active Medications Acetaminophen (Acetaminophen Tab 500 Mg Tab) 500 mg PO BID PRN PRN Reason: Pain Albuterol Sulfate (Albuterol Nebulized 2.5 Mg/3 Ml) 2.5 mg INHALATION RT-Q6H PRN PRN Reason: Dyspnea Albuterol Sulfate (Albuterol Hfa Inhaler) 2 puff INHALATION RT-Q4H PRN PRN Reason: Dyspnea Alprazolam (Alprazolam 0.25 Mg Tab) 0.125 mg PO DAILY PRN PRN Reason: Anxiety/Insomnia Last Admin: 02/16/22 23:06 Dose: 0.125 mg Alprazolam (Alprazolam 0.25 Mg Tab) 0.25 mg PO Q6HR PRN PRN Reason: Mild Anxiety Alprazolam (Alprazolam 0.5 Mg Tab) 0.5 mg PO Q6HR PRN PRN Reason: Moderate Anxiety Ascorbic Acid (Ascorbic Acid 500 Mg Tab) 1,000 mg PO DAILY [facility] Last Admin: 02/17/22 08:28 Dose: 1,000 mg Aspirin (Aspirin 81 Mg) 81 mg PO DAILY [facility] Last Admin: 02/17/22 08:29 Dose: 81 mg Atorvastatin Calcium (Atorvastatin 40 Mg Tab) 40 mg PO HS [facility] Last Admin: 02/16/22 21:04 Dose: 40 mg Calcium Carbonate/Glycine (Calcium Carbonate 500 Mg Chewable) 1,000 mg PO Q4HR PRN PRN Reason: Dyspepsia Cholecalciferol (Cholecalciferol 25 Mcg (1000 Iu) Tablet) 25 mcg PO DAILY [facility] Last Admin: 02/17/22 08:28 Dose: 25 mcg Diphenoxylate HCl/Atropine (Diphenox-Atrop 2.5-0.025 Mg 1 Each Tab) 1 each PO QID PRN PRN Reason: Diarrhea Duloxetine HCl (Duloxetine Hcl 30 Mg Capsule.Dr) 90 mg PO [facility] Last Admin: 02/16/22 21:04 Dose: 90 mg Fluticasone Propionate (Fluticasone 44 Mcg Inhaler) 1 puff INHALATION RT-BID [facility] Last Admin: 02/17/22 07:51 Dose: 1 puff Fluticasone Propionate (Fluticasone 50mcg/Pyatt Nasal 16gm) 1 spray EA NOSTRIL BID [facility] Last Admin: 02/17/22 08:28 Dose: 1 spray Heparin Sodium (Porcine) 10, (000 unit/ Sodium Chloride) 1,001 mls @ 999 mls/hr IRRIGATION ONCE PRN PRN Reason: INTRA-OP Stop: 02/17/22 23:00 Heparin Sodium (Porcine) 2,500 (unit/ Sodium Chloride) 250.5 mls @ 250 mls/hr IRRIGATION ONCE PRN PRN Reason: INTRA-OP Stop: 02/17/22 23:00 Lactulose (Lactulose 20 Gm/30 Ml Cup) 20 gm PO DAILY PRN PRN Reason: Constipation Levothyroxine Sodium (Levothyroxine 25 Mcg Tab) 25 mcg PO DAILY@0630 [facility] Last Admin: 02/17/22 06:15 Dose: 25 mcg Loratadine (Loratadine 10 Mg Tab) 5 mg PO [facility] Last Admin: 02/16/22 21:05 Dose: 5 mg Melatonin (Melatonin 3 Mg Tablet) 3 mg PO HS PRN PRN Reason: Insomnia Miscellaneous Information (Rx Info: Iv Contrast Was Given 1 Each Misc) 1 each MISCELLANE DAILY PRN PRN Reason: Per Protocol Stop: 02/18/22 13:07 Montelukast Sodium (Montelukast 10 Mg Tab) 10 mg PO DAILY [facility] Last Admin: 02/17/22 08:28 Dose: 10 mg Naloxone HCl (Naloxone 0.4 Mg/Ml 1 Ml Vial) 0.2 mg IV Q2M PRN PRN Reason: Opioid Reversal Nitroglycerin (Nitroglycerin Sl Tabs 0.4 Mg Tab) 0.4 mg SUBLINGUAL Q5M PRN PRN Reason: Chest Pain Ondansetron HCl (Ondansetron 4 Mg/2 Ml Vial) 4 mg IVP Q8HR PRN PRN Reason: Nausea And Vomiting Pantoprazole Sodium (Pantoprazole 40 Mg Tablet) 40 mg PO DAILY [facility] Last Admin: 02/17/22 08:28 Dose: 40 mg Trazodone HCl (Trazodone Hcl 50 Mg Tab) 50 mg PO HS [facility] Last Admin: 02/16/22 21:05 Dose: 50 mg Zinc Sulfate (Zinc Sulfate 220 Mg Cap) 220 mg PO DAILY [facility] Last Admin: 02/17/22 08:28 Dose: 220 mg Past medical history to include: Asthma, GERD, GI bleed, decreased hearing, hypertension, hyperlipidemia, osteoporosis, hypothyroid, anxiety depression Social history: No smoking or alcohol. Lives alone. 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 Physical examination: VITAL SIGNS: 98.4, sitting 85, 16, 132/62, 97% room air GENERAL: BMI 98.4, 85, 16, 132/62, 97% room air EYES: Pupils equal. Conjunctiva normal. HEENT: External appearance of nose and ears normal, oral cavity grossly normal. NECK: JVD not raised; masses not palpable. HEART: First and second heart sounds are normal; no edema. LUNGS: Respiratory rate normal; clear to auscultation. ABDOMEN: Soft, nontender, liver spleen not palpable, no masses palpable. PSYCH: Alert and oriented x3; mood and affect normal. MUSCULOSKELETAL:No Clubbing/cyanosis;muscles-grossly intact. OA. Left forearm swelling. Able to somewhat make a fist. Some local tenderness. INVESTIGATIONS, reviewed in the clinical context: Chest CTA: Negative for aortic dissection 02/17/2022: Potassium 4.1 creatinine 0.57 EKG tracing personally reviewed by me-no sinus rhythm. Chest x-ray film personally reviewed by me-unremarkable White count 6.1 hemoglobin 13.3 platelets 265 sodium 140 potassium 4 creatinine 0.62 Troponin I 0.065, 0.6-0, 0.584 Assessment and plan: -Possible acute non-Q wave MT. Cardiac risk factors include hypertension, hyperlipidemia, age.[place] Cardiac catheterization [Dr. Arriaga] showing normal coronaries. Aspirin. -Left forearm swelling from contrast except physician.: Improving Has done better overnight with hot and cold compresses. Arm elevation. Vascular consult. -Obesity BMI 39 Weight loss measures -Hypothyroid Synthroid 25 g -Primary osteoarthritis Tylenol as needed -Hyperlipidemia Lipitor 40 mg daily at bedtime -GERD PPI -Depression and anxiety not otherwise specified Xanax when necessary, Cymbalta Pros and cons of aspirin and with a prior history of GI bleed discussed. Patient does want to take the aspirin with the PPI to continue. Vascular consult. Keep left arm elevated. Doing better.
[2022-02-17] MEDS: traZODone HCL 50 MG TAB PO SCH (21:03)
[2022-02-17] MEDS: ATORVASTATIN 40 MG TAB PO SCH (21:03)
[2022-02-17] MEDS: DULoxetine HCL 30 MG CAPSULE.DR PO SCH (21:03)
[2022-02-17] MEDS: LORATADINE 10 MG TAB PO SCH (21:03)
[2022-02-18] MEDS: LEVOTHYROXINE 25 MCG TAB PO SCH (06:28)
[2022-02-18] MEDS: ASCORBIC ACID 500 MG TAB PO SCH (07:43)
[2022-02-18] MEDS: CHOLECALCIFEROL 25 MCG (1000 IU) TABLET PO SCH (07:43)
[2022-02-18] MEDS: FLUTICASONE 50MCG/SPRAY NASAL 16GM EA NOSTRIL SCH (07:43)
[2022-02-18] MEDS: ASPIRIN 81 MG PO SCH (07:43)
[2022-02-18] MEDS: PANTOPRAZOLE 40 MG TABLET PO SCH (07:43)
[2022-02-18] MEDS: MONTELUKAST 10 MG TAB PO SCH (07:43)
[2022-02-18] MEDS: ZINC SULFATE 220 MG CAP PO SCH (07:43)
[2022-02-18 07:48] VITALS: RESP 16; TEMP 98.3
[2022-02-18] MEDS: FLUTICASONE 44 MCG INHALER INHALATION SCH (08:42)
[2022-02-18 11:22] VITALS: BP 139/75; PULSE 90
--- NOTE | 2022-02-18 13:07 | P.GSCN ---
History of Present Illness Consult date: 02/18/22 Reason for Consult: Possible compartment syndrome left upper extremity. History of present illness: Patient is a 67-year-old female who had undergone computed tomography scan with contrast. 2 separate times the contrast agent went subcutaneously. This occurred approximate 48 hours ago. Her hand and arm swelled significantly however over the last 48 hours her symptoms of arm edema have completely resolved. She denies any pain currently. She indicates she is full and normal range of motion of the shoulder, elbow, wrist and finger joints. 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 HTN IN PAST. HAD STEROID INJ X2 IN PAST WK TO LT SIDE OF THIGH - HAS BURNING PAIN, SCHEDULED TO HAVE EMG. History of Any Multi-Drug Resistant Organisms: None Reported Past Surgical History: Ear Surgery, Joint Replacement, Orthopedic Surgery, Tonsillectomy Additional Past Surgical History / Comment(s): TOTAL LT KNEE. LT ROTATOR CUFF REPAIR. LT HAND JOINT SURG X2. SINUS SURG, LEFT FEMUR SURGERY, TOTAL RIGHT KNEE Past Anesthesia/Blood Transfusion Reactions: Postoperative Nausea & Vomiting (PONV) Past Psychological History: Anxiety, Depression, Panic Disorder Past Alcohol Use History: None Reported Past Drug Use History: None Reported - Past Family History Brother(s) Family Medical History: Cancer Mother Family Medical History: Deep Vein Thrombosis (DVT) Medications and Allergies Home Medications Medication Instructions Recorded Confirmed Type Albuterol Nebulized [Ventolin 2.5 mg INHALATION RT-Q6H PRN 08/10/13 02/15/22 History Nebulized] Albuterol Sulfate [Ventolin HFA] 2 puff INHALATION RT-Q4H PRN 08/10/13 02/15/22 History DULoxetine HCL [Cymbalta] 90 mg PO HS 08/10/13 02/15/22 History Fluticasone Propionate [Flonase] 1 spray EA NOSTRIL BID 08/10/13 02/15/22 History Levothyroxine Sodium [Synthroid] 25 mcg PO DAILY 08/10/13 02/15/22 History Omeprazole [PriLOSEC] 20 mg PO DAILY 08/10/13 02/15/22 History Acetaminophen Tab [Tylenol] 500 mg PO BID PRN 07/13/15 02/15/22 History traZODone HCL [Desyrel] 50 mg PO HS 07/13/15 02/15/22 History Cetirizine HCl [Zyrtec] 5 mg PO HS 08/06/16 02/15/22 History Atorvastatin [Lipitor] 40 mg PO HS 03/27/17 02/15/22 History Diphenox-Atrop 2.5-0.025 mg 1 tab PO QID PRN #10 tab 04/04/17 02/15/22 Rx [Lomotil] ALPRAZolam [Xanax] 0.125 mg PO DAILY PRN 02/15/22 02/15/22 History Ascorbic Acid [Vitamin C] 1,000 mg PO DAILY 02/15/22 02/15/22 History Budesonide [Pulmicort Flexhaler] 1 puff INHALATION RT-BID 02/15/22 02/15/22 History Cholecalciferol [Vitamin D3 (25 25 mcg PO DAILY 02/15/22 02/15/22 History Mcg = 1000 Iu)] Montelukast [Singulair] 10 mg PO DAILY 02/15/22 02/15/22 History Vitamin B Complex 1 cap PO DAILY 02/15/22 02/15/22 History Zinc Gluconate [Zinc] 50 mg PO DAILY 02/15/22 02/15/22 History flaxseed oiL [[place]-3 Flaxseed Oil] 1,000 mg PO DAILY 02/15/22 02/15/22 History Aspirin 81 mg PO DAILY tab 02/18/22 Rx Nitroglycerin Sl Tabs [Nitrostat] 0.4 mg SUBLINGUAL Q5M PRN #30 tab 02/18/22 Rx Allergies Allergy/AdvReac Type Severity Reaction Status Date / Time naproxen [From Aleve] Allergy Abdominal Verified 02/15/22 20:23 Pain topiramate [From Topamax] Allergy Abdominal Verified 02/15/22 20:23 Pain aspirin AdvReac Severe GI Bleeding Verified 02/15/22 20:23 diphenhydramine AdvReac Severe Wheezing Verified 02/15/22 20:23 [From Benadryl] codeine AdvReac Abdominal Verified 02/15/22 20:23 Pain menthol AdvReac Chest Pain Verified 02/15/22 20:23 NSAIDS (Non-Steroidal AdvReac Abdominal Verified 02/15/22 20:23 Anti-Inflamma Pain Tetracyclines AdvReac Diarrhea Verified 02/15/22 20:23 Surgical - Exam Osteopathic Statement: *. No significant issues noted on an osteopathic structural exam other than those noted in the History and Physical/Consult. Vital Signs Temp Pulse Resp BP Pulse Ox 97.7 F 95 16 157/87 95 02/15/22 16:53 02/15/22 16:53 02/15/22 16:53 02/15/22 16:53 02/15/22 16:53 Axillary, brachial, radial pulses are intact on the left. There is no arm edema. Soft tissues are soft and nontender to palpation. Results - Labs 02/16/22 07:50 02/17/22 10:31 Assessment and Plan Assessment: No evidence of compartment syndrome left upper extremity. Plan: There are no forthcoming recommendations from a vascular surgical standpoint is there is no evidence of compartment syndrome or vascular injury. Time with Patient: Less than 30
--- NOTE | 2022-02-18 19:27 | P.DS ---
Providers Date of admission: 02/15/22 20:53 Expected date of discharge: 02/18/22 Attending physician: Mac Austin Consults: 02/15/22 20:51 Consult Physician Urgent Consulting Provider: [facility] Consult Reason/Comments: acute chest pain, nstemi Do you want consulting provider notified?: Yes 02/17/22 12:20 Consult Physician Urgent Consulting Provider: Rd Aguayo Consult Reason/Comments: contrast extravasation in arm, concern for compression synd Do you want consulting provider notified?: Yes [facility] Course: Chief Complaint: Chest burning This is a pleasant 67-year-old patient who follows with Dr. Montano. 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 No prior cardiac history. Chronic stable medical conditions include asthma, GERD, decreased hearing, hypertension, hyperlipidemia, osteoarthritis, hypothyroid, anxiety depression. Patient does have baseline reflux intermittently. Patient started off 2 days ago what she described as a heartburn but much more severe and going across the chest to the left shoulder which progressively got worse yesterday. She did quit out of the clinic and had some blood draw. There was some positive troponin and she was sent in to the hospital. Same. Denies any shortness of breath dizziness perspiration did feel tired. Seen by cardiology today for cardiac catheterization. This heartburn feels quite different from her usual heartburn 02/17/2022: Patient had extravasation of contrast in the left forearm. Hard and cold treatment was done. Arm was elevated overnight. Pain swelling better. Able to make a fist much better. Computed tomography scan of the chest negative for dissection. Cardiac catheterization showed normal coronaries. [place] to be [place]. No chest pain or shortness of breath. Vascular consulted to evaluate left forearm. 02/18/2022: Feeling well. Left forearm swelling was resolved. Care was discussed with the patient. Cardiac diagnosis discussed. Follow-up with cardiology. Ambulatory. No guarding symptoms. Discussion and discharge planning more than 35 minutes Past medical history to include: Asthma, GERD, GI bleed, decreased hearing, hypertension, hyperlipidemia, osteoporosis, hypothyroid, anxiety depression Social history: No smoking or alcohol. Lives alone. 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 Physical examination: VITAL SIGNS: 98.3, 85, 16, 139 with 75, 98% room air GENERAL: Sitting at the edge of the bed, comfortable EYES: Pupils equal. Conjunctiva normal. HEENT: External appearance of nose and ears normal, oral cavity grossly normal. NECK: JVD not raised; masses not palpable. HEART: First and second heart sounds are normal; no edema. LUNGS: Respiratory rate normal; clear to auscultation. ABDOMEN: Soft, nontender, liver spleen not palpable, no masses palpable. PSYCH: Alert and oriented x3; mood and affect normal. MUSCULOSKELETAL:No Clubbing/cyanosis;muscles-grossly intact. OA. Left forearm swelling. Able to somewhat make a fist. Some local tenderness. INVESTIGATIONS, reviewed in the clinical context: Chest CTA: Negative for aortic dissection 02/17/2022: Potassium 4.1 creatinine 0.57 EKG tracing personally reviewed by me-no sinus rhythm. Chest x-ray film personally reviewed by me-unremarkable White count 6.1 hemoglobin 13.3 platelets 265 sodium 140 potassium 4 creatinine 0.62 Troponin I 0.065, 0.6-0, 0.584 Assessment and plan: - acute non-Q wave ND, could be plaque rupture. Cardiac risk factors include hypertension, hyperlipidemia, age.[place] Cardiac catheterization [Dr. Arriaga] showing normal coronaries. Aspirin. -Left forearm swelling from contrast except physician.: Much improved Has done better overnight with hot and cold compresses. Arm elevation. Seen by vascular surgery -Obesity BMI 39 Weight loss measures -Hypothyroid Synthroid 25 g -Primary osteoarthritis Tylenol as needed -Hyperlipidemia Lipitor 40 mg daily at bedtime -GERD PPI -Depression and anxiety not otherwise specified Xanax when necessary, Cymbalta Disposition: Home Plan - Discharge Summary New Discharge Prescriptions: New Aspirin 81 mg PO DAILY tab Nitroglycerin Sl Tabs [Nitrostat] 0.4 mg SUBLINGUAL Q5M PRN #30 tab PRN Reason: Chest Pain Continue Albuterol Nebulized [Ventolin Nebulized] 2.5 mg INHALATION RT-Q6H PRN PRN Reason: Dyspnea Levothyroxine Sodium [Synthroid] 25 mcg PO DAILY Omeprazole [PriLOSEC] 20 mg PO DAILY Fluticasone Propionate [Flonase] 1 spray EA NOSTRIL BID DULoxetine HCL [Cymbalta] 90 mg PO HS Albuterol Sulfate [Ventolin HFA] 2 puff INHALATION RT-Q4H PRN PRN Reason: Dyspnea Acetaminophen Tab [Tylenol] 500 mg PO BID PRN PRN Reason: Pain traZODone HCL [Desyrel] 50 mg PO HS Cetirizine HCl [Zyrtec] 5 mg PO HS Atorvastatin [Lipitor] 40 mg PO HS Diphenox-Atrop 2.5-0.025 mg [Lomotil] 1 tab PO QID PRN #10 tab PRN Reason: Diarrhea Zinc Gluconate [Zinc] 50 mg PO DAILY Vitamin B Complex 1 cap PO DAILY Cholecalciferol [Vitamin D3 (25 Mcg = 1000 Iu)] 25 mcg PO DAILY Ascorbic Acid [Vitamin C] 1,000 mg PO DAILY flaxseed oiL [[place]-3 Flaxseed Oil] 1,000 mg PO DAILY Budesonide [Pulmicort Flexhaler] 1 puff INHALATION RT-BID Montelukast [Singulair] 10 mg PO DAILY ALPRAZolam [Xanax] 0.125 mg PO DAILY PRN PRN Reason: Anxiety/Insomnia Discharge Medication List Albuterol Nebulized [Ventolin Nebulized] 2.5 mg INHALATION RT-Q6H PRN 08/10/13 [History] Albuterol Sulfate [Ventolin HFA] 2 puff INHALATION RT-Q4H PRN 08/10/13 [History] DULoxetine HCL [Cymbalta] 90 mg PO HS 08/10/13 [History] Fluticasone Propionate [Flonase] 1 spray EA NOSTRIL BID 08/10/13 [History] Levothyroxine Sodium [Synthroid] 25 mcg PO DAILY 08/10/13 [History] Omeprazole [PriLOSEC] 20 mg PO DAILY 08/10/13 [History] Acetaminophen Tab [Tylenol] 500 mg PO BID PRN 07/13/15 [History] traZODone HCL [Desyrel] 50 mg PO HS 07/13/15 [History] Cetirizine HCl [Zyrtec] 5 mg PO HS 08/06/16 [History] Atorvastatin [Lipitor] 40 mg PO HS 03/27/17 [History] Diphenox-Atrop 2.5-0.025 mg [Lomotil] 1 tab PO QID PRN #10 tab 04/04/17 [Rx] ALPRAZolam [Xanax] 0.125 mg PO DAILY PRN 02/15/22 [History] Ascorbic Acid [Vitamin C] 1,000 mg PO DAILY 02/15/22 [History] Budesonide [Pulmicort Flexhaler] 1 puff INHALATION RT-BID 02/15/22 [History] Cholecalciferol [Vitamin D3 (25 Mcg = 1000 Iu)] 25 mcg PO DAILY 02/15/22 [History] Montelukast [Singulair] 10 mg PO DAILY 02/15/22 [History] Vitamin B Complex 1 cap PO DAILY 02/15/22 [History] Zinc Gluconate [Zinc] 50 mg PO DAILY 02/15/22 [History] flaxseed oiL [[place]-3 Flaxseed Oil] 1,000 mg PO DAILY 02/15/22 [History] Aspirin 81 mg PO DAILY tab 02/18/22 [Rx] Nitroglycerin Sl Tabs [Nitrostat] 0.4 mg SUBLINGUAL Q5M PRN #30 tab 02/18/22 [Rx] Follow up Appointment(s)/Referral(s): Maryam Arriaga MD [STAFF PHYSICIAN] - 2 Weeks (call Saturday to schedule. Tell them you were discharged from [facility] for chest pain and had a heart cath. ) Reid Montano MD [Primary Care Provider] - 1-2 days (call Saturday to schedule. Tell them you were discharged from [facility] for chest pain and had a heart cath. ) Patient Instructions/Handouts: *Surgery [facility] - After Heart Catheterization - Agricultural Equipment Test Engineer Instructions Activity/Diet/Wound Care/Special Instructions: CARDIAC CATH Support your puncture site by applying firm, steady pressure whenever you cough, laugh, sneeze or bear down to have a bowel movement (2-day restriction). Watch for any excessive bruising, active bleeding, a firm knot forming under your skin, extreme tenderness and signs of infection (redness, swelling, fever). Shower daily, do not soak puncture in a tub bath, jacuzzi, pool, mohr etc. for 1 week. This is to prevent risk of infection. Drink plenty of fluids the day of and day after your procedure to flush contrast dye out of your kidneys. Take all medications as directed. Never stop any new medication without your physicians OK. No driving for 2 days after procedure. 10- pound weight lifting restriction for 1 week. Low sodium/low fat diet. Activity limited until follow up appointment with your felled seam operator chainstitch. In case of any problems, please call [facility] [place] @ [phone]. Discharge/Stand Alone Forms: Who Do I Call?, Personal Engineering Surveyor Discharge Disposition: HOME SELF-CARE
== END 2022-02-18 13:08 | disposition home or self-care (01) | DRG 281 ==
LOC: EC 16:15 → 3SCARD 20:53
PROVIDERS: ADMIT Hospitalist; ATTEND Hospitalist
PROC: 05HC33Z Insertion of Infusion Device into Left Basilic Vein, Percutaneous Approach (ICD-10-PCS; 2022-02-16)
PROC: 4A023N7 Measurement of Cardiac Sampling and Pressure, Left Heart, Percutaneous Approach (ICD-10-PCS; principal; 2022-02-16 09:40)
PROC: B2111ZZ Fluoroscopy of Multiple Coronary Arteries using Low Osmolar Contrast (ICD-10-PCS; principal; 2022-02-16 09:40)
DX: I21.4 Non-ST elevation (NSTEMI) myocardial infarction (principal); T80.818A Extravasation of other vesicant agent, initial encounter; M79.89 Other specified soft tissue disorders; E03.9 Hypothyroidism, unspecified; Z28.310 Unvaccinated for COVID-19; I10 Essential (primary) hypertension; E78.00 Pure hypercholesterolemia, unspecified; E66.9 Obesity, unspecified; Z68.39 Body mass index [BMI] 39.0-39.9, adult; I08.1 Rheumatic disorders of both mitral and tricuspid valves; J45.909 Unspecified asthma, uncomplicated; K21.9 Gastro-esophageal reflux disease without esophagitis; F32.A Depression, unspecified; F41.9 Anxiety disorder, unspecified; F41.0 Panic disorder [episodic paroxysmal anxiety]; G47.00 Insomnia, unspecified; K59.00 Constipation, unspecified; H91.92 Unspecified hearing loss, left ear; M81.0 Age-related osteoporosis without current pathological fracture; M19.91 Primary osteoarthritis, unspecified site; Z79.51 Long term (current) use of inhaled steroids; Z79.890 Hormone replacement therapy; Z79.899 Other long term (current) drug therapy; Z87.11 Personal history of peptic ulcer disease; Z96.653 Presence of artificial knee joint, bilateral; Z88.6 Allergy status to analgesic agent; Z88.1 Allergy status to other antibiotic agents; Z88.5 Allergy status to narcotic agent; Z88.8 Allergy status to other drugs, medicaments and biological substances
CPT/HCPCS: 36415; 71046; 71275; 80048; 80053; 83735; 84484; 85025; 85610; 85730; 93005; 93306; 93458; 94640; 96365; 96366; 99291

== ENCOUNTER → 2022-12-06 | Outpatient (CLI) | payer MEDICARE, OTHER ==
--- NOTE | 2022-12-06 19:03 | NM ---
EXAMINATION TYPE: NM bone/joint limited DATE OF EXAM: 12/06/2022 COMPARISON: NONE CLINICAL INDICATION: Female, 67 years old with history of M79.671 PAIN IN RIGHT FOOT M79.672; TECHNIQUE: After the intravenous administration of 19.1 mCi Tc 99m MDP. Images acquired 3 hours pos t injection. Multiple views of nuclear medicine stress with coronary are submitted. Findings: There is abnormal uptake in the midfoot bilaterally in the posterior aspect of the left ank le. IMPRESSION: Evidence for bilateral midfoot and left posterior osteoarthrosis changes. Correlate with MRI and/or plain film radiographs.
== END | disposition home or self-care (01) ==
LOC: RADNMMAIN 10:20
PROVIDERS: ATTEND Family Medicine
DX: M19.071 Primary osteoarthritis, right ankle and foot (principal); M19.072 Primary osteoarthritis, left ankle and foot
CPT/HCPCS: 78300; A9503

== ENCOUNTER → 2023-02-06 | Outpatient (CLI) | payer MEDICARE, OTHER ==
--- NOTE | 2023-02-06 15:18 | XR ---
EXAMINATION TYPE: XR shoulder complete RT DATE OF EXAM: 02/06/2023 12:22 PM CLINICAL INDICATION:Female, 68 years old with history of M19.019; [facility] COMPARISON: None TECHNIQUE: XR shoulder complete RT; shoulder was examined in AP, internally rotated and scapular Y p rojections. FINDINGS: Degeneration changes with osteophyte formation of the glenoid the acromion and the distal c lavicle. Joint body in the AC joint measuring up to 2 mm. There is severe joint space in the glenohum eral joint. No evidence of fracture. Enthesophyte formation at the insertion of the suprasellar space tendon likely representing tendinopathy. IMPRESSION: Severe glenohumeral and moderate to severe, clavicular joint osteoporosis.
== END | disposition home or self-care (01) ==
LOC: RADXRMAIN 12:12
PROVIDERS: ATTEND Family Medicine
DX: M19.011 Primary osteoarthritis, right shoulder (principal); M81.0 Age-related osteoporosis without current pathological fracture

== ENCOUNTER 2023-07-17 08:34 | Observation (INO) | payer MEDICARE, OTHER ==
--- NOTE | 2023-07-17 09:06 | ED ---
Chest Pain HPI - General Source: patient, RN notes reviewed Mode of arrival: ambulatory Limitations: no limitations - History of Present Illness MD Complaint: chest pain <Fidelina Ibrahim - Last Filed: 07/17/23 09:09> <Joaquín Red - Last Filed: 07/17/23 11:45> - General Chief Complaint: Recheck/Abnormal Lab/Rx Stated Complaint: heartburn Time Seen by Provider: 07/17/23 09:03 - History of Present Illness Initial Comments: Quick Note: This is a 68-year-old female who presents to the emergency department for chest pain. States that it started around 2:30 AM. Describes this as a sharp pain. Patient has a history of coronary artery disease and states that she was diagnosed with this about 16 months ago. The pain feels similar to acid reflux, but states that this is also how the pain felt when she was diagnosed with coronary artery disease. Denies any nausea, vomiting, or shortness of breath. (Fidelina Ibrahim) Dictation was produced using [employer] dictation software. please excuse any grammatical, word or spelling errors. Chief Complaint: 68-year-old female presents to the emergency department with burning sensation of the chest History of Present Illness: Patient is a 68-year-old female states that she was diagnosed with "small artery disease."' States that she burning sensation in her chest woke her up this morning. Pain is nonradiating. She denies any history of heart attacks or coronary artery disease. Patient states that perhaps is her reflux. Patient denies any symptoms at this time. She tried eating and drinking today which did not exacerbate her symptoms. No associated nausea or diaphoresis. The ROS documented in this emergency department record has been reviewed and confirmed by me. Those systems with pertinent positive or negative responses have been documented in the HPI. All other systems are other negative and/or noncontributory. (Joaquín Red) - Related Data Home Medications Medication Instructions Recorded Confirmed Albuterol Nebulized [Ventolin 2.5 mg INHALATION RT-Q6H PRN 08/10/13 02/15/22 Nebulized] Albuterol Sulfate [Ventolin HFA] 2 puff INHALATION RT-Q4H PRN 08/10/13 02/15/22 DULoxetine HCL [Cymbalta] 90 mg PO HS 08/10/13 02/15/22 Fluticasone Propionate [Flonase] 1 spray EA NOSTRIL BID 08/10/13 02/15/22 Levothyroxine Sodium [Synthroid] 25 mcg PO DAILY 08/10/13 02/15/22 Omeprazole [PriLOSEC] 20 mg PO DAILY 08/10/13 02/15/22 Acetaminophen Tab [Tylenol] 500 mg PO BID PRN 07/13/15 02/15/22 traZODone HCL [Desyrel] 50 mg PO HS 07/13/15 02/15/22 Cetirizine HCl [Zyrtec] 5 mg PO HS 08/06/16 02/15/22 Atorvastatin [Lipitor] 40 mg PO HS 03/27/17 02/15/22 ALPRAZolam [Xanax] 0.125 mg PO DAILY PRN 02/15/22 02/15/22 Ascorbic Acid [Vitamin C] 1,000 mg PO DAILY 02/15/22 02/15/22 Budesonide [Pulmicort Flexhaler] 1 puff INHALATION RT-BID 02/15/22 02/15/22 Cholecalciferol [Vitamin D3 (25 25 mcg PO DAILY 02/15/22 02/15/22 Mcg = 1000 Iu)] Montelukast [Singulair] 10 mg PO DAILY 02/15/22 02/15/22 Vitamin B Complex 1 cap PO DAILY 02/15/22 02/15/22 Zinc Gluconate [Zinc] 50 mg PO DAILY 02/15/22 02/15/22 flaxseed oiL [[place]-3 Flaxseed Oil] 1,000 mg PO DAILY 02/15/22 02/15/22 Previous Rx's Medication Instructions Recorded Diphenox-Atrop 2.5-0.025 mg 1 tab PO QID PRN #10 tab 04/04/17 [Lomotil] Aspirin 81 mg PO DAILY tab 02/18/22 Nitroglycerin Sl Tabs [Nitrostat] 0.4 mg SUBLINGUAL Q5M PRN #30 tab 02/18/22 Allergies Allergy/AdvReac Type Severity Reaction Status Date / Time naproxen [From Aleve] Allergy Abdominal Verified 07/17/23 08:41 Pain topiramate [From Topamax] Allergy Abdominal Verified 07/17/23 08:41 Pain aspirin AdvReac Severe GI Bleeding Verified 07/17/23 08:41 diphenhydramine AdvReac Severe Wheezing Verified 07/17/23 08:41 [From Benadryl] codeine AdvReac Abdominal Verified 07/17/23 08:41 Pain menthol AdvReac Chest Pain Verified 07/17/23 08:41 NSAIDS (Non-Steroidal AdvReac Abdominal Verified 07/17/23 08:41 Anti-Inflamma Pain Tetracyclines AdvReac Diarrhea Verified 07/17/23 08:41 Review of Systems ROS Other: All systems not noted in ROS Statement are negative. <Fidelina Ibrahim - Last Filed: 07/17/23 09:09> ROS Other: All systems not noted in ROS Statement are negative. <Joaquín Red - Last Filed: 07/17/23 11:45> ROS Statement: Those systems with pertinent positive or pertinent negative responses have been documented in the HPI. Past Medical History Past Medical History: Asthma, GERD/Reflux, GI Bleed, Hearing Disorder / Deafness, Hyperlipidemia, Hypertension, Musculoskeletal Disorder, Osteoarthritis (OA), Thyroid Disorder Additional Past Medical History / Comment(s): DEAF LT EAR, [place] BAND RT EAR. HTN IN PAST. HAD STEROID INJ X2 IN PAST WK TO LT SIDE OF THIGH - HAS BURNING PAIN, SCHEDULED TO HAVE EMG. History of Any Multi-Drug Resistant Organisms: None Reported Past Surgical History: Ear Surgery, Joint Replacement, Orthopedic Surgery, Tonsillectomy Additional Past Surgical History / Comment(s): TOTAL LT KNEE. LT ROTATOR CUFF REPAIR. LT HAND JOINT SURG X2. SINUS SURG, LEFT FEMUR SURGERY, TOTAL RIGHT KNEE Past Anesthesia/Blood Transfusion Reactions: Postoperative Nausea & Vomiting (PONV) Past Psychological History: Anxiety, Depression, Panic Disorder Past Alcohol Use History: None Reported Past Drug Use History: None Reported - Past Family History Brother(s) Family Medical History: Cancer Mother Family Medical History: Deep Vein Thrombosis (DVT) <Fidelina Ibrahim - Last Filed: 07/17/23 09:09> General Exam Limitations: no limitations <Fidelina Ibrahim - Last Filed: 07/17/23 09:09> <Joaquín Red - Last Filed: 07/17/23 11:45> - General Exam Comments Initial Comments: Visual Physical Exam Vital signs reviewed General: Well-appearing, nontoxic, no acute distress. Head: Normocephalic, atraumatic Eyes: PERRLA, EOMI ENT: Airway patent Chest: Nonlabored breathing Skin: No visual rash, normal skin tone Neuro: Alert and oriented 3 Musculoskeletal: No gross abnormalities (Fidelina Ibrahim) PHYSICAL EXAM: General Impression: Alert and oriented x3, not in acute distress HEENT: Normocephalic atraumatic, extra-ocular movements intact, pupils equal and reactive to light bilaterally, mucous membranes moist. Cardiovascular: Heart regular rate and rhythm Chest: Able to complete full sentences, no retractions, no tachypnea Abdomen: abdomen soft, non-tender, non-distended, no organomegaly Musculoskeletal: Pulses present and equal in all extremities, no peripheral edema Motor: no focal deficits noted Neurological: CN II-XII grossly intact, no focal motor or sensory deficits noted Skin: Intact with no visualized rashes Psych: Normal affect and mood (Joaquín Red) Course Vital Signs 07/17/23 07/17/23 07/17/23 08:36 09:57 10:31 Temperature 98.2 F Pulse Rate 95 76 Pulse Rate [ 68 Pulse Oximetery ] Respiratory 18 18 Rate Blood Pressure 155/75 149/86 O2 Sat by Pulse 98 97 Oximetry Chest Pain MDM <Fidelina Ibrahim - Last Filed: 07/17/23 09:09> <Joaquín Red - Last Filed: 07/17/23 11:45> - MDM I performed the QuickNote portion of this chart. Signed Fidelina Ibrahim PA-C. (Fidelina Ibrahim) My EKG interpretation: Ventricular rate 70, sinus rhythm,. 133, cures 89, QTc 411. No [place] prolongation, no QTC prolongation, no ST or T-wave changes noted. Overall, this EKG is unremarkable Was pt. sent in by a medical professional or institution ([facility], [facility], urgent care, hospital, or residential...) When possible be specific @ -No Did you speak to anyone other than the patient for history (EMS, parent, family, police, friend...)? What history was obtained from this source @ -No Did you review nursing and triage notes (agree or disagree)? Why? @ -I reviewed and agree with nursing and triage notes Were old charts reviewed (outside hosp., previous admission, EMS record, old EKG, old radiological studies, urgent care reports/EKG's, residential records)? Report findings @ -Previous cardiac cath was reviewed from July of last year showing normal coronaries Differential Diagnosis (chest pain, altered mental status, abdominal pain women, abdominal pain men, vaginal bleeding, musculoskeletal, weakness, fever, dyspnea, syncope, headache, dizziness, GI bleed, back pain, seizure, CVA, palpatations, mental health)? @ -Differential Chest Pain: Stable Angina, Unstable Angina, STEMI, NSTEMI Aortic Dissection, Pneumothorax, Musculoskeletal, Esophageal Spasm GERD, Cholecystitis, Pancreatitis, Zoster, this is not meant to be an all-inclusive list. EKG interpreted by me (3pts min.). @ -None done X-rays interpreted by me (1pt min.). @ -Chest x-ray is nonacute CT interpreted by me (1pt min.). @ -None done U/S interpreted by me (1pt. min.). @ -None done What testing was considered but not performed or refused? (CT, X-rays, U/S, labs)? Why? @ -None What meds were considered but not given or refused? Why? @ -None Did you discuss the management of the patient with other professionals (professionals i.e. , PA, JIG MAKER, lab, RT, psych nurse, social media marketing analyst, open hearth melter, teacher, fare enforcement officer, test case developer)? Give summary @ -Case discussed with hospitalist for admission Was smoking cessation discussed for >3mins.? @ -No Was critical care preformed (if so, how long)? @ -No Were there social determinants of health that impacted care today? How? (Homelessness, low income, unemployed, alcoholism, drug addiction, transportation, low edu. Level, literacy, decrease access to med. care, fpc, rehab)? @ -No Was there de-escalation of care discussed even if they declined (Discuss DNR or withdrawal of care, Hospice)? DNR status @ -No What co-morbidities impacted this encounter? (DM, HTN, Smoking, COPD, CAD, Cancer, CVA, ARF, Chemo, Hep., AIDS, mental health diagnosis, sleep apnea, morbid obesity)? @ -None Was patient admitted / discharged? Hospital course, mention meds given and route, prescriptions, significant lab abnormalities, going to OR and other pertinent info. @ -68-year-old female presents emergency department atypical chest pain typical features. Vital signs are stable. Patient had cardiac catheter February of last year that showed normal coronary arteries. Laboratory evaluation obtained. Troponin is negative. Rest of labs within acceptable limits. X-ray is nonacute. Patient be admitted for serial troponins Undiagnosed new problem with uncertain prognosis? @ -No Drug Therapy requiring intensive monitoring for toxicity (Heparin, Nitro, Insulin, Cardizem)? @ -No Were any procedures done? @ -No Diagnosis/symptom? Acute, or Chronic, or Acute on Chronic? Uncomplicated (without systemic symptoms) or Complicated (systemic symptoms)? @ -Atypical chest pain typical features Side effects of treatment? @ -No Exacerbation, Progression, or Severe Exacerbation? @ -No Poses a threat to life or bodily function? How? (Chest pain, USA, CT, pneumonia, PE, COPD, DKA, ARF, appy, cholecystitis, CVA, Diverticulitis, Homicidal, Suicidal, threat to staff... and all critical care pts) @ -yes (Joaquín Red) Disposition <Fidelina Ibrahim - Last Filed: 07/17/23 09:09> Decision Time: 11:45 <Joaquín Red - Last Filed: 07/17/23 11:45> Clinical Impression: Chest pain Disposition: ADMITTED IP TO THIS HOSP Condition: Fair Referrals: Reid Montano MD [Primary Care Provider] - 1-2 days
[2023-07-17 09:47] LABS: Basophils # (A) 0.1 k/uL (0-0.2); Basophils % (A) 1 %; Eosinophils # (A) 0.2 k/uL (0-0.7); Eosinophils % (A) 3 %; HCT 41.4 % (34.0-46.0); HGB 13.5 gm/dL (11.4-16.0); Lymphocytes # (A) 2.5 k/uL (1.0-4.8); Lymphocytes % (A) 39 %; MCH 31.1 pg (25.0-35.0); MCHC 32.7 g/dL (31.0-37.0); MCV 95.4 fL (80.0-100.0); Mean Platelet Volume 7.6; Monocytes # (A) 0.4 k/uL (0-1.0); Monocytes % (A) 6 %; Neutrophils # (A) 3.1 k/uL (1.3-7.7); Neutrophils % (A) 48 %; Platelet Count 261 k/uL (150-450); RBC 4.34 m/uL (3.80-5.40); RDW 12.8 % (11.5-15.5); WBC 6.4 k/uL (3.8-10.6)
[2023-07-17 09:59] LABS: Partial Thromboplastin Time 23.9 sec (22.0-30.0); Prothrombin Time 10.7 sec (10.0-12.5)
[2023-07-17 10:01] LABS: ALT 17 U/L (4-34); AST 32 U/L (14-36); African American GFR (CKD) >90 (>60 ml/min/1.73 sqM); Alkaline Phosphatase 87 U/L (38-126); Anion Gap 5 mmol/L; Blood Urea Nitrogen 14 mg/dL (7-17); Calcium 8.9 mg/dL (8.4-10.2); Carbon Dioxide 27 mmol/L (22-30); Chloride 107 mmol/L (98-107); Glucose 100 mg/dL (74-99); Non-African American GFR(CKD) >90 (>60 ml/min/1.73 sqM); Potassium 4.2 mmol/L (3.5-5.1); Sodium 139 mmol/L (137-145); Total Bilirubin 0.7 mg/dL (0.2-1.3); Total Protein 6.7 g/dL (6.3-8.2)
--- NOTE | 2023-07-17 11:05 | XR ---
EXAMINATION TYPE: XR chest 2V DATE OF EXAM: 07/17/2023 10:05 AM CLINICAL INDICATION:Female, 68 years old with history of pain; COMPARISON: Chest radiographs from on 02/15/2022. TECHNIQUE: XR chest 2V Frontal and lateral views of the chest. FINDINGS: Lungs/Pleura: There is flattening of the diaphragm with increased lucency of the lungs. No evidence o f pneumothorax, pleural effusion or focal consolidation. Pulmonary vascularity: Unremarkable. Heart/mediastinum: Cardiomediastinal silhouette is unremarkable. Musculoskeletal: No acute osseous pathology. IMPRESSION: 1. No acute cardiopulmonary disease process. 2. COPD changes.
[2023-07-17] MEDS ORDERED: NITROGLYCERIN SL TABS 0.4 MG TAB SUBLINGUAL PRN (11:42)
[2023-07-17] MEDS: ASPIRIN 81 MG PO STA (12:02)
[2023-07-17] MEDS ORDERED: ALBUTEROL NEBULIZED 2.5 MG/3 ML INHALATION PRN (14:10)
[2023-07-17] MEDS ORDERED: ALPRAZolam 0.25 MG TAB PO PRN (14:10)
--- NOTE | 2023-07-17 20:18 | P.HPIM ---
History of Present Illness H&P Date: 07/17/23 Chief Complaint: Burning in the chest This is a pleasant 68-year-old patient who follows with Dr. Montano. Rent And Housing Investigator Dr. Arriaga. Chronic stable medical conditions include asthma, GERD, decreased hearing, hypertension, hyperlipidemia, osteoarthritis, hypothyroid, anxiety depression. baseline reflux intermittently. Patient was here in February 2022. With acute non-Q wave [place]. Cardiac catheterization showed normal coronaries. [place] to be [place] From about 230 this morning. Patient having burning sensation in the chest. No radiation. No dizziness no lightheadedness. Note some tiredness. Has nitroglycerin but decided not to take it as she was not sure this is reflux. Review of systems: GEN.: Tired EYES: None HEENT: None NECK: None RESPIRATORY: None CARDIOVASCULAR: As above GASTROINTESTINAL: Heartburn GENITOURINARY: None MUSCULOSKELETAL: Joint pain LYMPHATICS: None HEMATOLOGICAL: None PSYCHIATRY: None NEUROLOGICAL: None. Past medical history to include: Asthma, GERD, GI bleed, decreased hearing, hypertension, hyperlipidemia, osteoporosis, hypothyroid, anxiety depression,[place]-acute non-Q wave [place] with normal coronaries Social history: No smoking or alcohol. Lives alone. 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 Physical examination: VITAL SIGNS: 98.4, 85, 18, 129/89, 97% room air GENERAL: Thing in bed comfortable EYES: Pupils equal. Conjunctiva normal. HEENT: External appearance of nose and ears normal, oral cavity grossly normal. NECK: JVD not raised; masses not palpable. HEART: First and second heart sounds are normal; no edema. LUNGS: Respiratory rate normal; clear to auscultation. ABDOMEN: Soft, nontender, liver spleen not palpable, no masses palpable. PSYCH: Alert and oriented x3; mood and affect normal. MUSCULOSKELETAL:No Clubbing/cyanosis;muscles-grossly intact. OA. Left forearm swelling. Able to somewhat make a fist. Some local tenderness. NEUROLOGICAL: Cranial nerves grossly intact; no facial asymmetry, power and sensation grossly intact. LYMPHATICS: No lymph nodes palpable in the axilla and neck INVESTIGATIONS, reviewed in the clinical context: July 17, 2023: White count 6.4 globin 13.5 platelets 261 potassium 4.2 BUN 14 creatinine 0.58 Troponin I less than 0.12 x 3 EKG tracing personally reviewed by me-normal sinus rhythm Chest x-ray film personally reviewed by me-unremarkable Assessment and plan: -Anterior chest wall burning sensation. Like a previous presentation of acute non-Q wave [place]. Cardiac catheterization that time showed normal coronaries. It was felt to be[place] Troponins x 3 negative Telemetry. Cardiology consulted -Obesity BMI 36.6 Weight loss measures -Hypothyroid Synthroid 25 g -Primary osteoarthritis Tylenol as needed -Hyperlipidemia Lipitor 40 mg daily at bedtime -GERD PPI -Depression and anxiety not otherwise specified Xanax when necessary, Cymbalta -Full code Care was discussed with the patient. Past Medical History Past Medical History: Asthma, GERD/Reflux, GI Bleed, Hearing Disorder / Deafness, Hyperlipidemia, Hypertension, Musculoskeletal Disorder, Osteoarthritis (OA), Thyroid Disorder Additional Past Medical History / Comment(s): DEAF LT EAR, [place] RT EAR. HTN IN PAST. HAD STEROID INJ X2 IN PAST WK TO LT SIDE OF THIGH - HAS BURNING PAIN, SCHEDULED TO HAVE EMG. History of Any Multi-Drug Resistant Organisms: None Reported Past Surgical History: Ear Surgery, Joint Replacement, Orthopedic Surgery, Tons illectomy Additional Past Surgical History / Comment(s): TOTAL LT KNEE. LT ROTATOR CUFF REPAIR. LT HAND JOINT SURG X2. SINUS SURG, LEFT FEMUR SURGERY, TOTAL RIGHT KNEE Past Anesthesia/Blood Transfusion Reactions: Postoperative Nausea & Vomiting (P ONV) Past Psychological History: Anxiety, Depression, Panic Disorder Additional Psychological History / Comment(s): HX PANIC ATTACK Smoking Status: Never smoker Past Alcohol Use History: None Reported Past Drug Use History: None Reported - Past Family History Brother(s) Family Medical History: Cancer Mother Family Medical History: Deep Vein Thrombosis (DVT) Medications and Allergies Home Medications Medication Instructions Recorded Confirmed Type Albuterol Sulfate [Ventolin HFA] 2 puff INHALATION RT-Q4H PRN 08/10/13 07/17/23 History DULoxetine HCL [Cymbalta] 90 mg PO HS 08/10/13 07/17/23 History Fluticasone Propionate [Flonase] 1 spray EA NOSTRIL DAILY 08/10/13 07/17/23 History Omeprazole [PriLOSEC] 20 mg PO HS 08/10/13 07/17/23 History traZODone HCL [Desyrel] 50 mg PO HS 07/13/15 07/17/23 History Cetirizine HCl [Zyrtec] 5 mg PO HS 08/06/16 07/17/23 History Atorvastatin [Lipitor] 40 mg PO HS 03/27/17 07/17/23 History ALPRAZolam [Xanax] 0.25 mg PO Q8H PRN 02/15/22 07/17/23 History Ascorbic Acid [Vitamin C] 1,000 mg PO BID 02/15/22 07/17/23 History Budesonide [Pulmicort Flexhaler] 1 puff INHALATION RT-DAILY 02/15/22 07/17/23 History Cholecalciferol [Vitamin D3 (25 25 mcg PO BID 02/15/22 07/17/23 History Mcg = 1000 Iu)] Montelukast [Singulair] 10 mg PO DAILY 02/15/22 07/17/23 History Vitamin B Complex 1 cap PO DAILY 02/15/22 07/17/23 History Zinc Gluconate [Zinc] 50 mg PO BID 02/15/22 07/17/23 History flaxseed oiL [[place]-3 Flaxseed Oil] 1,000 mg PO DAILY 02/15/22 07/17/23 History Aspirin 81 mg PO DAILY tab 02/18/22 07/17/23 Rx Nitroglycerin Sl Tabs [Nitrostat] 0.4 mg SUBLINGUAL Q5M PRN #30 tab 02/18/22 07/17/23 Rx Calcium Carbonate [Calcium] 600 mg PO DAILY 07/17/23 07/17/23 History Levothyroxine Sodium [Synthroid] 50 mcg PO DAILY 07/17/23 07/17/23 History Allergies Allergy/AdvReac Type Severity Reaction Status Date / Time naproxen [From Aleve] Allergy Abdominal Verified 07/17/23 12:10 Pain topiramate [From Topamax] Allergy Abdominal Verified 07/17/23 12:10 Pain aspirin AdvReac Severe GI Bleeding Verified 07/17/23 12:10 diphenhydramine AdvReac Severe Wheezing Verified 07/17/23 12:10 [From Benadryl] codeine AdvReac Abdominal Verified 07/17/23 12:10 Pain menthol AdvReac Chest Pain Verified 07/17/23 12:10 NSAIDS (Non-Steroidal AdvReac Abdominal Verified 07/17/23 12:10 Anti-Inflamma Pain Tetracyclines AdvReac Diarrhea Verified 07/17/23 12:10 Physical Exam Vitals: Vital Signs Temp Pulse Pulse Resp BP BP Pulse Ox 07/17/23 17:43 98.4 F 85 18 129/89 97 07/17/23 15:38 97.6 F 87 16 128/79 96 07/17/23 14:39 92 18 149/83 96 07/17/23 10:31 76 18 149/86 97 07/17/23 09:57 68 07/17/23 08:36 98.2 F 95 18 155/75 98 Intake and Output 07/17/23 07/17/23 07/17/23 06:59 14:59 22:59 Other: Weight 90.718 kg 90.718 kg Results CBC & Chem 7: 07/17/23 09:04 07/17/23 09:04 Labs: Abnormal Lab Results - Last 24 Hours (Table) 07/17/23 Range/Units 09:04 Glucose 100 H (74-99) mg/dL Thrombosis Risk Factor Assmnt - Choose All That Apply Any of the Below Risk Factors Present?: Yes Each Factor Represents 1 point: Obesity (BMI >25) Each Risk Factor Represents 2 Points: Age 61-74 years Other congenital or acquired thrombophilia - If yes, enter type in comment: No Thrombosis Risk Factor Assessment Total Risk Factor Score: 3 Thrombosis Risk Factor Assessment Level: Moderate Risk
[2023-07-17] MEDS: LORATADINE 10 MG TAB PO SCH (20:21)
[2023-07-17] MEDS: ATORVASTATIN 40 MG TAB PO SCH (20:21)
[2023-07-17] MEDS: traZODone HCL 50 MG TAB PO SCH (20:21)
[2023-07-17] MEDS: CHOLECALCIFEROL 25 MCG (1000 IU) TABLET PO SCH (20:22)
[2023-07-17] MEDS: ASCORBIC ACID 500 MG TAB PO SCH (20:22)
[2023-07-17] MEDS: DULoxetine HCL 30 MG CAPSULE.DR PO SCH (20:22)
[2023-07-18] MEDS: LEVOTHYROXINE 50 MCG TAB PO SCH (06:24)
[2023-07-18 07:45] VITALS: RESP 16
[2023-07-18] MEDS ORDERED: DOBUTamine DRIP for NUC MED 500 MG in DEXTROSE/WATER 1 250ML.BAG IV PRN (07:58)
[2023-07-18] MEDS ORDERED: DOBUTamine DRIP for NUC MED 500 MG/250 ML BAG IV ONE (08:00)
[2023-07-18] MEDS: FLUTICASONE 50MCG/SPRAY NASAL 16GM EA NOSTRIL SCH (08:39)
--- NOTE | 2023-07-18 08:44 | P.CRDCN ---
History of Present Illness History of present illness: HISTORY OF PRESENT ILLNESS: This is a 68-year-old female with a past medical history significant for hypertension, hyperlipidemia, and obesity. Patient follows in the office with Dr. Hamlin. We have been asked to see the patient in consultation for chest pain. Patient examined at the bedside. Patient states that she woke up around 2:00 in the morning and had chest discomfort. She states it felt like a burning sensation in her chest. She states she was unsure if it was cardiac in origin or heartburn. She states that her symptoms did feel similar to when she was in the hospital last year and underwent cardiac catheterization. At the time examination the patient denies any chest pain or pressure. The patient does report that she uses a walker to ambulate as she had has frequent falls. DIAGNOSTICS: - EKG reveals sinus mechanism with no signs of acute ischemia - Chest xray negative for acute process. - Laboratory data: Troponin negative x 3 - Current home cardiac medications include aspirin 81 mg daily, Lipitor 40 mg at night - Most recent echocardiogram obtained in February 2022 reveals ejection fraction 55 to 60%, mild MR, mild TR - Cardiac catheterization history: February 2022 revealing normal coronary arteries REVIEW OF SYSTEMS: At the time of my exam: CONSTITUTIONAL: Denies fever or chills. HEENT: Denies blurred vision, vision changes, or eye pain. Denies hemoptysis CARDIOVASCULAR: Denies chest pain. Denies orthopnea. Denies PND. Denies palpitations RESPIRATORY: Denies shortness of breath. GASTROINTESTINAL: Denies abdominal pain. Denies nausea or vomiting. HEMATOLOGIC: Denies bleeding disorders. GENITOURINARY: Denies any blood in urine. SKIN: Denies pruitis. Denies rash. PHYSICAL EXAM: VITAL SIGNS: Reviewed. GENERAL: Well-developed in no acute distress. HEENT: Head is normocephalic. Pupils are equal, round. Sclerae anicteric. Mucous membranes of the mouth are moist. Neck supple. No JVD or thyromegaly LUNGS: Respirations even and unlabored. Lungs essentially clear to auscultation bilaterally. HEART: Regular rate and rhythm. S1 and S2 heard. ABDOMEN: Soft. Nondistended. Nontender. EXTREMITIES: Normal range of motion. No clubbing or cyanosis. Peripheral pulses intact. No lower extremity edema NEUROLOGIC: Awake and alert. Oriented x 3. ASSESSMENT: Chest pain, troponin negative x 3 Hypertension Hyperlipidemia Normal coronary arteries, per cardiac catheterization February 2022 PLAN: An acute coronary but has been ruled out Obtain 2D echo to assess cardiac structure and function Resume home cardiac medications Patient to undergo dobutamine stress test today. If negative, she may be discharged home from a cardiac standpoint Nurse practitioner note has been reviewed by physician. Signing provider agrees with the documented findings, assessment, and plan of care documented by ROLLING MACHINE OPERATOR AUTOMATIC as a scribe. 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 HTN IN PAST. HAD STEROID INJ X2 IN PAST WK TO LT SIDE OF THIGH - HAS BURNING PAIN, SCHEDULED TO HAVE EMG. History of Any Multi-Drug Resistant Organisms: None Reported Past Surgical History: Ear Surgery, Joint Replacement, Orthopedic Surgery, Tonsillectomy Additional Past Surgical History / Comment(s): TOTAL LT KNEE. LT ROTATOR CUFF REPAIR. LT HAND JOINT SURG X2. SINUS SURG, LEFT FEMUR SURGERY, TOTAL RIGHT KNEE Past Anesthesia/Blood Transfusion Reactions: Postoperative Nausea & Vomiting (PONV) Past Psychological History: Anxiety, Depression, Panic Disorder Additional Psychological History / Comment(s): HX PANIC ATTACK Smoking Status: Never smoker Past Alcohol Use History: None Reported Past Drug Use History: None Reported - Past Family History Brother(s) Family Medical History: Cancer Mother Family Medical History: Deep Vein Thrombosis (DVT) Medications and Allergies Home Medications Medication Instructions Recorded Confirmed Type Albuterol Sulfate [Ventolin HFA] 2 puff INHALATION RT-Q4H PRN 08/10/13 07/17/23 History DULoxetine HCL [Cymbalta] 90 mg PO HS 08/10/13 07/17/23 History Fluticasone Propionate [Flonase] 1 spray EA NOSTRIL DAILY 08/10/13 07/17/23 History Omeprazole [PriLOSEC] 20 mg PO HS 08/10/13 07/17/23 History traZODone HCL [Desyrel] 50 mg PO HS 07/13/15 07/17/23 History Cetirizine HCl [Zyrtec] 5 mg PO HS 08/06/16 07/17/23 History Atorvastatin [Lipitor] 40 mg PO HS 03/27/17 07/17/23 History ALPRAZolam [Xanax] 0.25 mg PO Q8H PRN 02/15/22 07/17/23 History Ascorbic Acid [Vitamin C] 1,000 mg PO BID 02/15/22 07/17/23 History Budesonide [Pulmicort Flexhaler] 1 puff INHALATION RT-DAILY 02/15/22 07/17/23 History Cholecalciferol [Vitamin D3 (25 25 mcg PO BID 02/15/22 07/17/23 History Mcg = 1000 Iu)] Montelukast [Singulair] 10 mg PO DAILY 02/15/22 07/17/23 History Vitamin B Complex 1 cap PO DAILY 02/15/22 07/17/23 History Zinc Gluconate [Zinc] 50 mg PO BID 02/15/22 07/17/23 History flaxseed oiL [[place]-3 Flaxseed Oil] 1,000 mg PO DAILY 02/15/22 07/17/23 History Aspirin 81 mg PO DAILY tab 02/18/22 07/17/23 Rx Nitroglycerin Sl Tabs [Nitrostat] 0.4 mg SUBLINGUAL Q5M PRN #30 tab 02/18/22 07/17/23 Rx Calcium Carbonate [Calcium] 600 mg PO DAILY 07/17/23 07/17/23 History Levothyroxine Sodium [Synthroid] 50 mcg PO DAILY 07/17/23 07/17/23 History Allergies Allergy/AdvReac Type Severity Reaction Status Date / Time naproxen [From Aleve] Allergy Abdominal Verified 07/17/23 12:10 Pain topiramate [From Topamax] Allergy Abdominal Verified 07/17/23 12:10 Pain aspirin AdvReac Severe GI Bleeding Verified 07/17/23 12:10 diphenhydramine AdvReac Severe Wheezing Verified 07/17/23 12:10 [From Benadryl] codeine AdvReac Abdominal Verified 07/17/23 12:10 Pain menthol AdvReac Chest Pain Verified 07/17/23 12:10 NSAIDS (Non-Steroidal AdvReac Abdominal Verified 07/17/23 12:10 Anti-Inflamma Pain Tetracyclines AdvReac Diarrhea Verified 07/17/23 12:10 Physical Exam Vitals: Vital Signs Temp Pulse Pulse Resp BP BP BP 07/18/23 07:00 98 F 76 16 130/78 07/18/23 02:12 97.7 F 78 18 124/79 07/17/23 22:09 98.4 F 79 16 125/74 07/17/23 17:43 98.4 F 85 18 129/89 07/17/23 15:38 97.6 F 87 16 128/79 07/17/23 14:39 92 18 149/83 07/17/23 10:31 76 18 149/86 07/17/23 09:57 68 Pulse Ox 07/18/23 07:00 96 07/18/23 02:12 96 07/17/23 22:09 97 07/17/23 17:43 97 07/17/23 15:38 96 07/17/23 14:39 96 07/17/23 10:31 97 07/17/23 09:57 Intake and Output 07/17/23 07/18/23 07/18/23 22:59 06:59 14:59 Other: Weight 90.718 kg Results 07/17/23 09:04 07/17/23 09:04 Cardiac Enzymes 07/17/23 07/17/23 07/17/23 Range/Units 09:04 09:04 12:56 AST 32 (14-36) U/L Troponin I <0.012 <0.012 (0.000-0.034) ng/mL 07/17/23 Range/Units 16:09 AST (14-36) U/L Troponin I <0.012 (0.000-0.034) ng/mL Coagulation 07/17/23 Range/Units 09:04 PT 10.7 (10.0-12.5) sec APTT 23.9 (22.0-30.0) sec CBC 07/17/23 Range/Units 09:04 WBC 6.4 (3.8-10.6) k/uL RBC 4.34 (3.80-5.40) m/uL Hgb 13.5 (11.4-16.0) gm/dL Hct 41.4 (34.0-46.0) % Plt Count 261 (150-450) k/uL Comprehensive Metabolic Panel 07/17/23 Range/Units 09:04 Sodium 139 (137-145) mmol/L Potassium 4.2 (3.5-5.1) mmol/L Chloride 107 (98-107) mmol/L Carbon Dioxide 27 (22-30) mmol/L BUN 14 (7-17) mg/dL Creatinine 0.58 (0.52-1.04) mg/dL Glucose 100 H (74-99) mg/dL Calcium 8.9 (8.4-10.2) mg/dL AST 32 (14-36) U/L ALT 17 (4-34) U/L Alkaline Phosphatase 87 (38-126) U/L Total Protein 6.7 (6.3-8.2) g/dL Albumin 4.0 (3.5-5.0) g/dL Current Medications Generic Name Dose Route Start Last Admin Trade Name Freq PRN Reason Stop Dose Admin Albuterol Sulfate 2.5 mg 07/17/23 14:10 Albuterol Nebulized 2.5 Mg/3 Ml INHALATION RT-Q4H PRN Shortness Of Breath Alprazolam 0.25 mg 07/17/23 14:10 Alprazolam 0.25 Mg Tab PO Q8H PRN Anxiety/Insomnia Ascorbic Acid 1,000 mg 07/17/23 21:00 07/17/23 20:22 Ascorbic Acid 500 Mg Tab PO 1,000 mg BID FARIBA Administration Aspirin 81 mg 07/18/23 09:00 Aspirin 81 Mg PO DAILY FARIBA Atorvastatin Calcium 40 mg 07/17/23 21:00 07/17/23 20:21 Atorvastatin 40 Mg Tab PO 40 mg HS FARIBA Administration Calcium Carbonate/Glycine 500 mg 07/18/23 09:00 Calcium Carbonate 500 Mg Chewable PO DAILY FARIBA Cholecalciferol 25 mcg 07/17/23 21:00 07/17/23 20:22 Cholecalciferol 25 Mcg (1000 Iu) Tablet PO 25 mcg BID FARIBA Administration Duloxetine HCl 90 mg 07/17/23 21:00 07/17/23 20:22 Duloxetine Hcl 30 Mg Capsule.Dr PO 90 mg HS FARIBA Administration Fluticasone Propionate 1 puff 07/18/23 08:00 Fluticasone 44 Mcg Inhaler INHALATION RT-BID FARIBA Fluticasone Propionate 1 spray 07/18/23 09:00 07/18/23 08:39 Fluticasone 50mcg/[place] Nasal 16gm EA NOSTRIL 1 spray DAILY FARIBA Administration Dobutamine HCl/Dextrose 500 mg 250 mls @ 27.215 mls/hr 07/18/23 07:58 / IV Solution IV 07/18/23 11:59 .Q9H12M PRN Per Protocol Protocol 10 MCG/KG/MIN Levothyroxine Sodium 50 mcg 07/18/23 06:30 07/18/23 06:24 Levothyroxine 50 Mcg Tab PO 50 mcg DAILY@0630 FARIBA Administration Loratadine 5 mg 07/17/23 21:00 07/17/23 20:21 Loratadine 10 Mg Tab PO 5 mg HS FARIBA Administration Nitroglycerin 0.4 mg 07/17/23 11:42 Nitroglycerin Sl Tabs 0.4 Mg Tab SUBLINGUAL Q5M PRN Chest Pain Trazodone HCl 50 mg 07/17/23 21:00 07/17/23 20:21 Trazodone Hcl 50 Mg Tab PO 50 mg HS FARIBA Administration Intake and Output 07/17/23 07/18/23 07/18/23 22:59 06:59 14:59 Other: Weight 90.718 kg 07/17/23 09:04 07/17/23 09:04
[2023-07-18] MEDS: FLUTICASONE 44 MCG INHALER INHALATION SCH (08:59)
[2023-07-18] MEDS ORDERED: ASPIRIN 325 MG TAB PO SCH (09:00)
[2023-07-18 10:31] LABS: LDL Cholesterol,Calculated 107.2 mg/dL (0.0-131.0); VLDL Calculation 18.64 mg/dL (5.00-40.00)
--- NOTE | 2023-07-18 12:11 | CA ---
Transthoracic Echo Report Name: Humaira Garza Age: 68 Gender: F : 1955 Exam Date: 07/18/2023 11:49 Exam Location: [facility] Ht (in): 62 Wt (lb): 200 Ordering Physician: Evelyn Fortune Attending/Referring Phys: [id number], Tong Crime Scene Investigator Rupinder Flores RDCS Procedure CPT: Indications: LV function, CP Cardiac Hx: Technical Quality: Good Contrast 1: Total Dose (mL): Contrast 2: Total Dose (mL): MEASUREMENTS (Male / Female) Normal Values 2D ECHO LV Diastolic Diameter PLAX 4.3 cm 4.2 - 5.9 / 3.9 - 5.3 cm LV Systolic Diameter PLAX 3.1 cm IVS Diastolic Thickness 0.8 cm 0.6 - 1.0 / 0.6 - 0.9 cm LVPW Diastolic Thickness 0.9 cm 0.6 - 1.0 / 0.6 - 0.9 cm LV Relative Wall Thickness 0.4 RV Internal Dim ED PLAX 2.1 cm LA Systolic Diameter LX 3.2 cm 3.0 - 4.0 / 2.7 - 3.8 cm LV Diastolic Volume MOD 4C 84.5 cm??? LV Systolic Volume MOD 4C 42.8 cm??? LV Ejection Fraction MOD 4C 49.3 % LV Cardiac Index MOD 4C 1699.5 cm???/min???m??? LV Diastolic Length 4C 7.5 cm LV Systolic Length 4C 6.0 cm LV Diastolic Volume MOD 2C 90.2 cm??? LV Systolic Volume MOD 2C 41.3 cm??? LV Ejection Fraction MOD 2C 54.2 % LV Cardiac Index MOD 2C 1991.1 cm???/min???m??? LV Diastolic Length 2C 7.4 cm LV Systolic Length 2C 5.8 cm LA Volume 42.4 cm??? 18 - 58 / 22 - 52 cm??? LA Volume Index 20.8 cm???/m??? 16 - 28 cm???/m??? M-MODE Aortic Root Diameter MM 2.6 cm AV Cusp Separation MM 2.0 cm DOPPLER AV Peak Velocity 121.5 cm/s AV Peak Gradient 5.9 mmHg MV Area PHT 2.3 cm??? Mitral E Point Velocity 54.5 cm/s Mitral A Point Velocity 87.4 cm/s Mitral E to A Ratio 0.6 MV Deceleration Time 326.3 ms FINDINGS Left Ventricle Left ventricular ejection fraction is estimated at 55-60 %. Left ventricular cavity size normal. Left ventricular wall thickness normal. Normal left ventricular wall motion. Right Ventricle Normal right ventricular size and function. Unable to estimate the right ventricular systolic pressure. Right Atrium Normal right atrial size. No right atrial thrombus or mass seen. Left Atrium Normal left atrial size. No left atrial thrombus or mass present. Mitral Valve Mitral valve thickened. Mild mitral annular calcification. Trace to mild mitral regurgitation. Aortic Valve Trileaflet aortic valve. No aortic valve stenosis or regurgitation. Tricuspid Valve Structurally normal tricuspid valve. No tricuspid stenosis, regurgitation or prolapse. Pulmonic Valve Structurally normal pulmonic valve. Mild pulmonic regurgitation. Pericardium No pericardial or pleural effusion. Aorta Normal size aortic root and proximal ascending aorta. CONCLUSIONS Normal LV function Previewed by: Dr. Mitul Crawford MD (Electronically Signed) Final Date: 18 July 2023 12:10
[2023-07-18] MEDS: CALCIUM CARBONATE 500 MG CHEWABLE PO SCH (12:57)
[2023-07-18] MEDS: ASPIRIN 81 MG PO SCH (12:57)
[2023-07-18 14:59] VITALS: BP 153/82; PULSE 103; TEMP 98.3
--- NOTE | 2023-07-18 17:36 | CA ---
Dobutamine Stress Echocardiogram Report Humaira Garza Age: 68 Gender: F : 1955 Exam Date: 07/18/2023 12:00 Exam Location: [facility] Ordering Physician: Evelyn Fortune Referring Physician: [id number] Spanisher: JOSE, Technologist: Ht (in): 62 Wt (lb): 200 Procedure CPT: Indication: CP ICD-9 Codes: Rhythm: Patient History: Chest pain and family history of heart disease. Cardiac Medications: Medications in past 24 hours: Contrast: Total Dose (mL): Stress Results Protocol: Dobutamine Peak Dose (???g/kg/min): 40 Duration (min:sec): Atropine:(mg) Target HR: 130 Double Product: 19654 Resting HR: 84 Resting BP: 149 / 72 Peak HR: 128 Peak BP: 201 / 56 Max Predicted HR: 153 84 % Max Predicted HR Stress Summary: BP Response: Reason for Termination: Exceeded target heart rate (85% max predicted) Cardiac Symptoms: Test terminated after reaching target heart rate (85% max predicted) ECG Analysis Resting EKG: Normal sinus rhythm normal axis normal intervals Stress EKG: Patient was given intravenous dobutamine or a period of 12 minutes as per protocol achieving 85% of predicted maximal heart rate without chest pain. At peak exercise there was [address] segment depression in inferolateral leads Arrhythmia: Echo Analysis Base Echo Analysis: Normal left ventricular size wall motion systolic function Low Echo Anaylsis: Normal Peak Echo Analysis: Normal hyperdynamic response Recovery Echo: Normal MEASUREMENTS (Male/Female) Normal Values CONCLUSIONS Abnormal stress test by EKG criteria Normal stress echo Dr. Mitul Crawford MD (Electronically Signed) Final Date: 18 July 2023 17:36
--- NOTE | 2023-07-18 18:26 | P.DS ---
Providers Date of admission: 07/17/23 11:42 Expected date of discharge: 07/18/23 Attending physician: Mac Austin [facility] Course: Chief Complaint: Burning in the chest This is a pleasant 68-year-old patient who follows with Dr. Montano. Building Rental Superintendent Dr. Arriaga. Chronic stable medical conditions include asthma, GERD, decreased hearing, hypertension, hyperlipidemia, osteoarthritis, hypothyroid, anxiety depression. baseline reflux intermittently. Patient was here in February 2022. With acute non-Q wave IN. Cardiac catheterization showed normal coronaries. [place] to be MIN[place]A From about 230 this morning. Patient having burning sensation in the chest. No radiation. No dizziness no lightheadedness. Note some tiredness. Has nitroglycerin but decided not to take it as she was not sure this is reflux. July 17: Nurse called me this afternoon that cardiology has cleared the patient. Unremarkable 2D echo and a normal stress echocardiogram. Patient is discharged. Patient to follow-up with GI for possible EGD. She already is on a PPI. Past medical history to include: Asthma, GERD, GI bleed, decreased hearing, hypertension, hyperlipidemia, osteoporosis, hypothyroid, anxiety depression,MIN[place]A-acute non-Q wave IN with normal coronaries Social history: No smoking or alcohol. Lives alone. 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 Physical examination: VITAL SIGNS: 98, 76, 16, 130/78, 96% room air GENERAL: Comfortable EYES: Pupils equal. Conjunctiva normal. HEENT: External appearance of nose and ears normal, oral cavity grossly normal. NECK: JVD not raised; masses not palpable. HEART: First and second heart sounds are normal; no edema. LUNGS: Respiratory rate normal; clear to auscultation. ABDOMEN: Soft, nontender, liver spleen not palpable, no masses palpable. PSYCH: Alert and oriented x3; mood and affect normal. MUSCULOSKELETAL:No Clubbing/cyanosis;muscles-grossly intact. OA. Left forearm swelling. Able to somewhat make a fist. Some local tenderness. INVESTIGATIONS, reviewed in the clinical context: Dobutamine stress echocardiogram: Negative 2D echocardiogram: EF 55 to 60% July 17, 2023: White count 6.4 globin 13.5 platelets 261 potassium 4.2 BUN 14 creatinine 0.58 Troponin I less than 0.12 x 3 EKG tracing personally reviewed by me-normal sinus rhythm Chest x-ray film personally reviewed by me-unremarkable Assessment and plan: -Anterior chest wall burning sensation. [Like a previous presentation of acute non-Q wave IN. Cardiac catheterization that time showed normal coronaries. It was felt to beMINOCA]: Possible GERD Troponins x 3 negative 2D echocardiogram and stress echocardiogram negative dobutamine Follow-up with cardiology -Obesity BMI 36.6 Weight loss measures -Hypothyroid Synthroid 25 g -Primary osteoarthritis Tylenol as needed -Hyperlipidemia Lipitor 40 mg daily at bedtime -GERD PPI Follow-up with Dr. 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 HTN IN PAST. HAD STEROID INJ X2 IN PAST WK TO LT SIDE OF THIGH - HAS BURNING PAIN, SCHEDULED TO HAVE EMG. History of Any Multi-Drug Resistant Organisms: None Reported Past Surgical History: Ear Surgery, Joint Replacement, Orthopedic Surgery, Tonsillectomy Additional Past Surgical History / Comment(s): TOTAL LT KNEE. LT ROTATOR CUFF REPAIR. LT HAND JOINT SURG X2. SINUS SURG, LEFT FEMUR SURGERY, TOTAL RIGHT KNEE Past Anesthesia/Blood Transfusion Reactions: Postoperative Nausea & Vomiting (PONV) Past Psychological History: Anxiety, Depression, Panic Disorder Additional Psychological History / Comment(s): HX PANIC ATTACK Smoking Status: Never smoker Past Alcohol Use History: None Reported Past Drug Use History: None Reported Plan - Discharge Summary Discharge Rx Participant: No New Discharge Prescriptions: Continue Omeprazole [PriLOSEC] 20 mg PO HS Fluticasone Propionate [Flonase] 1 spray EA NOSTRIL DAILY DULoxetine HCL [Cymbalta] 90 mg PO HS Albuterol Sulfate [Ventolin HFA] 2 puff INHALATION RT-Q4H PRN PRN Reason: Shortness Of Breath traZODone HCL [Desyrel] 50 mg PO HS Cetirizine HCl [Zyrtec] 5 mg PO HS Atorvastatin [Lipitor] 40 mg PO HS Zinc Gluconate [Zinc] 50 mg PO BID Vitamin B Complex 1 cap PO DAILY Cholecalciferol [Vitamin D3 (25 Mcg = 1000 Iu)] 25 mcg PO BID Ascorbic Acid [Vitamin C] 1,000 mg PO BID flaxseed oiL [[place]-3 Flaxseed Oil] 1,000 mg PO DAILY Budesonide [Pulmicort Flexhaler] 1 puff INHALATION RT-DAILY Aspirin 81 mg PO DAILY tab Levothyroxine Sodium [Synthroid] 50 mcg PO DAILY Montelukast [Singulair] 10 mg PO DAILY ALPRAZolam [Xanax] 0.25 mg PO Q8H PRN PRN Reason: Anxiety/Insomnia Nitroglycerin Sl Tabs [Nitrostat] 0.4 mg SUBLINGUAL Q5M PRN #30 tab PRN Reason: Chest Pain Calcium Carbonate [Calcium] 600 mg PO DAILY Discharge Medication List Albuterol Sulfate [Ventolin HFA] 2 puff INHALATION RT-Q4H PRN 08/10/13 [History] DULoxetine HCL [Cymbalta] 90 mg PO HS 08/10/13 [History] Fluticasone Propionate [Flonase] 1 spray EA NOSTRIL DAILY 08/10/13 [History] Omeprazole [PriLOSEC] 20 mg PO HS 08/10/13 [History] traZODone HCL [Desyrel] 50 mg PO HS 07/13/15 [History] Cetirizine HCl [Zyrtec] 5 mg PO HS 08/06/16 [History] Atorvastatin [Lipitor] 40 mg PO HS 03/27/17 [History] ALPRAZolam [Xanax] 0.25 mg PO Q8H PRN 02/15/22 [History] Ascorbic Acid [Vitamin C] 1,000 mg PO BID 02/15/22 [History] Budesonide [Pulmicort Flexhaler] 1 puff INHALATION RT-DAILY 02/15/22 [History] Cholecalciferol [Vitamin D3 (25 Mcg = 1000 Iu)] 25 mcg PO BID 02/15/22 [History] Montelukast [Singulair] 10 mg PO DAILY 02/15/22 [History] Vitamin B Complex 1 cap PO DAILY 02/15/22 [History] Zinc Gluconate [Zinc] 50 mg PO BID 02/15/22 [History] flaxseed oiL [[place]-3 Flaxseed Oil] 1,000 mg PO DAILY 02/15/22 [History] Aspirin 81 mg PO DAILY tab 02/18/22 [Rx] Nitroglycerin Sl Tabs [Nitrostat] 0.4 mg SUBLINGUAL Q5M PRN #30 tab 02/18/22 [Rx] Calcium Carbonate [Calcium] 600 mg PO DAILY 07/17/23 [History] Levothyroxine Sodium [Synthroid] 50 mcg PO DAILY 07/17/23 [History] Follow up Appointment(s)/Referral(s): own-cardiology, [Other] - 3 Weeks Carlos Hamlin MD [STAFF PHYSICIAN] - 07/25/23 10:30 am (Appointment is at main clinic.) Reid Montano MD [Primary Care Provider] - 1-2 days Maddi Crawford MD [STAFF PHYSICIAN] - 08/06/23 9:00 am (egd ) Discharge Disposition: HOME SELF-CARE
== END 2023-07-18 15:45 | disposition home or self-care (01) ==
LOC: EC 08:34 → 6NMEDSUR 11:42
PROVIDERS: ADMIT Hospitalist; ATTEND Hospitalist
DX: R07.89 Other chest pain (principal); K21.9 Gastro-esophageal reflux disease without esophagitis; I25.10 Atherosclerotic heart disease of native coronary artery without angina pectoris; I10 Essential (primary) hypertension; E03.9 Hypothyroidism, unspecified; M19.91 Primary osteoarthritis, unspecified site; E78.5 Hyperlipidemia, unspecified; I08.1 Rheumatic disorders of both mitral and tricuspid valves; J45.909 Unspecified asthma, uncomplicated; E66.9 Obesity, unspecified; Z68.36 Body mass index [BMI] 36.0-36.9, adult; H91.93 Unspecified hearing loss, bilateral; F32.A Depression, unspecified; F41.9 Anxiety disorder, unspecified; R29.6 Repeated falls; I25.2 Old myocardial infarction; Z79.890 Hormone replacement therapy; Z79.51 Long term (current) use of inhaled steroids; Z79.82 Long term (current) use of aspirin; Z79.899 Other long term (current) drug therapy; Z88.6 Allergy status to analgesic agent; Z88.1 Allergy status to other antibiotic agents; Z88.5 Allergy status to narcotic agent; Z88.8 Allergy status to other drugs, medicaments and biological substances
CPT/HCPCS: 99285; 36415; 94640; 93005 ×2; 93306; 93351; 80061; 80053; 84484; 85025; 85610; 85730; 71046; G0378 ×2; J1250

== ENCOUNTER 2023-12-18 09:22 | Observation (INO) | payer MEDICARE, OTHER ==
[2023-12-18] MEDS: PANTOPRAZOLE 40 MG/10 ML VIAL IVP STA (09:50)
[2023-12-18 10:00] LABS: Basophils % (A) 1 %; Eosinophils # (A) 0.2 k/uL (0-0.7); Eosinophils % (A) 3 %; HCT 42.2 % (34.0-46.0); HGB 14.1 gm/dL (11.4-16.0); Lymphocytes # (A) 2.1 k/uL (1.0-4.8); Lymphocytes % (A) 29 %; MCH 31.9 pg (25.0-35.0); MCHC 33.3 g/dL (31.0-37.0); MCV 95.8 fL (80.0-100.0); Mean Platelet Volume 7.6; Monocytes # (A) 0.4 k/uL (0-1.0); Monocytes % (A) 6 %; Neutrophils # (A) 4.2 k/uL (1.3-7.7); Neutrophils % (A) 60 %; Platelet Count 246 k/uL (150-450); RBC 4.41 m/uL (3.80-5.40); RDW 12.4 % (11.5-15.5)
--- NOTE | 2023-12-18 10:05 | ED ---
General Adult HPI - General Chief complaint: Chest Pain Stated complaint: Heartburn Time Seen by Provider: 12/18/23 09:36 Source: patient, RN notes reviewed, old records reviewed Mode of arrival: ambulatory Limitations: no limitations - History of Present Illness Initial comments: 68-year-old female presenting for evaluation of heartburn, lower chest and epigastric pain patient symptoms have been present for the past 3 days. She had contacted her primary care provider today who indicated that she should present to the emergency department to ensure that this was not related to her heart. Patient describes a burning lower chest and epigastric sensation. No shortness of breath. No vomiting. No diaphoresis. No prior history of coronary artery disease. - Related Data Home Medications Medication Instructions Recorded Confirmed Albuterol Sulfate [Ventolin HFA] 2 puff INHALATION RT-Q4H PRN 08/10/13 07/17/23 DULoxetine HCL [Cymbalta] 90 mg PO HS 08/10/13 07/17/23 Fluticasone Propionate [Flonase] 1 spray EA NOSTRIL DAILY 08/10/13 07/17/23 Omeprazole [PriLOSEC] 20 mg PO HS 08/10/13 07/17/23 traZODone HCL [Desyrel] 50 mg PO HS 07/13/15 07/17/23 Cetirizine HCl [Zyrtec] 5 mg PO HS 08/06/16 07/17/23 Atorvastatin [Lipitor] 40 mg PO HS 03/27/17 07/17/23 ALPRAZolam [Xanax] 0.25 mg PO Q8H PRN 02/15/22 07/17/23 Ascorbic Acid [Vitamin C] 1,000 mg PO BID 02/15/22 07/17/23 Budesonide [Pulmicort Flexhaler] 1 puff INHALATION RT-DAILY 02/15/22 07/17/23 Cholecalciferol [Vitamin D3 (25 25 mcg PO BID 02/15/22 07/17/23 Mcg = 1000 Iu)] Montelukast [Singulair] 10 mg PO DAILY 02/15/22 07/17/23 Vitamin B Complex 1 cap PO DAILY 02/15/22 07/17/23 Zinc Gluconate [Zinc] 50 mg PO BID 02/15/22 07/17/23 flaxseed oiL [[place]-3 Flaxseed Oil] 1,000 mg PO DAILY 02/15/22 07/17/23 Calcium Carbonate [Calcium] 600 mg PO DAILY 07/17/23 07/17/23 Levothyroxine Sodium [Synthroid] 50 mcg PO DAILY 07/17/23 07/17/23 Previous Rx's Medication Instructions Recorded Aspirin 81 mg PO DAILY tab 02/18/22 Nitroglycerin Sl Tabs [Nitrostat] 0.4 mg SUBLINGUAL Q5M PRN #30 tab 02/18/22 Allergies Allergy/AdvReac Type Severity Reaction Status Date / Time naproxen [From Aleve] Allergy Abdominal Verified 12/18/23 09:30 Pain topiramate [From Topamax] Allergy Abdominal Verified 12/18/23 09:30 Pain aspirin AdvReac Severe GI Bleeding Verified 12/18/23 09:30 diphenhydramine AdvReac Severe Wheezing Verified 12/18/23 09:30 [From Benadryl] codeine AdvReac Abdominal Verified 12/18/23 09:30 Pain menthol AdvReac Chest Pain Verified 12/18/23 09:30 NSAIDS (Non-Steroidal AdvReac Abdominal Verified 12/18/23 09:30 Anti-Inflamma Pain Tetracyclines AdvReac Diarrhea Verified 12/18/23 09:30 Review of Systems ROS Statement: Those systems with pertinent positive or pertinent negative responses have been documented in the HPI. ROS Other: All systems not noted in ROS Statement are negative. Past Medical History Past Medical History: Asthma, GERD/Reflux, GI Bleed, Hearing Disorder / Deafn ess, Hyperlipidemia, Hypertension, Musculoskeletal Disorder, Osteoarthritis (OA), Thyroid Disorder Additional Past Medical History / Comment(s): DEAF LT EAR, [place] RT EAR. HTN IN PAST. HAD STEROID INJ X2 IN PAST WK TO LT SIDE OF THIGH - HAS BURNING PAIN, SCHEDULED TO HAVE EMG., "small vessel disease" History of Any Multi-Drug Resistant Organisms: None Reported Past Surgical History: Ear Surgery, Joint Replacement, Orthopedic Surgery, Tonsillectomy Additional Past Surgical History / Comment(s): TOTAL LT KNEE. LT ROTATOR CUFF REPAIR. LT HAND JOINT SURG X2. SINUS SURG, LEFT FEMUR SURGERY, TOTAL RIGHT KNEE Past Anesthesia/Blood Transfusion Reactions: Postoperative Nausea & Vomiting (PONV) Past Psychological History: Anxiety, Depression, Panic Disorder Smoking Status: Never smoker Past Alcohol Use History: None Reported Past Drug Use History: None Reported - Past Family History Brother(s) Family Medical History: Cancer Mother Family Medical History: Deep Vein Thrombosis (DVT) General Exam Limitations: no limitations General appearance: alert, in no apparent distress Head exam: Present: atraumatic, normocephalic Eye exam: Present: normal appearance, PERRL ENT exam: Present: normal exam Neck exam: Present: normal inspection Respiratory exam: Present: normal lung sounds bilaterally. Absent: respiratory distress, wheezes Cardiovascular Exam: Present: regular rate, normal rhythm GI/Abdominal exam: Present: soft. Absent: distended, tenderness, guarding Extremities exam: Present: normal inspection, normal capillary refill Neurological exam: Present: alert, oriented X3, CN II-XII intact. Absent: motor sensory deficit Skin exam: Present: warm, dry, intact. Absent: cyanosis, diaphoretic Course Vital Signs 12/18/23 12/18/23 12/18/23 09:30 09:43 09:55 Temperature 98.1 F 98.2 F Pulse Rate 105 H 85 Pulse Rate [ 90 Philosophy Faculty ] Respiratory 20 18 Rate Blood Pressure 162/83 152/76 O2 Sat by Pulse 97 97 Oximetry Medical Decision Making - Medical Decision Making Was pt. sent in by a medical professional or institution (, PA, LONG WALL SHEAR OPERATOR, urgent care, hospital, or prison...) When possible be specific @ -No Did you speak to anyone other than the patient for history (EMS, parent, family, police, friend...)? What history was obtained from this source @ -No Did you review nursing and triage notes (agree or disagree)? Why? @ -I reviewed and agree with nursing and triage notes Were old charts reviewed (outside hosp., previous admission, EMS record, old EKG, old radiological studies, urgent care reports/EKG's, prison records)? Report findings @ -No old charts were reviewed Differential Chest Pain: Stable Angina, Unstable Angina, STEMI, NSTEMI Aortic Dissection, Pneumothorax, Musculoskeletal, Esophageal Spasm GERD, Cholecystitis, Pancreatitis, Zoster, this is not meant to be an all-inclusive list. EKG interpreted by me (3pts min.). @Sinus rhythm, rate of 90, HI interval 142, QRS duration 90, QTc [address] segment elevation. X-rays interpreted by me (1pt min.). @ -Chest x-ray negative for acute cardiopulmonary findings CT interpreted by me (1pt min.). @ -None done U/S interpreted by me (1pt. min.). @ -None done What testing was considered but not performed or refused? (CT, X-rays, U/S, labs)? Why? @ -None What meds were considered but not given or refused? Why? @ -None Did you discuss the management of the patient with other professionals (professionals i.e. , PA, LONG WALL SHEAR OPERATOR, lab, RT, psych nurse, social media project manager, machine specialist, teacher, state highway police officer, catalytic case operator)? Give summary @ -Dr. Austin Was smoking cessation discussed for >3mins.? @ -No Was critical care preformed (if so, how long)? @ -No Were there social determinants of health that impacted care today? How? (Homeles sness, low income, unemployed, alcoholism, drug addiction, transportation, low edu. Level, literacy, decrease access to med. care, alf, rehab)? @ -No Was there de-escalation of care discussed even if they declined (Discuss DNR or withdrawal of care, Hospice)? DNR status @ -No What co-morbidities impacted this encounter? (DM, HTN, Smoking, COPD, CAD, Cancer, CVA, ARF, Chemo, Hep., AIDS, mental health diagnosis, sleep apnea, morbid obesity)? @ -None Was patient admitted / discharged? Hospital course, mention meds given and route, prescriptions, significant lab abnormalities, going to OR and other pertinent info. @ -[68-year-old female presenting with lower chest pain described as heartburn. EKG is sinus rhythm without ST segment elevation or definitive signs of ischemia. Chest x-ray is negative for acute cardiopulmonary findings. Normal CBC, normal CMP, negative initial troponin. Patient will be observed overnight for serial cardiac enzymes, telemetry, cardiology consultation. Undiagnosed new problem with uncertain prognosis? @ -No Drug Therapy requiring intensive monitoring for toxicity (Heparin, Nitro, Insulin, Cardizem)? @ -No Were any procedures done? @ -No Diagnosis/symptom? @ -Chest pain rule out Acute, or Chronic, or Acute on Chronic? @ -Acute Uncomplicated (without systemic symptoms) or Complicated (systemic symptoms)? @ -Default Side effects of treatment? @ -No Exacerbation, Progression, or Severe Exacerbation? @ -No Poses a threat to life or bodily function? How? (Chest pain, [place], [place], pneumonia, PE, COPD, DKA, ARF, appy, cholecystitis, CVA, Diverticulitis, Homicidal, Suicidal, threat to staff... and all critical care pts) @ -[Moderate risk, ACS - Lab Data Result diagrams: 12/18/23 09:47 12/18/23 09:47 Lab Results 12/18/23 12/18/23 12/18/23 Range/Units 09:47 09:47 09:47 WBC 7.0 (3.8-10.6) k/uL RBC 4.41 (3.80-5.40) m/uL Hgb 14.1 (11.4-16.0) gm/dL Hct 42.2 (34.0-46.0) % MCV 95.8 (80.0-100.0) fL MCH 31.9 (25.0-35.0) pg MCHC 33.3 (31.0-37.0) g/dL RDW 12.4 (11.5-15.5) % Plt Count 246 (150-450) k/uL MPV 7.6 Neutrophils % 60 % Lymphocytes % 29 % Monocytes % 6 % Eosinophils % 3 % Basophils % 1 % Neutrophils # 4.2 (1.3-7.7) k/uL Lymphocytes # 2.1 (1.0-4.8) k/uL Monocytes # 0.4 (0-1.0) k/uL Eosinophils # 0.2 (0-0.7) k/uL Basophils # 0.0 (0-0.2) k/uL PT 10.3 (10.0-12.5) sec INR 0.9 (<1.2) APTT 24.8 (22.0-30.0) sec Sodium 141 (137-145) mmol/L Potassium 4.2 (3.5-5.1) mmol/L Chloride 107 (98-107) mmol/L Carbon Dioxide 25 (22-30) mmol/L Anion Gap 9 mmol/L BUN 12 (7-17) mg/dL Creatinine 0.71 (0.52-1.04) mg/dL Est GFR (CKD-EPI)AfAm >90 (>60 ml/min/1.73 sqM) Est GFR (CKD-EPI)NonAf 89 (>60 ml/min/1.73 sqM) Glucose 104 H (74-99) mg/dL Calcium 9.0 (8.4-10.2) mg/dL Magnesium 1.9 (1.6-2.3) mg/dL Total Bilirubin 0.7 (0.2-1.3) mg/dL AST 28 (14-36) U/L ALT 15 (4-34) U/L Alkaline Phosphatase 69 (38-126) U/L Troponin I (0.000-0.034) ng/mL Total Protein 7.0 (6.3-8.2) g/dL Albumin 4.3 (3.5-5.0) g/dL Lipase 106 (23-300) U/L 12/18/23 Range/Units 09:47 WBC (3.8-10.6) k/uL RBC (3.80-5.40) m/uL Hgb (11.4-16.0) gm/dL Hct (34.0-46.0) % MCV (80.0-100.0) fL MCH (25.0-35.0) pg MCHC (31.0-37.0) g/dL RDW (11.5-15.5) % Plt Count (150-450) k/uL MPV Neutrophils % % Lymphocytes % % Monocytes % % Eosinophils % % Basophils % % Neutrophils # (1.3-7.7) k/uL Lymphocytes # (1.0-4.8) k/uL Monocytes # (0-1.0) k/uL Eosinophils # (0-0.7) k/uL Basophils # (0-0.2) k/uL PT (10.0-12.5) sec INR (<1.2) APTT (22.0-30.0) sec Sodium (137-145) mmol/L Potassium (3.5-5.1) mmol/L Chloride (98-107) mmol/L Carbon Dioxide (22-30) mmol/L Anion Gap mmol/L BUN (7-17) mg/dL Creatinine (0.52-1.04) mg/dL Est GFR (CKD-EPI)AfAm (>60 ml/min/1.73 sqM) Est GFR (CKD-EPI)NonAf (>60 ml/min/1.73 sqM) Glucose (74-99) mg/dL Calcium (8.4-10.2) mg/dL Magnesium (1.6-2.3) mg/dL Total Bilirubin (0.2-1.3) mg/dL AST (14-36) U/L ALT (4-34) U/L Alkaline Phosphatase (38-126) U/L Troponin I <0.012 (0.000-0.034) ng/mL Total Protein (6.3-8.2) g/dL Albumin (3.5-5.0) g/dL Lipase (23-300) U/L Disposition Clinical Impression: Chest pain Disposition: ADMITTED IP TO THIS HOSP Condition: Stable Is patient prescribed a controlled substance at d/c from ED?: No Referrals: Reid Montano MD [Primary Care Provider] - 1-2 days Time of Disposition: 11:21
[2023-12-18 10:09] LABS: INR 0.9 (<1.2); Partial Thromboplastin Time 24.8 sec (22.0-30.0); Prothrombin Time 10.3 sec (10.0-12.5)
[2023-12-18 10:14] LABS: ALT 15 U/L (4-34); AST 28 U/L (14-36); African American GFR (CKD) >90 (>60 ml/min/1.73 sqM); Albumin 4.3 g/dL (3.5-5.0); Alkaline Phosphatase 69 U/L (38-126); Anion Gap 9 mmol/L; Blood Urea Nitrogen 12 mg/dL (7-17); Carbon Dioxide 25 mmol/L (22-30); Chloride 107 mmol/L (98-107); Glucose 104 mg/dL (74-99); Lipase 106 U/L (23-300); Magnesium 1.9 mg/dL (1.6-2.3); Non-African American GFR(CKD) 89 (>60 ml/min/1.73 sqM); Potassium 4.2 mmol/L (3.5-5.1); Sodium 141 mmol/L (137-145); Total Bilirubin 0.7 mg/dL (0.2-1.3)
--- NOTE | 2023-12-18 10:38 | XR ---
EXAMINATION TYPE: XR chest 2V DATE OF EXAM: 12/18/2023 COMPARISON: NONE CLINICAL INDICATION: Female, 68 years old with history of Chest Pain; , TECHNIQUE: XR chest 2V views of the chest. FINDINGS: The lungs are clear and there is no pneumothorax, pleural effusion, or focal pneumonia. Heart size normal and no overt failure. Osseous structures demonstrate hypertrophic and degenerative changes of the spine. Calcified granuloma right midlung. Arthropathy of the shoulders. Biapical pleural thickeni ng. Hyperexpansion suggests COPD. IMPRESSION: 1. No acute process. [facility], , 12/18/2023 10:36 AM
[2023-12-18] MEDS ORDERED: NALOXONE 0.4 MG/ML 1 ML VIAL IV PRN (11:18)
[2023-12-18] MEDS ORDERED: ACETAMINOPHEN TAB 325 MG TAB PO PRN (11:18)
[2023-12-18] MEDS ORDERED: NITROGLYCERIN SL TABS 0.4 MG TAB SUBLINGUAL PRN (13:55)
[2023-12-18] MEDS ORDERED: ALBUTEROL NEBULIZED 2.5 MG/3 ML INHALATION PRN (13:55)
--- NOTE | 2023-12-18 14:41 | P.HPIM ---
History of Present Illness H&P Date: 12/18/23 Chief Complaint: Heartburn This is a pleasant 68-year-old patient who follows with Dr. Montano. Director Risk Dr. Arriaga. Chronic stable medical conditions include asthma, GERD, decreased hearing, hypertension, hyperlipidemia, osteoarthritis, hypothyroid, anxiety depression. Reflux. February 2022.-Acute non-Q wave HI. Cardiac catheterization-d normal coronaries. [place] to be [place] Patient now presents with 3 days of increasing heartburn, significant specially at night. This morning the heartburn did not get relieved in the morning. Persisted. Decided to come in. Patient has seen Dr. Juaquin Crawford from GI in the past. Has had EGD a while ago. Patient underwent a stress echocardiogram in July of this year. That was negative. Cardiac catheterization in March 05 w as negative. Denies any chest pain. Otherwise no cardiac symptoms with activity. Baby aspirin Review of systems: GEN.: Tired EYES: None HEENT: None NECK: None RESPIRATORY: None CARDIOVASCULAR: As above GASTROINTESTINAL: As above GENITOURINARY: None MUSCULOSKELETAL: Joint pain LYMPHATICS: None HEMATOLOGICAL: None PSYCHIATRY: None NEUROLOGICAL: None. Past medical history to include: Asthma, GERD, GI bleed, decreased hearing, hypertension, hyperlipidemia, osteoporosis, hypothyroid, anxiety depression,[place]-acute non-Q wave HI with normal coronaries Social history: No smoking or alcohol. Lives alone. 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 Physical examination: VITAL SIGNS: 4, 80, 18, 159 x 95, 96% room air GENERAL: 37.1, reclining bed awake comfortable EYES: Pupils equal. Conjunctiva normal. HEENT: External appearance of nose and ears normal, oral cavity grossly normal. NECK: JVD not raised; masses not palpable. HEART: First and second heart sounds are normal; no edema. LUNGS: Respiratory rate normal; clear to auscultation. ABDOMEN: Soft, nontender, liver spleen not palpable, no masses palpable. PSYCH: Alert and oriented x3; mood and affect normal. MUSCULOSKELETAL:No Clubbing/cyanosis;muscles-grossly intact. OA. . NEUROLOGICAL: Cranial nerves grossly intact; no facial asymmetry, power and sensation grossly intact. LYMPHATICS: No lymph nodes palpable in the axilla and neck INVESTIGATIONS, reviewed in the clinical context: December 18, 2023: White count 7 hemoglobin 14.1 platelets 246 sodium 144 141 potassium 4.2 creatinine 0.71 Troponin I less than 0.012 x 2 9 EKG tracing personally reviewed by me-normal sinus rhythm. Chest x-ray film personally reviewed by me-lung baldwin clear Previous test Dobutamine stress echocardiogram [July 2023]: Negative 2D echocardiogram: EF 55 to 60% Cardiac catheterization February 2022: Normal coronaries Assessment and plan: -Anterior chest wall burning sensation. The patient of GERD Troponins x 2negative Change Protonix to 40 mg twice daily. Add scheduled Tums. Consult GI for possible EGD -Prior history of non-Q wave HI. With cardiac catheterization in February 2022 showing normal coronaries. Was then diagnosed with [place]. Patient had a negative stress echocardiogram in July of this year. Cardiology consulted -Obesity BMI 37.1 Weight loss measures -Hypothyroid Synthroid 25 g -Primary osteoarthritis Tylenol as needed -Hyperlipidemia Lipitor 40 mg daily at bedtime Insomnia Desyrel 50 mg nightly -Depression and anxiety not otherwise specified Xanax when necessary, Cymbalta -Full code Care was discussed with the patient. Past Medical History Past Medical History: Asthma, GERD/Reflux, GI Bleed, Hearing Disorder / Deafnes s, Hyperlipidemia, Hypertension, Musculoskeletal Disorder, Osteoarthritis (OA), Thyroid Disorder Additional Past Medical History / Comment(s): DEAF LT EAR, [place] RT EAR. HTN IN PAST. HAD STEROID INJ X2 IN PAST WK TO LT SIDE OF THIGH - HAS BURNING PAIN, SCHEDULED TO HAVE EMG., "small vessel disease" History of Any Multi-Drug Resistant Organisms: None Reported Past Surgical History: Ear Surgery, Joint Replacement, Orthopedic Surgery, Tonsillectomy Additional Past Surgical History / Comment(s): TOTAL LT KNEE. LT ROTATOR CUFF REPAIR. LT HAND JOINT SURG X2. SINUS SURG, LEFT FEMUR SURGERY, TOTAL RIGHT KNEE Past Anesthesia/Blood Transfusion Reactions: Postoperative Nausea & Vomiting (PONV) Past Psychological History: Anxiety, Depression, Panic Disorder Smoking Status: Never smoker Past Alcohol Use History: None Reported Past Drug Use History: None Reported - Past Family History Brother(s) Family Medical History: Cancer Mother Family Medical History: Deep Vein Thrombosis (DVT) Medications and Allergies Home Medications Medication Instructions Recorded Confirmed Type DULoxetine HCL [Cymbalta] 60 mg PO HS 08/10/13 12/18/23 History Fluticasone Propionate [Flonase] 1 spray EA NOSTRIL DAILY 08/10/13 12/18/23 History Omeprazole [PriLOSEC] 20 mg PO DAILY PRN 08/10/13 12/18/23 History traZODone HCL [Desyrel] 50 mg PO HS 07/13/15 12/18/23 History Cetirizine HCl [Zyrtec] 5 mg PO HS 08/06/16 12/18/23 History Atorvastatin [Lipitor] 40 mg PO HS 03/27/17 12/18/23 History ALPRAZolam [Xanax] 0.125 - 0.25 mg PO Q8H PRN 02/15/22 12/18/23 History Ascorbic Acid [Vitamin C] 1,000 mg PO BID 02/15/22 12/18/23 History Budesonide [Pulmicort Flexhaler] 1 puff INHALATION RT-DAILY 02/15/22 12/18/23 History Cholecalciferol [Vitamin D3 (25 25 mcg PO BID 02/15/22 12/18/23 History Mcg = 1000 Iu)] Montelukast [Singulair] 10 mg PO DAILY 02/15/22 12/18/23 History Vitamin B Complex 1 cap PO DAILY 02/15/22 12/18/23 History Zinc Gluconate [Zinc] 50 mg PO BID 02/15/22 12/18/23 History flaxseed oiL [[place]-3 Flaxseed Oil] 1,000 mg PO DAILY 02/15/22 12/18/23 History Aspirin 81 mg PO DAILY tab 02/18/22 12/18/23 Rx Nitroglycerin Sl Tabs [Nitrostat] 0.4 mg SUBLINGUAL Q5M PRN #30 tab 02/18/22 12/18/23 Rx Calcium Carbonate [Calcium] 600 mg PO DAILY 07/17/23 12/18/23 History Levothyroxine Sodium [Synthroid] 50 mcg PO DAILY 07/17/23 12/18/23 History Acetaminophen Tab [Tylenol Tab] 500 mg PO Q6HR PRN 12/18/23 12/18/23 History Albuterol Nebulized [Ventolin 2.5 mg INHALATION RT-QID PRN 12/18/23 12/18/23 Hi story Nebulized] Magnesium 250 mg PO BID 12/18/23 12/18/23 History Meclizine [Antivert] 25 mg PO TID PRN 12/18/23 12/18/23 History Sucralfate [Carafate] 1 gm PO BID PRN 12/18/23 12/18/23 History Allergies Allergy/AdvReac Type Severity Reaction Status Date / Time naproxen [From Aleve] Allergy Abdominal Verified 12/18/23 12:09 Pain topiramate [From Topamax] Allergy Abdominal Verified 12/18/23 12:09 Pain aspirin AdvReac Severe GI Bleeding Verified 12/18/23 12:09 diphenhydramine AdvReac Severe Wheezing Verified 12/18/23 12:09 [From Benadryl] codeine AdvReac Abdominal Verified 12/18/23 12:09 Pain menthol AdvReac Chest Pain Verified 12/18/23 12:09 NSAIDS (Non-Steroidal AdvReac Abdominal Verified 12/18/23 12:09 Anti-Inflamma Pain Tetracyclines AdvReac Diarrhea Verified 12/18/23 12:09 Physical Exam Vitals: Vital Signs Temp Pulse Pulse Resp BP Pulse Ox 12/18/23 12:18 80 18 159/95 96 12/18/23 11:35 98.4 F 84 18 163/97 97 12/18/23 09:55 98.2 F 85 18 152/76 97 12/18/23 09:43 90 12/18/23 09:30 98.1 F 105 H 20 162/83 97 Intake and Output 12/17/23 12/18/23 12/18/23 22:59 06:59 14:59 Other: Weight 92.079 kg Results CBC & Chem 7: 12/18/23 09:47 12/18/23 09:47 Labs: Abnormal Lab Results - Last 24 Hours (Table) 12/18/23 Range/Units 09:47 Glucose 104 H (74-99) mg/dL
[2023-12-18] MEDS: FLUTICASONE 44 MCG INHALER INHALATION SCH (14:46)
[2023-12-18] MEDS: ASPIRIN 81 MG PO SCH (14:48)
[2023-12-18] MEDS: ENOXAPARIN 40 MG/0.4 ML SYRINGE SQ SCH (14:49)
[2023-12-18] MEDS: CALCIUM CARBONATE 500 MG CHEWABLE PO SCH (14:49)
[2023-12-18] MEDS: CHOLECALCIFEROL 25 MCG (1000 IU) TABLET PO SCH (14:49)
[2023-12-18] MEDS: PANTOPRAZOLE 40 MG TABLET PO SCH (16:39)
[2023-12-18] MEDS: LORATADINE 10 MG TAB PO SCH (20:08)
[2023-12-18] MEDS: ATORVASTATIN 40 MG TAB PO SCH (20:08)
[2023-12-18] MEDS: ASCORBIC ACID 500 MG TAB PO SCH (20:08)
[2023-12-18] MEDS: MAGNESIUM OXIDE 400 MG TAB PO SCH (20:08)
[2023-12-18] MEDS: DULoxetine HCL 60 MG CAPSULE.DR PO SCH (20:08)
[2023-12-18] MEDS: traZODone HCL 50 MG TAB PO SCH (20:09)
[2023-12-19] MEDS: LEVOTHYROXINE 50 MCG TAB PO SCH (06:12)
[2023-12-19] MEDS ORDERED: PANTOPRAZOLE 40 MG/10 ML VIAL IV SCH (09:00)
[2023-12-19] MEDS: amLODIPine 5 MG TAB PO SCH (09:01)
[2023-12-19] MEDS: FOLIC ACID-VIT B COMPLEX-VIT C 1 CAP PO SCH (09:01)
[2023-12-19] MEDS: MONTELUKAST 10 MG TAB PO SCH (09:02)
--- NOTE | 2023-12-19 10:12 | P.CRDCN ---
History of Present Illness History of present illness: HISTORY OF PRESENT ILLNESS: This is a 68-year-old female with a past medical history significant for hyperlipidemia, hypothyroidism, and normal coronary arteries. Patient follows in the office with Dr. Arriaga. We have been asked to see the patient in consultation for chest pain. Patient examined at the bedside. Patient states she has been having chest pain and epigastric pain for the past 3 days. She states the pain felt like heartburn. She denies having any radiation of the pain. She denies any shortness of breath. Vital signs are stable. DIAGNOSTICS: - EKG reveals sinus mechanism with no signs of acute ischemia - Chest xray negative for acute process - Laboratory data: WBC 7.0. Hemoglobin 14.1. Platelet count 246. Sodium 141. Potassium 4.2. BUN 12. Creatinine 0.71. Magnesium 1.9. Troponin negative x 3. - Current home cardiac medications include aspirin 81 mg daily and Lipitor 40 mg at night - Most recent echocardiogram obtained in July 2023 reveals ejection fraction 55 to 60% with trace to mild mitral regurg - Cardiac catheterization history: February 2022 revealing normal coronary arteries - Patient underwent dobutamine stress test in July 2023 which was negative for ischemia REVIEW OF SYSTEMS: At the time of my exam: CONSTITUTIONAL: Denies fever or chills. HEENT: Denies blurred vision, vision changes, or eye pain. Denies hemoptysis CARDIOVASCULAR: Denies chest pain. Denies orthopnea. Denies PND. Denies palpitations RESPIRATORY: Denies shortness of breath. GASTROINTESTINAL: Denies abdominal pain. Denies nausea or vomiting. HEMATOLOGIC: Denies bleeding disorders. GENITOURINARY: Denies any blood in urine. SKIN: Denies pruitis. Denies rash. PHYSICAL EXAM: VITAL SIGNS: Reviewed. GENERAL: Well-developed in no acute distress. HEENT: Head is normocephalic. Pupils are equal, round. Sclerae anicteric. Mucous membranes of the mouth are moist. Neck supple. No JVD or thyromegaly LUNGS: Respirations even and unlabored. Lungs essentially clear to auscultation bilaterally. HEART: Regular rate and rhythm. S1 and S2 heard. ABDOMEN: Soft. Nondistended. Nontender. EXTREMITIES: Normal range of motion. No clubbing or cyanosis. Peripheral puls es intact. No lower extremity edema NEUROLOGIC: Awake and alert. Oriented x 3. ASSESSMENT: Chest pain, atypical, troponin negative x 3 Epigastric pain, rule out GI etiology Normal coronary arteries, per cath in 2022 Hyperlipidemia Hypothyroidism Obesity: BMI 37.1 PLAN: An acute coronary event has been ruled out Obtain 2D echo to assess cardiac structure and function Resume home cardiac medications Per recent cardiology notes of Dr. Arriaga in the office, patient may have possible small vessel disease. Will add amlodipine 5 mg daily GI on consult. Await further recommendations Patient is currently stable from a cardiac perspective Further recommendations pending patient course Nurse practitioner note has been reviewed by physician. Signing provider agrees with the documented findings, assessment, and plan of care documented by CAREER TECHNICAL SUPERVISOR as a scribe. Past Medical History Past Medical History: Asthma, GERD/Reflux, GI Bleed, Hearing Disorder / Deaf ness, Hyperlipidemia, Hypertension, Musculoskeletal Disorder, Osteoarthritis (OA), Thyroid Disorder Additional Past Medical History / Comment(s): DEAF LT EAR, [place] RT EAR. HTN IN PAST. HAD STEROID INJ X2 IN PAST WK TO LT SIDE OF THIGH - HAS BURNING PAIN, SCHEDULED TO HAVE EMG., "small vessel disease" History of Any Multi-Drug Resistant Organisms: None Reported Past Surgical History: Ear Surgery, Joint Replacement, Orthopedic Surgery, Tonsillectomy Additional Past Surgical History / Comment(s): TOTAL LT KNEE. LT ROTATOR CUFF REPAIR. LT HAND JOINT SURG X2. SINUS SURG, LEFT FEMUR SURGERY, TOTAL RIGHT KNEE Past Anesthesia/Blood Transfusion Reactions: Postoperative Nausea & Vomiting (PONV) Past Psychological History: Anxiety, Depression, Panic Disorder Additional Psychological History / Comment(s): HX PANIC ATTACK Smoking Status: Never smoker Past Alcohol Use History: None Reported Past Drug Use History: None Reported - Past Family History Brother(s) Family Medical History: Cancer Mother Family Medical History: Deep Vein Thrombosis (DVT) Medications and Allergies Home Medications Medication Instructions Recorded Confirmed Type DULoxetine HCL [Cymbalta] 60 mg PO HS 08/10/13 12/18/23 History Fluticasone Propionate [Flonase] 1 spray EA NOSTRIL DAILY 08/10/13 12/18/23 History Omeprazole [PriLOSEC] 20 mg PO DAILY PRN 08/10/13 12/18/23 History traZODone HCL [Desyrel] 50 mg PO HS 07/13/15 12/18/23 History Cetirizine HCl [Zyrtec] 5 mg PO HS 08/06/16 12/18/23 History Atorvastatin [Lipitor] 40 mg PO HS 03/27/17 12/18/23 History ALPRAZolam [Xanax] 0.125 - 0.25 mg PO Q8H PRN 02/15/22 12/18/23 History Ascorbic Acid [Vitamin C] 1,000 mg PO BID 02/15/22 12/18/23 History Budesonide [Pulmicort Flexhaler] 1 puff INHALATION RT-DAILY 02/15/22 12/18/23 History Cholecalciferol [Vitamin D3 (25 25 mcg PO BID 02/15/22 12/18/23 History Mcg = 1000 Iu)] Montelukast [Singulair] 10 mg PO DAILY 02/15/22 12/18/23 History Vitamin B Complex 1 cap PO DAILY 02/15/22 12/18/23 History Zinc Gluconate [Zinc] 50 mg PO BID 02/15/22 12/18/23 History flaxseed oiL [[place]-3 Flaxseed Oil] 1,000 mg PO DAILY 02/15/22 12/18/23 History Aspirin 81 mg PO DAILY tab 02/18/22 12/18/23 Rx Nitroglycerin Sl Tabs [Nitrostat] 0.4 mg SUBLINGUAL Q5M PRN #30 tab 02/18/22 12/18/23 Rx Calcium Carbonate [Calcium] 600 mg PO DAILY 07/17/23 12/18/23 History Levothyroxine Sodium [Synthroid] 50 mcg PO DAILY 07/17/23 12/18/23 History Acetaminophen Tab [Tylenol Tab] 500 mg PO Q6HR PRN 12/18/23 12/18/23 History Albuterol Nebulized [Ventolin 2.5 mg INHALATION RT-QID PRN 12/18/23 12/18/23 History Nebulized] Magnesium 250 mg PO BID 12/18/23 12/18/23 History Meclizine [Antivert] 25 mg PO TID PRN 12/18/23 12/18/23 History Sucralfate [Carafate] 1 gm PO BID PRN 12/18/23 12/18/23 History Allergies Allergy/AdvReac Type Severity Reaction Status Date / Time naproxen [From Aleve] Allergy Abdominal Verified 12/18/23 12:09 Pain topiramate [From Topamax] Allergy Abdominal Verified 12/18/23 12:09 Pain aspirin AdvReac Severe GI Bleeding Verified 12/18/23 12:09 diphenhydramine AdvReac Severe Wheezing Verified 12/18/23 12:09 [From Benadryl] codeine AdvReac Abdominal Verified 12/18/23 12:09 Pain menthol AdvReac Chest Pain Verified 12/18/23 12:09 NSAIDS (Non-Steroidal AdvReac Abdominal Verified 12/18/23 12:09 Anti-Inflamma Pain Tetracyclines AdvReac Diarrhea Verified 12/18/23 12:09 Physical Exam Vitals: Vital Signs Temp Pulse Pulse Pulse Resp BP BP 12/19/23 08:25 12/19/23 07:00 97.8 F 80 18 136/70 12/19/23 02:00 98.1 F 83 18 12/18/23 20:00 98.2 F 84 18 140/77 12/18/23 18:14 98.4 F 80 18 142/86 12/18/23 17:25 95 20 145/80 12/18/23 16:02 98.3 F 86 16 161/89 12/18/23 14:50 98.0 F 94 18 167/84 12/18/23 12:18 80 18 159/95 12/18/23 11:35 98.4 F 84 18 163/97 12/18/23 09:55 98.2 F 85 18 152/76 BP Pulse Ox 12/19/23 08:25 97 12/19/23 07:00 95 12/19/23 02:00 121/70 95 12/18/23 20:00 94 L 12/18/23 18:14 96 12/18/23 17:25 97 12/18/23 16:02 96 12/18/23 14:50 97 12/18/23 12:18 96 12/18/23 11:35 97 12/18/23 09:55 97 Intake and Output 12/18/23 12/19/23 12/19/23 22:59 06:59 14:59 Intake Total 240 0 320 Balance 240 0 320 Intake: Oral 240 0 320 Other: # Voids 2 2 Weight 92.079 kg Results 12/18/23 09:47 12/18/23 09:47 Cardiac Enzymes 12/18/23 12/18/23 12/18/23 Range/Units 09:47 09:47 12:17 AST 28 (14-36) U/L Troponin I <0.012 <0.012 (0.000-0.034) ng/mL 12/18/23 Range/Units 15:16 AST (14-36) U/L Troponin I <0.012 (0.000-0.034) ng/mL Coagulation 12/18/23 Range/Units 09:47 PT 10.3 (10.0-12.5) sec APTT 24.8 (22.0-30.0) sec CBC 12/18/23 Range/Units 09:47 WBC 7.0 (3.8-10.6) k/uL RBC 4.41 (3.80-5.40) m/uL Hgb 14.1 (11.4-16.0) gm/dL Hct 42.2 (34.0-46.0) % Plt Count 246 (150-450) k/uL Comprehensive Metabolic Panel 12/18/23 Range/Units 09:47 Sodium 141 (137-145) mmol/L Potassium 4.2 (3.5-5.1) mmol/L Chloride 107 (98-107) mmol/L Carbon Dioxide 25 (22-30) mmol/L BUN 12 (7-17) mg/dL Creatinine 0.71 (0.52-1.04) mg/dL Glucose 104 H (74-99) mg/dL Calcium 9.0 (8.4-10.2) mg/dL AST 28 (14-36) U/L ALT 15 (4-34) U/L Alkaline Phosphatase 69 (38-126) U/L Total Protein 7.0 (6.3-8.2) g/dL Albumin 4.3 (3.5-5.0) g/dL Current Medications Generic Name Dose Route Start Last Admin Trade Name Freq PRN Reason Stop Dose Admin Acetaminophen 650 mg 12/18/23 11:18 Acetaminophen Tab 325 Mg Tab PO Q6HR PRN Mild Pain or Fever > 100.5 Albuterol Sulfate 2.5 mg 12/18/23 13:55 Albuterol Nebulized 2.5 Mg/3 Ml INHALATION RT-QID PRN Shortness Of Breath Amlodipine Besylate 5 mg 12/19/23 09:00 12/19/23 09:01 Amlodipine 5 Mg Tab PO 5 mg DAILY FARIBA Administration Ascorbic Acid 1,000 mg 12/18/23 21:00 12/19/23 09:01 Ascorbic Acid 500 Mg Tab PO 1,000 mg BID FARIBA Administration Aspirin 81 mg 12/18/23 14:00 12/19/23 09:01 Aspirin 81 Mg PO 81 mg DAILY FARIBA Administration Atorvastatin Calcium 40 mg 12/18/23 21:00 12/18/23 20:08 Atorvastatin 40 Mg Tab PO 40 mg HS FARIBA Administration Calcium Carbonate/Glycine 500 mg 12/18/23 14:00 12/19/23 09:02 Calcium Carbonate 500 Mg Chewable PO 500 mg QID FARIBA Administration Cholecalciferol 25 mcg 12/18/23 14:00 12/19/23 09:01 Cholecalciferol 25 Mcg (1000 Iu) Tablet PO 25 mcg BID FARIBA Administration Duloxetine HCl 60 mg 12/18/23 21:00 12/18/23 20:08 Duloxetine Hcl 60 Mg Capsule.Dr PO 60 mg HS FARIBA Administration Fluticasone Propionate 1 puff 12/18/23 08:00 12/19/23 08:24 Fluticasone 44 Mcg Inhaler INHALATION 1 puff RT-BID FARIBA Administration Levothyroxine Sodium 50 mcg 12/19/23 06:30 12/19/23 06:12 Levothyroxine 50 Mcg Tab PO 50 mcg DAILY@0630 FARIBA Administration Loratadine 10 mg 12/18/23 21:00 12/18/23 20:08 Loratadine 10 Mg Tab PO 5 mg HS FARIBA Administration Magnesium Oxide 400 mg 12/18/23 21:00 12/19/23 09:01 Magnesium Oxide 400 Mg Tab PO 400 mg BID FARIBA Administration Montelukast Sodium 10 mg 12/19/23 09:00 12/19/23 09:02 Montelukast 10 Mg Tab PO 10 mg DAILY FARIBA Administration Multivit/Ca Carb/B Cmplx/FA/Prenat 1 each 12/19/23 09:00 12/19/23 09:01 Folic Acid-Vit B Complex-Vit C 1 Cap PO 1 each DAILY FARIBA Administration Naloxone HCl 0.2 mg 12/18/23 11:18 Naloxone 0.4 Mg/Ml 1 Ml Vial IV Q2M PRN Opioid Reversal Nitroglycerin 0.4 mg 12/18/23 13:55 Nitroglycerin Sl Tabs 0.4 Mg Tab SUBLINGUAL Q5M PRN Chest Pain Pantoprazole Sodium 40 mg 12/18/23 17:30 12/19/23 06:12 Pantoprazole 40 Mg Tablet PO 40 mg AC-BID FARIBA Administration Trazodone HCl 50 mg 12/18/23 21:00 12/18/23 20:09 Trazodone Hcl 50 Mg Tab PO 50 mg HS FARIBA Administration Intake and Output 12/18/23 12/19/23 12/19/23 22:59 06:59 14:59 Intake Total 240 0 320 Balance 240 0 320 Intake: Oral 240 0 320 Other: # Voids 2 2 Weight 92.079 kg 12/18/23 09:47 12/18/23 09:47
--- NOTE | 2023-12-19 13:53 | P.CONS ---
History of Present Illness - Reason for Consult Consult date: 12/19/23 Possible EGD Requesting physician: Mac Austin - Chief Complaint Epigastric pain - History of Present Illness Is a pleasant 68-year-old female who presented to the emergency department with complaints of chest pain/epigastric pain and acid reflux. She has a past medica l history including coronary artery disease, GERD, hyperlipidemia and hypertension. She had symptoms for the last 3 days duration and states it became very uncomfortable in her sternum. She called her doctor's office and they told her to come in since she had similar symptoms back in the summer and last year. Troponins were negative x 3. She was seen by cardiology who ruled out acute coronary event. States she is feeling better with the Protonix. She stopped taking her omeprazole and Carafate because she is doing more holistic approach. Only takes them as needed. States she took 1 dose prior to coming in. She denies any blood in her stool or black stool. No abdominal pain nausea or vomiting at this time. States that she does sometimes have some feelings of food getting stuck as it is going down. Review of Systems REVIEW OF SYSTEMS: CARDIOPULMONARY: No chest pain or shortness of breath. Gastrointestinal: Epigastric pain. Gastric reflux. No nausea or vomiting. No hematemesis, coffee-ground emesis. No rectal bleeding, or melena. GENITOURINARY: No dysuria or hematuria. MUSCULOSKELETAL: Reports normal range of motion., Joint pain. SKIN: No rashes. No jaundice. ENDOCRINE: No chills, fevers. No excessive weight gain or loss. No polydipsia or polyuria. PSYCHIATRIC: Unremarkable. NEUROLOGY: No change in mental status. Denies dizziness, headache. ENT: Vision unremarkable. CONSTITUTIONAL: No recent weight loss. No fever, chills, night sweats. Past Medical History Past Medical History: Asthma, GERD/Reflux, GI Bleed, Hearing Disorder / Deafness, Hyperlipidemia, Hypertension, Musculoskeletal Disorder, Osteoarthritis (OA), Thyroid Disorder Additional Past Medical History / Comment(s): DEAF LT EAR, [place] AND [place] RT EAR. HTN IN PAST. HAD STEROID INJ X2 IN PAST WK TO LT SIDE OF THIGH - HAS BURNING PAIN, SCHEDULED TO HAVE EMG., "small vessel disease" History of Any Multi-Drug Resistant Organisms: None Reported Past Surgical History: Ear Surgery, Joint Replacement, Orthopedic Surgery, Tonsillectomy Additional Past Surgical History / Comment(s): TOTAL LT KNEE. LT ROTATOR CUFF REPAIR. LT HAND JOINT SURG X2. SINUS SURG, LEFT FEMUR SURGERY, TOTAL RIGHT KNEE Past Anesthesia/Blood Transfusion Reactions: Postoperative Nausea & Vomiting (PONV) Past Psychological History: Anxiety, Depression, Panic Disorder Additional Psychological History / Comment(s): HX PANIC ATTACK Smoking Status: Never smoker Past Alcohol Use History: None Reported Past Drug Use History: None Reported - Past Family History Brother(s) Family Medical History: Cancer Mother Family Medical History: Deep Vein Thrombosis (DVT) Medications and Allergies Home Medications Medication Instructions Recorded Confirmed Type DULoxetine HCL [Cymbalta] 60 mg PO HS 08/10/13 12/18/23 History Fluticasone Propionate [Flonase] 1 spray EA NOSTRIL DAILY 08/10/13 12/18/23 History Omeprazole [PriLOSEC] 20 mg PO DAILY PRN 08/10/13 12/18/23 History traZODone HCL [Desyrel] 50 mg PO HS 07/13/15 12/18/23 History Cetirizine HCl [Zyrtec] 5 mg PO HS 08/06/16 12/18/23 History Atorvastatin [Lipitor] 40 mg PO HS 03/27/17 12/18/23 History ALPRAZolam [Xanax] 0.125 - 0.25 mg PO Q8H PRN 02/15/22 12/18/23 History Ascorbic Acid [Vitamin C] 1,000 mg PO BID 02/15/22 12/18/23 History Budesonide [Pulmicort Flexhaler] 1 puff INHALATION RT-DAILY 02/15/22 12/18/23 History Cholecalciferol [Vitamin D3 (25 25 mcg PO BID 02/15/22 12/18/23 History Mcg = 1000 Iu)] Montelukast [Singulair] 10 mg PO DAILY 02/15/22 12/18/23 History Vitamin B Complex 1 cap PO DAILY 02/15/22 12/18/23 History Zinc Gluconate [Zinc] 50 mg PO BID 02/15/22 12/18/23 History flaxseed oiL [[place]-3 Flaxseed Oil] 1,000 mg PO DAILY 02/15/22 12/18/23 History Aspirin 81 mg PO DAILY tab 02/18/22 12/18/23 Rx Nitroglycerin Sl Tabs [Nitrostat] 0.4 mg SUBLINGUAL Q5M PRN #30 tab 02/18/22 12/18/23 Rx Calcium Carbonate [Calcium] 600 mg PO DAILY 07/17/23 12/18/23 History Levothyroxine Sodium [Synthroid] 50 mcg PO DAILY 07/17/23 12/18/23 History Acetaminophen Tab [Tylenol Tab] 500 mg PO Q6HR PRN 12/18/23 12/18/23 History Albuterol Nebulized [Ventolin 2.5 mg INHALATION RT-QID PRN 12/18/23 12/18/23 History Nebulized] Magnesium 250 mg PO BID 12/18/23 12/18/23 History Meclizine [Antivert] 25 mg PO TID PRN 12/18/23 12/18/23 History Sucralfate [Carafate] 1 gm PO BID PRN 12/18/23 12/18/23 History Allergies Allergy/AdvReac Type Severity Reaction Status Date / Time naproxen [From Aleve] Allergy Abdominal Verified 12/18/23 12:09 Pain topiramate [From Topamax] Allergy Abdominal Verified 12/18/23 12:09 Pain aspirin AdvReac Severe GI Bleeding Verified 12/18/23 12:09 diphenhydramine AdvReac Severe Wheezing Verified 12/18/23 12:09 [From Benadryl] codeine AdvReac Abdominal Verified 12/18/23 12:09 Pain menthol AdvReac Chest Pain Verified 12/18/23 12:09 NSAIDS (Non-Steroidal AdvReac Abdominal Verified 12/18/23 12:09 Anti-Inflamma Pain Tetracyclines AdvReac Diarrhea Verified 12/18/23 12:09 Physical Exam Vitals: Vital Signs Temp Pulse Pulse Pulse Pulse Resp BP 12/19/23 08:25 12/19/23 07:00 97.8 F 80 18 12/19/23 02:00 98.1 F 83 18 12/18/23 20:00 98.2 F 84 18 12/18/23 18:14 98.4 F 80 18 142/86 12/18/23 17:25 95 20 145/80 12/18/23 16:02 98.3 F 86 16 161/89 12/18/23 14:50 98.0 F 94 18 167/84 12/18/23 12:18 80 18 159/95 12/18/23 11:35 98.4 F 84 18 163/97 12/18/23 09:55 98.2 F 85 18 152/76 12/18/23 09:43 90 BP BP Pulse Ox 12/19/23 08:25 97 12/19/23 07:00 136/70 95 12/19/23 02:00 121/70 95 12/18/23 20:00 140/77 94 L 12/18/23 18:14 96 12/18/23 17:25 97 12/18/23 16:02 96 12/18/23 14:50 97 12/18/23 12:18 96 12/18/23 11:35 97 12/18/23 09:55 97 12/18/23 09:43 Intake and Output 12/18/23 12/19/23 12/19/23 22:59 06:59 14:59 Intake Total 240 0 320 Balance 240 0 320 Intake: Oral 240 0 320 Other: # Voids 2 2 Weight 92.079 kg General appearance: The patient is alert, oriented, appears in no acute distress. HET: Head is normocephalic and atraumatic. Conjunctiva pink. Sclera anicteric. Neck: Supple without lymphadenopathy. Trachea midline. Heart: Regular. Lungs: Equal expansion, normal respiratory effort. Abdomen: Soft, nontender, nondistended. Skin: No rashes. No jaundice. Extremities: Normal skin color and turgor. No pedal edema. Neurological: No focal deficits. Alert and oriented x3. Results CBC & Chem 7: 12/18/23 09:47 12/18/23 09:47 Labs: Abnormal Lab Results - Last 24 Hours (Table) 12/18/23 Range/Units 09:47 Glucose 104 H (74-99) mg/dL Assessment and Plan (1) Epigastric pain Narrative/Plan: 68-year-old female with a history of GERD presenting with reported chest pain. Cardiac workup negative. States that she was having bad feelings of acid reflux and epigastric/sternal pain. States has remote history of ulcer. Not on regular PPI. Likely dealing with acid reflux however need to consider possibility of peptic ulcer disease. Will plan for upper endoscopy tomorrow. Continue PPI. Current Visit: Yes Status: Acute Code(s): R10.13 - EPIGASTRIC PAIN SNOMED Code(s): 22344533 (2) GERD (gastroesophageal reflux disease) Current Visit: Yes Status: Acute Code(s): K21.9 - GASTRO-ESOPHAGEAL REFLUX DISEASE WITHOUT ESOPHAGITIS SNOMED Code(s): 022271958 (3) Chest pain Current Visit: Yes Status: Acute Code(s): R07.9 - CHEST PAIN, UNSPECIFIED SNOMED Code(s): 94755019 Plan: 1. Continue symptomatic and supportive care 2. Diet as tolerated, n.p.o. after midnight 3. Continue Protonix twice daily 4. Continue workup from cardiology, acute coronary event has been ruled out 5. Plan for upper endoscopy tomorrow 6. Discussed with patient antireflux measures Thank you for this consultation, we will continue to follow. Dr. Juaquin Crawford I agree with the dictator's note, documented as a scribe by Annabella Queen.
--- NOTE | 2023-12-19 16:22 | P.PN ---
Progress Note - Text Progress Note Date: 12/19/23 Chief Complaint: Heartburn This is a pleasant 68-year-old patient who follows with Dr. Montano. Survey Research Manager Dr. Arriaga. Chronic stable medical conditions include asthma, GERD, decreased hearing, hypertension, hyperlipidemia, osteoarthritis, hypothyroid, anxiety depression. Reflux. February 2022.-Acute non-Q wave [place]. Cardiac catheterization-d normal coronaries. [place] to be [place] Patient now presents with 3 days of increasing heartburn, significant specially at night. This morning the heartburn did not get relieved in the morning. Persisted. Decided to come in. Patient has seen Dr. Juaquin Crawford from GI in the past. Has had EGD a while ago. Patient underwent a stress echocardiogram in July of this year. That was negative. Cardiac catheterization in March 05 was negative. Denies any chest pain. Otherwise no cardiac symptoms with activity. Baby aspirin December 18: Patient's heartburn symptoms much better. On Protonix and Tums. Plan for EGD tomorrow. No further intervention per cardiology. Up to the bathroom. Active Medications Acetaminophen (Acetaminophen Tab 325 Mg Tab) 650 mg PO Q6HR PRN PRN Reason: Mild Pain or Fever > 100.5 Albuterol Sulfate (Albuterol Nebulized 2.5 Mg/3 Ml) 2.5 mg INHALATION RT-QID PRN PRN Reason: Shortness Of Breath Amlodipine Besylate (Amlodipine 5 Mg Tab) 5 mg PO DAILY [facility] Last Admin: 12/19/23 09:01 Dose: 5 mg Ascorbic Acid (Ascorbic Acid 500 Mg Tab) 1,000 mg PO BID [facility] Last Admin: 12/19/23 09:01 Dose: 1,000 mg Aspirin (Aspirin 81 Mg) 81 mg PO DAILY [facility] Last Admin: 12/19/23 09:01 Dose: 81 mg Atorvastatin Calcium (Atorvastatin 40 Mg Tab) 40 mg PO [facility] Last Admin: 12/18/23 20:08 Dose: 40 mg Calcium Carbonate/Glycine (Calcium Carbonate 500 Mg Chewable) 500 mg PO QID [facility] Last Admin: 12/19/23 14:41 Dose: 500 mg Cholecalciferol (Cholecalciferol 25 Mcg (1000 Iu) Tablet) 25 mcg PO BID [facility] Last Admin: 12/19/23 09:01 Dose: 25 mcg Duloxetine HCl (Duloxetine Hcl 60 Mg Capsule.) 60 mg PO [facility] Last Admin: 12/18/23 20:08 Dose: 60 mg Fluticasone Propionate (Fluticasone 44 Mcg Inhaler) 1 puff INHALATION RT-BID [facility] Last Admin: 12/19/23 08:24 Dose: 1 puff Fluticasone Propionate (Fluticasone Nasal 50mcg/[place] 16gm Btl) 1 spray EA NOSTRIL DAILY [facility] Levothyroxine Sodium (Levothyroxine 50 Mcg Tab) 50 mcg PO DAILY@0630 [facility] Last Admin: 12/19/23 06:12 Dose: 50 mcg Loratadine (Loratadine 10 Mg Tab) 10 mg PO [facility] Last Admin: 12/18/23 20:08 Dose: 5 mg Magnesium Oxide (Magnesium Oxide 400 Mg Tab) 400 mg PO BID [facility] Last Admin: 12/19/23 09:01 Dose: 400 mg Montelukast Sodium (Montelukast 10 Mg Tab) 10 mg PO DAILY [facility] Last Admin: 12/19/23 09:02 Dose: 10 mg Multivit/Ca Carb/B Cmplx/FA/Prenat (Folic Acid-Vit B Complex-Vit C 1 Cap) 1 each PO DAILY [facility] Last Admin: 12/19/23 09:01 Dose: 1 each Naloxone HCl (Naloxone 0.4 Mg/Ml 1 Ml Vial) 0.2 mg IV Q2M PRN PRN Reason: Opioid Reversal Nitroglycerin (Nitroglycerin Sl Tabs 0.4 Mg Tab) 0.4 mg SUBLINGUAL Q5M PRN PRN Reason: Chest Pain Pantoprazole Sodium (Pantoprazole 40 Mg Tablet) 40 mg PO AC-BID [facility] Last Admin: 12/19/23 06:12 Dose: 40 mg Trazodone HCl (Trazodone Hcl 50 Mg Tab) 50 mg PO [facility] Last Admin: 12/18/23 20:09 Dose: 50 mg Past medical history to include: Asthma, GERD, GI bleed, decreased hearing, hypertension, hyperlipidemia, osteoporosis, hypothyroid, anxiety depression,[place]-acute non-Q wave [place] with normal coronaries Social history: No smoking or alcohol. Lives alone. 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 Physical examination: VITAL SIGNS: 98, 77, 17, 143 x 77, 97% room air GENERAL: Comfortable EYES: Pupils equal. Conjunctiva normal. HEENT: External appearance of nose and ears normal, oral cavity grossly normal. NECK: JVD not raised; masses not palpable. HEART: First and second heart sounds are normal; no edema. LUNGS: Respiratory rate normal; clear to auscultation. ABDOMEN: Soft, nontender, liver spleen not palpable, no masses palpable. PSYCH: Alert and oriented x3; mood and affect normal. MUSCULOSKELETAL:No Clubbing/cyanosis;muscles-grossly intact. OA. . INVESTIGATIONS, reviewed in the clinical context: December 18, 2023: White count 7 hemoglobin 14.1 platelets 246 sodium 144 141 potassium 4.2 creatinine 0.71 Troponin I less than 0.012 x 2 9 EKG tracing personally reviewed by me-normal sinus rhythm. Chest x-ray film personally reviewed by me-lung baldwin clear Previous test Dobutamine stress echocardiogram [July 2023]: Negative 2D echocardiogram: EF 55 to 60% Cardiac catheterization February 2022: Normal coronaries Assessment and plan: -Anterior chest wall burning sensation. The patient of GERD Troponins x 2negative Change Protonix to 40 mg twice daily. Added Tums. GI for EGD tomorrow -Prior history of non-Q wave AK. With cardiac catheterization in February 2022 showing normal coronaries. Was then diagnosed with [place]. Patient had a negative stress echocardiogram in July of this year. Cardiology consulted -Obesity BMI 37.1 Weight loss measures -Hypothyroid Synthroid 25 g -Primary osteoarthritis Tylenol as needed -Hyperlipidemia Lipitor 40 mg daily at bedtime Insomnia Desyrel 50 mg nightly -Depression and anxiety not otherwise specified Xanax when necessary, Cymbalta -Full code C doing better. For EGD tomorrow. Past Medical History Past Medical History: Asthma, GERD/Reflux, GI Bleed, Hearing Disorder / Deafness, Hyperlipidemia, Hypertension, Musculoskeletal Disorder, Osteoarthritis (OA), Thyroid Disorder Additional Past Medical History / Comment(s): DEAF LT EAR, [place] RT EAR. HTN IN PAST. HAD STEROID INJ X2 IN PAST WK TO LT SIDE OF THIGH - HAS BURNING PAIN, SCHEDULED TO HAVE EMG., "small vessel disease" History of Any Multi-Drug Resistant Organisms: None Reported Past Surgical History: Ear Surgery, Joint Replacement, Orthopedic Surgery, Tonsillectomy Additional Past Surgical History / Comment(s): TOTAL LT KNEE. LT ROTATOR CUFF REPAIR. LT HAND JOINT SURG X2. SINUS SURG, LEFT FEMUR SURGERY, TOTAL RIGHT KNEE Past Anesthesia/Blood Transfusion Reactions: Postoperative Nausea & Vomiting (PONV) Past Psychological History: Anxiety, Depression, Panic Disorder Smoking Status: Never smoker Past Alcohol Use History: None Reported Past Drug Use History: None Reported
--- NOTE | 2023-12-19 17:07 | CA ---
Transthoracic Echo Report Name: Humaira Garza Age: 68 Gender: F : 1955 Exam Date: 12/19/2023 14:43 Exam Location: [place] [facility] Ht (in): 62 Wt (lb): 203 Ordering Physician: Evelyn Fortune Attending/Referring Phys: [id number], Tong Cv Rn Namita Chavez RDCS Procedure CPT: Indications: LV function, CP Cardiac Hx: Technical Quality: Fair Contrast 1: Total Dose (mL): Contrast 2: Total Dose (mL): MEASUREMENTS (Male / Female) Normal Values 2D ECHO LV Diastolic Diameter PLAX 4.0 cm 4.2 - 5.9 / 3.9 - 5.3 cm LV Systolic Diameter PLAX 2.9 cm IVS Diastolic Thickness 0.9 cm 0.6 - 1.0 / 0.6 - 0.9 cm LVPW Diastolic Thickness 1.0 cm 0.6 - 1.0 / 0.6 - 0.9 cm LV Relative Wall Thickness 0.5 RV Internal Dim ED PLAX 1.2 cm LA Systolic Diameter LX 3.6 cm 3.0 - 4.0 / 2.7 - 3.8 cm LV Diastolic Volume MOD BP 37.5 cm??? 67 - 155 / 56 - 104 cm??? LV Systolic Volume MOD BP 13.6 cm??? - 58 / 19 - 49 cm??? LV Ejection Fraction MOD BP 63.7 % >= 55 % LV Cardiac Index MOD BP 988.9 cm???/min???m??? LV Diastolic Volume MOD 4C 47.4 cm??? LV Systolic Volume MOD 4C 17.7 cm??? LV Ejection Fraction MOD 4C 62.6 % LV Cardiac Index MOD 4C 1229.2 cm???/min???m??? LV Diastolic Length 4C 5.9 cm LV Systolic Length 4C 5.0 cm LV Diastolic Volume MOD 2C 29.2 cm??? LV Systolic Volume MOD 2C 10.7 cm??? LV Ejection Fraction MOD 2C 63.3 % LV Cardiac Index MOD 2C 765.1 cm???/min???m??? LV Diastolic Length 2C 5.7 cm LV Systolic Length 2C 4.9 cm LA Volume 41.3 cm??? 18 - 58 / 22 - 52 cm??? LA Volume Index 20.1 cm???/m??? 16 - 28 cm???/m??? M-MODE Aortic Root Diameter MM 2.7 cm LA Systolic Diameter MM 3.8 cm LA Ao Ratio MM 1.4 AV Cusp Separation MM 1.5 cm FINDINGS Left Ventricle Left ventricular ejection fraction is estimated at 60-65%. Normal left ventricular systolic function with no obvious regional wall motion abnormalities. Left ventricular cavity size normal. Left ventricular wall thickness normal. Right Ventricle Mild right ventricular dilatation. Right Atrium Normal right atrial size. Left Atrium Mild left atrial dilatation. Mitral Valve Moderate mitral annular calcification. Trace to mild mitral regurgitation. No mitral stenosis. Aortic Valve Trileaflet aortic valve. No aortic stenosis. Tricuspid Valve Pulmonic Valve Pericardium No pericardial or pleural effusion. Aorta Normal size aortic root and proximal ascending aorta. CONCLUSIONS Normal LV function Previewed by: Dr. Mitul Crawford MD (Electronically Signed) Final Date: 19 December 2023 17:06
[2023-12-20] MEDS: FLUTICASONE NASAL 50MCG/SPRAY 16GM BTL EA NOSTRIL SCH (08:47)
[2023-12-20] MEDS ORDERED: LIDOCAINE 1% INJ 10MG/ML (20 ML MDV) ONE (16:53)
[2023-12-20] MEDS ORDERED: PROPOFOL 10 MG/ML 20 ML VIAL IV ONE (16:53)
[2023-12-20] MEDS: SODIUM CHLORIDE 0.9% 1,000 ML IV ONE (16:55)
--- NOTE | 2023-12-20 17:26 | P.PCN ---
Date of Procedure: 12/20/23 Procedure(s) Performed: BRIEF HISTORY: Patient is a 68-year-old, pleasant, white female scheduled for an upper endoscopy as a part evaluation of atypical chest pain and history of GERD of several years duration. She was on omeprazole and Carafate in the past when she stopped taking a few months ago. Because of worsening symptoms she is scheduled for an upper endoscopy to evaluate further.. PROCEDURE PERFORMED: Esophagogastroduodenoscopy with biopsy. PREOPERATIVE DIAGNOSIS: Atypical chest pain and history of GERD. IV sedation per anesthesia. PROCEDURE: After informed consent was obtained, the patient was brought into the endoscopy unit. IV sedation was administered by Anesthesia under continuous monitoring. Initially the Olympus GIF-140 video endoscope was inserted into the mouth. Esophagus intubated without any difficulty. It was gradually advanced into the stomach and duodenum and carefully examined. The bulb and the second part of the duodenum appeared normal. The scope at this time was withdrawn to the stomach, adequately insufflated with air, and upon careful examination, mucosa of the antrum, and mild diffuse gastritis and biopsies were done from this area. There were several small polyps noted in the gastric body which were biopsied. Rest of the body, cardia and the fundus appeared normal. The scope was then withdrawn into the esophagus. Small hiatal hernia noted. The GE junction was located at 39 cm from the incisors. The distal esophagus appeared normal. In the mid esophagus between 30 to 33 cm from the incisors. Superficial erosions identified and biopsies were done from this area. Rest of the esophagus appeared normal and the patient tolerated the procedure well. IMPRESSION: 1. Mild antral gastritis. 2. Erosions in the mid esophagus extending from 30 to 33 cm from the incisors status post biopsies 3. Small gastric polyps 4. Sliding-type small hiatal hernia. RECOMMENDATIONS: The findings of this examination were discussed with the patient as well as her family. She was advised to follow-up with the biopsy results. Continue with Protonix 40 mg daily. Advance diet as tolerated.
--- NOTE | 2023-12-20 18:46 | P.DS ---
Providers Date of admission: 12/18/23 11:20 Expected date of discharge: 12/20/23 Attending physician: Mac Austin Consults: 12/18/23 11:18 Consult Physician Routine Consulting Provider: Maryam Arriaga Consult Reason/Comments: CP Do you want consulting provider notified?: Yes 12/18/23 13:54 Consult Physician Routine Consulting Provider: Maddi Crawford Consult Reason/Comments: severe gerd. possible egd Do you want consulting provider notified?: Yes Primary care physician: [facility] Course: Chief Complaint: Heartburn This is a pleasant 68-year-old patient who follows with Dr. Montano. Corn Crop Supervisor Dr. Arriaga. Chronic stable medical conditions include asthma, GERD, decreased hearing, hypertension, hyperlipidemia, osteoarthritis, hypothyroid, anxiety depression. Reflux. February 2022.-Acute non-Q wave [place]. Cardiac catheterization-d normal coronaries. [place] to [place] Patient now presents with 3 days of increasing heartburn, significant specially at night. This morning the heartburn did not get relieved in the morning. Persisted. Decided to come in. Patient has seen Dr. Juaquin Crawford from GI in the past. Has had EGD a while ago. Patient underwent a stress echocardiogram in July of this year. That was negative. Cardiac catheterization in March 05 was negative. Denies any chest pain. Otherwise no cardiac symptoms with activity. Baby aspirin December 18: Patient's heartburn symptoms much better. On Protonix and Tums. Plan for EGD tomorrow. No further intervention per cardiology. Up to the bathroom. December 19: Patient heartburn symptoms greatly resolved. Underwent EGD. Found to have erosions in the mid esophagus. Small gastric polyps. Mild antral gastritis. Should be discharged on Protonix. Follow-up with Dr. Crawford outpatient. Past medical history to include: Asthma, GERD, GI bleed, decreased hearing, hypertension, hyperlipidemia, osteoporosis, hypothyroid, anxiety depression,[place]-acute non-Q wave [place] with normal coronaries Social history: No smoking or alcohol. Lives alone. 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 Physical examination: VITAL SIGNS: 97.9, 77, 18, 148 x 78, 99% room air GENERAL: Comfortable EYES: Pupils equal. Conjunctiva normal. HEENT: External appearance of nose and ears normal, oral cavity grossly normal. NECK: JVD not raised; masses not palpable. HEART: First and second heart sounds are normal; no edema. LUNGS: Respiratory rate normal; clear to auscultation. ABDOMEN: Soft, nontender, liver spleen not palpable, no masses palpable. PSYCH: Alert and oriented x3; mood and affect normal. MUSCULOSKELETAL:No Clubbing/cyanosis;muscles-grossly intact. OA. . INVESTIGATIONS, reviewed in the clinical context: December 18, 2023: White count 7 hemoglobin 14.1 platelets 246 sodium 144 141 potassium 4.2 creatinine 0.71 Troponin I less than 0.012 x 2 9 EKG tracing personally reviewed by me-normal sinus rhythm. Chest x-ray film personally reviewed by me-lung baldwin clear Previous test Dobutamine stress echocardiogram [July 2023]: Negative 2D echocardiogram: EF 55 to 60% Cardiac catheterization February 2022: Normal coronaries Assessment and plan: -Anterior chest wall burning sensation. Secondary to GERD Troponins x 2negative Change Protonix to 40 mg twice daily. Added Tums. GI for EGD tomorrow -Esophagitis secondary to GERD Protonix. Had EGD. Follow-up with Dr. Juaquin Crawford outpatient -Prior history of non-Q wave [place]. With cardiac catheterization in February 2022 showing normal coronaries. Was then diagnosed with [place]. Patient had a negative stress echocardiogram in July of this year. Cardiology consulted -Obesity BMI 37.1 Weight loss measures -Hypothyroid Synthroid 25 g -Primary osteoarthritis Tylenol as needed -Hyperlipidemia Lipitor 40 mg daily at bedtime Insomnia Desyrel 50 mg nightly -Depression and anxiety not otherwise specified Xanax when necessary, Cymbalta -Full code Disposition: Home Past Medical History Past Medical History: Asthma, GERD/Reflux, GI Bleed, Hearing Disorder / Deafness, Hyperlipidemia, Hypertension, Musculoskeletal Disorder, Osteoarthritis (OA), Thyroid Disorder Additional Past Medical History / Comment(s): DEAF LT EAR, [place] RT EAR. HTN IN PAST. HAD STEROID INJ X2 IN PAST WK TO LT SIDE OF THIGH - HAS BURNING PAIN, SCHEDULED TO HAVE EMG., "small vessel disease" History of Any Multi-Drug Resistant Organisms: None Reported Past Surgical History: Ear Surgery, Joint Replacement, Orthopedic Surgery, Tonsillectomy Additional Past Surgical History / Comment(s): TOTAL LT KNEE. LT ROTATOR CUFF REPAIR. LT HAND JOINT SURG X2. SINUS SURG, LEFT FEMUR SURGERY, TOTAL RIGHT KNEE Past Anesthesia/Blood Transfusion Reactions: Postoperative Nausea & Vomiting (PONV) Past Psychological History: Anxiety, Depression, Panic Disorder Smoking Status: Never smoker Past Alcohol Use History: None Reported Past Drug Use History: None Reported Plan - Discharge Summary Discharge Rx Participant: No New Discharge Prescriptions: New amLODIPine [Norvasc] 5 mg PO DAILY #30 tab Pantoprazole [Protonix] 40 mg PO HS #30 tab Calcium Carbonate [Tums] 500 mg PO QID PRN tab PRN Reason: Gi Upset Continue Fluticasone Propionate [Flonase] 1 spray EA NOSTRIL DAILY DULoxetine HCL [Cymbalta] 60 mg PO HS traZODone HCL [Desyrel] 50 mg PO HS Cetirizine HCl [Zyrtec] 5 mg PO HS Atorvastatin [Lipitor] 40 mg PO HS Zinc Gluconate [Zinc] 50 mg PO BID Vitamin B Complex 1 cap PO DAILY Cholecalciferol [Vitamin D3 (25 Mcg = 1000 Iu)] 25 mcg PO BID Ascorbic Acid [Vitamin C] 1,000 mg PO BID Budesonide [Pulmicort Flexhaler] 1 puff INHALATION RT-DAILY Aspirin 81 mg PO DAILY tab Levothyroxine Sodium [Synthroid] 50 mcg PO DAILY Meclizine [Antivert] 25 mg PO TID PRN PRN Reason: Vertigo Acetaminophen Tab [Tylenol] 500 mg PO Q6HR PRN PRN Reason: Fever And/ Or Pain Albuterol Nebulized [Ventolin Nebulized] 2.5 mg INHALATION RT-QID PRN PRN Reason: Shortness Of Breath Magnesium 250 mg PO BID Montelukast [Singulair] 10 mg PO DAILY ALPRAZolam [Xanax] 0.125 - 0.25 mg PO Q8H PRN PRN Reason: Anxiety/Insomnia Nitroglycerin Sl Tabs [Nitrostat] 0.4 mg SUBLINGUAL Q5M PRN #30 tab PRN Reason: Chest Pain Discontinued Omeprazole [PriLOSEC] 20 mg PO DAILY PRN PRN Reason: Gi Upset Sucralfate [Carafate] 1 gm PO BID PRN PRN Reason: Gi Upset Calcium Carbonate [Calcium] 600 mg PO DAILY No Action flaxseed oiL [[place]-3 Flaxseed Oil] 1,000 mg PO DAILY Discharge Medication List DULoxetine HCL [Cymbalta] 60 mg PO HS 08/10/13 [History] Fluticasone Propionate [Flonase] 1 spray EA NOSTRIL DAILY 08/10/13 [History] traZODone HCL [Desyrel] 50 mg PO HS 07/13/15 [History] Cetirizine HCl [Zyrtec] 5 mg PO HS 08/06/16 [History] Atorvastatin [Lipitor] 40 mg PO HS 03/27/17 [History] ALPRAZolam [Xanax] 0.125 - 0.25 mg PO Q8H PRN 02/15/22 [History] Ascorbic Acid [Vitamin C] 1,000 mg PO BID 02/15/22 [History] Budesonide [Pulmicort Flexhaler] 1 puff INHALATION RT-DAILY 02/15/22 [History] Cholecalciferol [Vitamin D3 (25 Mcg = 1000 Iu)] 25 mcg PO BID 02/15/22 [History] Montelukast [Singulair] 10 mg PO DAILY 02/15/22 [History] Vitamin B Complex 1 cap PO DAILY 02/15/22 [History] Zinc Gluconate [Zinc] 50 mg PO BID 02/15/22 [History] flaxseed oiL [[place]-3 Flaxseed Oil] 1,000 mg PO DAILY 02/15/22 [History] Aspirin 81 mg PO DAILY tab 02/18/22 [Rx] Nitroglycerin Sl Tabs [Nitrostat] 0.4 mg SUBLINGUAL Q5M PRN #30 tab 02/18/22 [Rx] Levothyroxine Sodium [Synthroid] 50 mcg PO DAILY 07/17/23 [History] Acetaminophen Tab [Tylenol] 500 mg PO Q6HR PRN 12/18/23 [History] Albuterol Nebulized [Ventolin Nebulized] 2.5 mg INHALATION RT-QID PRN 12/18/23 [History] Magnesium 250 mg PO BID 12/18/23 [History] Meclizine [Antivert] 25 mg PO TID PRN 12/18/23 [History] Calcium Carbonate [Tums] 500 mg PO QID PRN tab 12/20/23 [Rx] Pantoprazole [Protonix] 40 mg PO HS #30 tab 12/20/23 [Rx] amLODIPine [Norvasc] 5 mg PO DAILY #30 tab 12/20/23 [Rx] Follow up Appointment(s)/Referral(s): Reid Montano MD [Primary Care Provider] - 1-2 days (Office is closed please call to schedule follow-up appointment) Maddi Crawford MD [STAFF PHYSICIAN] - 6 Weeks (Please call and schedule follow-up appointment) Patient Instructions/Handouts: GERD (Gastroesophageal Reflux Disease) (DC)
--- NOTE | 2023-12-20 19:38 | PN ---
PROGRESS NOTE SUBJECTIVE: Humaira is a 68-year-old lady with history of hypertension, dyslipidemia, hypothyroidism with normal coronaries and a cardiac catheterization in February 2022, who came to hospital with epigastric pain and chest pain. Her chest discomfort has resolved and she is to undergo an EGD for epigastric pain. OBJECTIVE: GENERAL: Comfortable at rest. VITAL SIGNS: Stable. NECK: There is no jugular venous distention. CHEST: Reveals good air entry bilaterally. HEART: Reveals first and second heart sounds. No gallop. EXTREMITIES: Did not reveal any edema. Peripheral pulses are felt. MEDICATIONS: The patient is currently on, 1. Aspirin. 2. Lipitor. 3. Amlodipine. ASSESSMENT: 1. Atypical chest pain. 2. Hypertension. PLAN: From cardiac standpoint, we will continue on current medications. EGD is going to be done today and no further cardiac workup at this time. I reviewed echo findings with her. MMODL / IJN: [id number] /
[2023-12-20 20:39] VITALS: RESP 17; TEMP 98.2
[2023-12-20 20:41] VITALS: BP 147/82; PULSE 98
== END 2023-12-20 20:44 | disposition home or self-care (01) ==
LOC: EC 09:22 → 6NMEDSUR 11:20
PROVIDERS: ADMIT Hospitalist; ATTEND Hospitalist
DX: K29.70 Gastritis, unspecified, without bleeding (principal); K31.7 Polyp of stomach and duodenum; K44.9 Diaphragmatic hernia without obstruction or gangrene; K22.10 Ulcer of esophagus without bleeding; K21.00 Gastro-esophageal reflux disease with esophagitis, without bleeding; R07.89 Other chest pain; I10 Essential (primary) hypertension; E03.9 Hypothyroidism, unspecified; E78.5 Hyperlipidemia, unspecified; M19.91 Primary osteoarthritis, unspecified site; J45.909 Unspecified asthma, uncomplicated; H91.92 Unspecified hearing loss, left ear; I25.10 Atherosclerotic heart disease of native coronary artery without angina pectoris; I25.2 Old myocardial infarction; G47.00 Insomnia, unspecified; F32.A Depression, unspecified; F41.0 Panic disorder [episodic paroxysmal anxiety]; E66.9 Obesity, unspecified; Z68.37 Body mass index [BMI] 37.0-37.9, adult; Z79.51 Long term (current) use of inhaled steroids; Z79.82 Long term (current) use of aspirin; Z79.899 Other long term (current) drug therapy; Z79.890 Hormone replacement therapy; Z88.1 Allergy status to other antibiotic agents; Z88.5 Allergy status to narcotic agent; Z88.6 Allergy status to analgesic agent; Z88.8 Allergy status to other drugs, medicaments and biological substances
CPT/HCPCS: 96372 ×2; 99285; 36415; 94640 ×4; 94760 ×2; 93005; 93308; 88305; 80053; 83690; 83735; 84484; 85025; 85610; 85730; 71046; 43239; G0378 ×3; J2003; J1650 ×2; J2704; J2470

== ENCOUNTER 2024-03-03 14:34 | Emergency (ER) | payer MEDICARE, OTHER ==
[2024-03-03 15:30] VITALS: RESP 20; TEMP 99.6
--- NOTE | 2024-03-03 15:49 | ED ---
URI HPI - General Source: patient, RN notes reviewed Mode of arrival: wheelchair Limitations: no limitations - History of Present Illness MD Complaint: fever, cough <Jhonny Davila - Last Filed: 03/03/24 15:48> - General Source: patient, RN notes reviewed Mode of arrival: wheelchair Limitations: no limitations <Bianka Serrano - Last Filed: 03/03/24 23:12> - General Chief Complaint: Upper Respiratory Infection Stated Complaint: Cough,ANALISA Time Seen by Provider: 03/03/24 14:49 - History of Present Illness Initial Comments: Quick note: This is a 69-year-old female presenting with productive cough and fever (100 F) x 3 days. Patient also endorses fatigue and bodyaches. Endorses recent sick contact with stranger prior to start of symptoms. Endorses recently started amoxicillin for symptoms. Endorses use of Tylenol with minimal relief. (Jhonny Davila) 69-year-old female presented to the ER for evaluation of cough and fever x 2 days. Patient reports she has been having a persisting cough along with myalgias and chills. She states similar symptoms have been going around at her [employer]. She has been taking OTC tylenol for symptom control. She denies any chest pain, shortness of breath, wheezing, abdominal pain, constipation/diarrhea, urinary complaints or peripheral edema. (Bianka Serrano) - Related Data Home Medications Medication Instructions Recorded Confirmed DULoxetine HCL [Cymbalta] 60 mg PO HS 08/10/13 12/18/23 Fluticasone Propionate [Flonase] 1 spray EA NOSTRIL DAILY 08/10/13 12/18/23 traZODone HCL [Desyrel] 50 mg PO HS 07/13/15 12/18/23 Cetirizine HCl [Zyrtec] 5 mg PO HS 08/06/16 12/18/23 Atorvastatin [Lipitor] 40 mg PO HS 03/27/17 12/18/23 ALPRAZolam [Xanax] 0.125 - 0.25 mg PO Q8H PRN 02/15/22 12/18/23 Ascorbic Acid [Vitamin C] 1,000 mg PO BID 02/15/22 12/18/23 Budesonide [Pulmicort Flexhaler] 1 puff INHALATION RT-DAILY 02/15/22 12/18/23 Cholecalciferol [Vitamin D3 (25 25 mcg PO BID 02/15/22 12/18/23 Mcg = 1000 Iu)] Montelukast [Singulair] 10 mg PO DAILY 02/15/22 12/18/23 Vitamin B Complex 1 cap PO DAILY 02/15/22 12/18/23 Zinc Gluconate [Zinc] 50 mg PO BID 02/15/22 12/18/23 flaxseed oiL [[place]-3 Flaxseed Oil] 1,000 mg PO DAILY 02/15/22 12/18/23 Levothyroxine Sodium [Synthroid] 50 mcg PO DAILY 07/17/23 12/18/23 Acetaminophen Tab [Tylenol] 500 mg PO Q6HR PRN 12/18/23 12/18/23 Albuterol Nebulized [Ventolin 2.5 mg INHALATION RT-QID PRN 12/18/23 12/18/23 Nebulized] Magnesium 250 mg PO BID 12/18/23 12/18/23 Meclizine [Antivert] 25 mg PO TID PRN 12/18/23 12/18/23 Previous Rx's Medication Instructions Recorded Aspirin 81 mg PO DAILY tab 02/18/22 Nitroglycerin Sl Tabs [Nitrostat] 0.4 mg SUBLINGUAL Q5M PRN #30 tab 02/18/22 Calcium Carbonate [Tums] 500 mg PO QID PRN tab 12/20/23 Pantoprazole [Protonix] 40 mg PO HS #30 tab 12/20/23 amLODIPine [Norvasc] 5 mg PO DAILY #30 tab 12/20/23 Oseltamivir [Tamiflu] 75 mg PO Q12HR #10 cap 03/03/24 Allergies Allergy/AdvReac Type Severity Reaction Status Date / Time naproxen [From Aleve] Allergy Abdominal Verified 03/03/24 15:30 Pain topiramate [From Topamax] Allergy Abdominal Verified 03/03/24 15:30 Pain aspirin AdvReac Severe GI Bleeding Verified 03/03/24 15:30 diphenhydramine AdvReac Severe Wheezing Verified 03/03/24 15:30 [From Benadryl] codeine AdvReac Abdominal Verified 03/03/24 15:30 Pain menthol AdvReac Chest Pain Verified 03/03/24 15:30 NSAIDS (Non-Steroidal AdvReac Abdominal Verified 03/03/24 15:30 Anti-Inflamma Pain Tetracyclines AdvReac Diarrhea Verified 03/03/24 15:30 Review of Systems ROS Other: All systems not noted in ROS Statement are negative. <Jhonny Davila - Last Filed: 03/03/24 15:48> ROS Other: All systems not noted in ROS Statement are negative. <Bianka Serrano - Last Filed: 03/03/24 23:12> ROS Statement: Those systems with pertinent positive or pertinent negative responses have been documented in the HPI. Past Medical History Past Medical History: Asthma, GERD/Reflux, GI Bleed, Hearing Disorder / Deafness, Hyperlipidemia, Hypertension, Musculoskeletal Disorder, Osteoarthritis (OA), Thyroid Disorder Additional Past Medical History / Comment(s): DEAF LT EAR, [place] RT EAR. HTN IN PAST. HAD STEROID INJ X2 IN PAST WK TO LT SIDE OF THIGH - HAS BURNING PAIN, SCHEDULED TO HAVE EMG., "small vessel disease" History of Any Multi-Drug Resistant Organisms: None Reported Past Surgical History: Ear Surgery, Joint Replacement, Orthopedic Surgery, Tonsillectomy Additional Past Surgical History / Comment(s): TOTAL LT KNEE. LT ROTATOR CUFF REPAIR. LT HAND JOINT SURG X2. SINUS SURG, LEFT FEMUR SURGERY, TOTAL RIGHT KNEE Past Anesthesia/Blood Transfusion Reactions: Postoperative Nausea & Vomiting (PONV) Past Psychological History: Anxiety, Depression, Panic Disorder Smoking Status: Never smoker Past Alcohol Use History: None Reported Past Drug Use History: None Reported - Past Family History Brother(s) Family Medical History: Cancer Mother Family Medical History: Deep Vein Thrombosis (DVT) <GiovanniJhonny - Last Filed: 03/03/24 15:48> General Exam Limitations: no limitations <GiovanniJhonny - Last Filed: 03/03/24 15:48> Limitations: no limitations General appearance: alert, in no apparent distress ENT exam: Present: normal exam, normal oropharynx, mucous membranes moist, TM's normal bilaterally Respiratory exam: Present: normal lung sounds bilaterally. Absent: respiratory distress, wheezes, rales, rhonchi, stridor Cardiovascular Exam: Present: regular rate, normal rhythm, normal heart sounds. Absent: systolic murmur, diastolic murmur, rubs, gallop, clicks Neurological exam: Present: alert, oriented X3, CN II-XII intact Skin exam: Present: warm, dry, intact, normal color. Absent: rash <Bianka Serrano - Last Filed: 03/03/24 23:12> - General Exam Comments Initial Comments: Visual Physical Exam Vital signs reviewed General: Well-appearing, nontoxic, no acute distress. Head: Normocephalic, atraumatic Eyes: PERRLA, EOMI ENT: Airway patent Chest: Nonlabored breathing Skin: No visual rash, normal skin tone Neuro: Alert and oriented 3 Musculoskeletal: No gross abnormalities (Jhonny Davila) Course Vital Signs 03/03/24 03/03/24 15:27 18:26 Temperature 99.6 F Pulse Rate 125 H 112 H Respiratory 20 20 Rate Blood Pressure 149/75 163/86 O2 Sat by Pulse 96 95 Oximetry Medical Decision Making <Jhonny Davila - Last Filed: 03/03/24 15:48> - Radiology Data Radiology results: report reviewed, image reviewed <Bianka Serrano - Last Filed: 03/03/24 23:12> - Medical Decision Making I completed the quick note portion of this chart signed DEAN Bishop (Jhonny Davila) Was pt. sent in by a medical professional or institution (MALU Ybarra, MANAGER ACCOUNT MANAGEMENT, urgent care, hospital, or longterm...) When possible be specific @ -No Did you speak to anyone other than the patient for history (EMS, parent, family, police, friend...)? What history was obtained from this source @ -No Did you review nursing and triage notes (agree or disagree)? Why? @ -I reviewed and agree with nursing and triage notes Were old charts reviewed (outside hosp., previous admission, EMS record, old EKG, old radiological studies, urgent care reports/EKG's, longterm records)? Report findings @ -No old charts were reviewed Differential Diagnosis (chest pain, altered mental status, abdominal pain women, abdominal pain men, vaginal bleeding, weakness, fever, dyspnea, syncope, headache, dizziness, GI bleed, back pain, seizure, CVA, palpatations, mental health, musculoskeletal)? @ -COVID, RSV, influenza, viral sinusitis, pneumonia, strep pharyngitis, this list is not meant to be all-inclusive EKG interpreted by me (3pts min.). @ -[None done X-rays interpreted by me (1pt min.). @ -CXR interpreted by me negative for focal consolidations. CT interpreted by me (1pt min.). @ -None done U/S interpreted by me (1pt. min.). @ -None done What testing was considered but not performed or refused? (CT, X-rays, U/S, labs)? Why? @ -None What meds were considered but not given or refused? Why? @ -None Did you discuss the management of the patient with other professionals (professionals i.e. , PA, MANAGER ACCOUNT MANAGEMENT, lab, RT, psych nurse, high school social studies teacher, preparation supervisor, teacher, sports development officer, case managers)? Give summary @ -No Was smoking cessation discussed for >3mins.? @ -No Was critical care preformed (if so, how long)? @ -No Were there social determinants of health that impacted care today? How? (Homelessness, low income, unemployed, alcoholism, drug addiction, transportation, low edu. Level, literacy, decrease access to med. care, shelter, rehab)? @ -No Was there de-escalation of care discussed even if they declined (Discuss DNR or withdrawal of care, Hospice)? DNR status @ -No What co-morbidities impacted this encounter? (DM, HTN, Smoking, COPD, CAD, Cancer, CVA, ARF, Chemo, Hep., AIDS, mental health diagnosis, sleep apnea, morbid obesity)? @ -None Was patient admitted / discharged? Hospital course, mention meds given and route, prescriptions, significant lab abnormalities, going to OR and other pertinent info. @ -Discharge. 69-year-old female presented to ER for evaluation of fever and cough. Patient originally seen as a quick note. Upon my examination, patient resting comfortably in wheelchair no signs of acute distress. Patient is tachycardic but this is believed to be due to fever. Vitals otherwise stable. Influenza A positive. Chest x-ray negative. Strep negative. Patient given p.o. Tylenol in the ER for fever control. Tamiflu prescribed. Advised [id number] Tylenol for fever and symptom control outpatient. Patient is stable for discharge and outpatient follow-up. Strict return parameters discussed. Patient discharged in stable condition with follow-up to PCP. Patient verbally expressed understanding and agreement with care plan. Case discussed with ED attending, Dr. Jackson. Undiagnosed new problem with uncertain prognosis? @ -No Drug Therapy requiring intensive monitoring for toxicity (Heparin, Nitro, Insulin, Cardizem)? @ -No Were any procedures done? @ -No Diagnosis/symptom? @ -Influenza A/acute viral sinusitis Acute, or Chronic, or Acute on Chronic? @ -Acute Uncomplicated (without systemic symptoms) or Complicated (systemic symptoms)? @ -Uncomplicated Side effects of treatment? @ -No Exacerbation, Progression, or Severe Exacerbation? @ -No Poses a threat to life or bodily function? How? (Chest pain, [place], PA, pneumonia, PE, COPD, DKA, ARF, appy, cholecystitis, CVA, Diverticulitis, Homicidal, Suicidal, threat to staff... and all critical care pts) @ -No (Bianka Serrano) - Lab Data Lab Results 03/03/24 03/03/24 Range/Units 15:33 15:33 Influenza Type A (PCR) Detected A (Not Detectd) Influenza Type B (PCR) Not Detected (Not Detectd) RSV (PCR) Not Detected (Not Detectd) SARS-CoV-2 (PCR) Not Detected (Not Detectd) Group A Strep (PCR) NOT DETECTED (Not Detectd) Disposition <Jhonny Davila - Last Filed: 03/03/24 15:48> Is patient prescribed a controlled substance at d/c from ED?: No Time of Disposition: 17:25 <Bianka Serrano - Last Filed: 03/03/24 23:12> Clinical Impression: Influenza A, Acute viral sinusitis Disposition: HOME SELF-CARE Condition: Stable Instructions (If sedation given, give patient instructions): Fever in Adults (ED), Influenza (ED) Additional Instructions: Take [id number] Tylenol 650 mg every 6-8 hours for fever control. Take Tamiflu as prescribed. Follow-up with PCP. Return to the ER for new or worsening concerns. Prescriptions: Oseltamivir [Tamiflu] 75 mg PO Q12HR #10 cap Referrals: Reid Montano MD [Primary Care Provider] - 1-2 days
[2024-03-03 16:38] LABS: Influenza A Detected (Not Detectd); Influenza B Not Detected (Not Detectd); RSV Not Detected (Not Detectd)
--- NOTE | 2024-03-03 17:03 | XR ---
EXAMINATION TYPE: XR chest 2V DATE OF EXAM: 03/03/2024 4:50 PM COMPARISON: Chest radiographs from 12/18/2023 CLINICAL INDICATION: Female, 69 years old with history of Cough, fever; TECHNIQUE: XR chest 2V Frontal and lateral views of the chest. FINDINGS: Lungs/Pleura: There is no evidence of pleural effusion, focal consolidation, or pneumothorax. Pulmonary vascularity: Unremarkable. Heart/mediastinum: Cardiomediastinal silhouette is unremarkable. Musculoskeletal: No acute osseous pathology. IMPRESSION: No acute cardiopulmonary disease/process. [facility], , 03/03/2024 5:00 PM
[2024-03-03] MEDS: ACETAMINOPHEN TAB 325 MG TAB PO STA (18:21)
[2024-03-03 18:28] VITALS: BP 163/86; PULSE 112
== END 2024-03-03 18:28 | disposition home or self-care (01) ==
LOC: EC 14:34
DX: J01.90 Acute sinusitis, unspecified (principal); J10.1 Influenza due to other identified influenza virus with other respiratory manifestations; Z88.6 Allergy status to analgesic agent; Z88.5 Allergy status to narcotic agent; Z91.09 Other allergy status, other than to drugs and biological substances; Z88.8 Allergy status to other drugs, medicaments and biological substances
CPT/HCPCS: 71046; 87636; 87651; 99285